=== PATIENT | female | born 1940 | race Caucasian/White ===

== ENCOUNTER 2017-06-15 09:48 | Inpatient (IN) | payer MEDICARE, OTHER, SELFPAY ==
[2017-06-15] VITALS (13 sets, daily range): BP systolic 107–152; BP diastolic 71–112; PULSE 68–94; RESP 16–20; TEMP 36.6–36.7; O2SAT 92–99; BMI 33.9; BMI 31.6; BMI 31.7
--- NOTE | 2017-06-15 09:57 | RAD_ITS ---
STUDY: X-RAY CHEST REASON FOR EXAM: Female, 77 years old. Syncope. TECHNIQUE: Single AP portable view of the chest. COMPARISON: Comparison is made with prior study dated March 15, 2015. FINDINGS: EKG electrodes are seen. Stable mild elevation of the right hemidiaphragm. Mild increased linear density at the left lung base suggestive of linear atelectasis and/or scarring. There is no demonstrated pleural abnormality. There is mild cardiac enlargement. Normal mediastinum and vickie. Normal visualized pulmonary arteries. There is atherosclerotic tortuosity of the aortic arch and descending thoracic aorta. There are diffuse degenerative changes of the visualized thoracic spine. Normal visualized ribs, clavicles, and shoulders. There is no demonstrated abnormality of the visualized soft tissue structures of the upper abdomen. RAD/Chest 1 View (Portable) IMPRESSION: Elevation of the right hemidiaphragm. Linear atelectasis and/or scarring at the left lung base. Electronically Signed: Ryan Jeffers MD at 10:25 EDT Tel [phone], Service support ,
--- NOTE | 2017-06-15 09:57 | EKG12_ITS ---
Test Reason : SINUS ARREST Blood Pressure : / mmHG Vent. Rate : 095 BPM Atrial Rate : 087 BPM P-R Int : 000 ms QRS Dur : 066 ms QT Int : 376 ms P-R-T Axes : 000 006 017 degrees QTc Int : 472 ms Atrial fibrillation Nonspecific ST abnormality Abnormal ECG Confirmed by LISSETT MOORE, AMADEO ([id number]), field map editor CÉSAR KING ([id number]) on 06/19/2017 8:20:51 AM Referred By: ELVIN Confirmed By:AMADEO GALEANA MD
[2017-06-15] MEDS: Aspirin 81 MG TAB.CHEW 324 MG PO (10:14)
[2017-06-15] MEDS: 0.9% Normal Saline 1,000 ML 1000 ML IV (10:15)
[2017-06-15 10:18] LABS: Absolute Lymphocyte Count 1.91 X10^3/ul (0.83-4.51); Absolute Neutrophil Count 2.3 X10^3/uL (2.0-7.7); Basophil# 0.01 X10^3/uL; Basophil% 0.2 % (0-1); Eosinophils% 2.1 % (0-5); Hematocrit 41.1 % (37-47); Hemoglobin 13.7 g/dl (12.0-15.0); Lymphocyte # 1.91 X10^3/ul (4.0); Lymphocyte % 40.6 % (19-41); Mean Corp Hgb Conc 33.3 g/gl (32-36); Mean Corpuscular Hgb 28.8 pg (27.0-32.0); Mean Corpuscular Volume 86.5 fL (81-99); Mean Platelet Vol. 9.6 fl (6.2-12.0); Monocyte# 0.36 X10^3/uL; Monocyte% 7.6 % (0-10); Neutrophil # 2.32 X10^3/uL (2.7-7.7); Neutrophil % 49.3 % (47-70); Platelet Count 234 K/mm3 (150-450); RBC Distribution Width CV 12.7 % (11.6-14.6); RBC Distribution Width SD 39.5 fl (35.1-43.9); Red Blood Count 4.75 M/mm3 (4.2-5.4); White Blood Count 4.7 K/mm3 (4.4-11.0)
[2017-06-15 10:19] LABS: POSITIVE COUNT NO; POSITIVE DIFFERENTIAL NO; POSITIVE MORPHOLOGY NO
[2017-06-15 10:26] LABS: International Normalized Ratio 1.3; Prothrombin Time (Protime)PT. 16.3 SECONDS (11.7-14.9)
[2017-06-15 10:27] LABS: Partial Thromboplast Time 31.4 Seconds (24.1-36.2)
[2017-06-15 10:34] LABS: Anion Gap 8 (5-15); BUN 10 mg/dL (7-18); BUN/Creat Ratio 11.8 RATIO (10-20); Calcium,Total 8.4 mg/dL (8.5-10.1); Chloride 107 mmol/L (98-107); Creatinine, Serum 0.85 mg/dL (0.55-1.02); EST Glomerular Filtration Rate 69 mL/min (>60); Est Glom Filt Rate - Afr Amer 83 mL/min (>60); Estimated Creatinine Clearance 42.45 ml/min; Glucose 121 mg/dL (74-106); Sodium Level 142 mmol/L (136-145)
--- NOTE | 2017-06-15 10:55 | ED.VISSUMM ---
- ER Visit Summary Date of Service: 06/15/17 Chief Complaint: [] Syncope History of Present Illness: The patient is a 77 F [] presents via EMS with several episodes of syncope. EMS reports in route that the patient had several sinus arrest pauses followed by sinus tachycardia. Patient reports her symptoms started last night with dizziness with the first onset of syncope this morning. Patient denies chest pain pre-and post syncopal episodes. She does report palpitations/heart racing. She reports significant dizziness upon arrival. She reports a history of atrial fibrillation on flecainide, Eliquis, lisinopril. Physical Examination: [] Afebrile, vital signs stable. 77-year-old female in no acute distress. Cardiovascular exam was irregularly irregular consistent with atrial fibrillation. Lungs are clear to auscultation with decreased breath sounds at the bases. Abdomen was soft nontender. No significant lower extremity edema. Test Results: [] CBC, BMP within normal limits. INR 1.3. Troponin less than 0.02. EKG shows atrial fibrillation with rate of 95 without ectopy. No previous EKG for comparison. Emergency Department Course and Treatment: [] Patient was immediately evaluated by emergency medicine physician and staff. Patient was in atrial fibrillation and exhibited the previously mentioned sinus pause followed by sinus tachycardia consistent with sick sinus syndrome. She likely requires a pacemaker. Labs and chest x-ray returned normal. We discussed with hospitalist the need for admission to telemetry with consultation to cardiology. Treatment Plan: [] Admit to telemetry unit, consult cardiology. Disposition: [] Admit, stable. Impression: [] Sick sinus syndrome Syncope History of atrial fibrillation Critical care time: 45 minutes This note was generated with [employer] dictation software. It may contain incorrect words, spelling, and punctuation that were not noted in review of the chart prior to signing ED Disposition - Plan for ED Patient: Chief Complaint: Syncope
--- NOTE | 2017-06-15 11:22 | HP.PCM_ITS ---
Problem List (1) Syncope Status: Acute Qualifiers: Syncope type: unspecified Qualified Code(s): R55 - Syncope and collapse (2) Chronic atrial fibrillation Status: Chronic History of Present Illness Date of Admission: 06/15/17 Chief Complaint: Recurrent syncope The patient is a 77 year old F with PMHx chronic atrial fibrillation, on flecainide and metoprolol as well as Eliquis who comes in with complaints of feeling dizzy and passing out several times today. [place] a little bit dizzy yesterday, denied any nausea or vomiting. Noted to have had some sinus pauses and EMS was called. She denied any chest pain or palpitations or fever or chills. Vitals in the ED with stable, orthostatic vitals done on admission were positive , EKG shows atrial fibrillation, telemetry bedtime to go to the floor shows normal sinus rhythm,cardiology has been consulted for possible pacemaker. Past Medical History Past Medical History (Chronic Problems): Chronic Problems Chronic atrial fibrillation (Chronic) Allergies Unable to Assess Allergy (Verified 06/15/17 10:06) Home Medications: Ambulatory Orders Medication Instructions Recorded Allopurinol 100 mg PO DAILY 06/15/17 Apixaban [Eliquis] 5 mg PO BID 06/15/17 Duloxetine HCl 60 mg PO BID 06/15/17 Flecainide [Tambocor] 50 mg PO DAILY 06/15/17 Lisinopril 20 mg PO DAILY 06/15/17 Metoprolol Tartrate [Lopressor] 75 mg PO DAILY 06/15/17 Potassium Chloride [K-Dur] 10 meq PO DAILY 06/15/17 Surgical History: appendectomy, total knee arthroplasty - left, tonsillectomy, - - right foot surgery Psychiatric History: No pertinent psych hx 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 Denies: Anorexia, Chills, Fever, Night Sweats, Malaise, Weight Change Eyes: Denies: Blurred vision, Cataracts, Conjunctivae Inflammation, Double vision, Pain, Redness HEENT: Denies: Difficulty Hearing, Difficulty Swallowing, Head Aches, Hearing Changes, Sinus Congestion, Sinus Drainage Cardiovascular: Reports: Light Headedness, Syncope. Denies: Chest Pain, Claudication, Orthopnea, Palpitations, Paroxysmal Noc. Dyspnea Respiratory: Denies: Cough, Hemoptysis, Pleuritic Pain, Shortness of breath at rest, Shortness of breath upon exertion, Sputum production Gastrointestinal: Denies: Abdominal Pain, Constipation, Hematemesis, Nausea, Vomiting Genitourinary: Denies: Dysuria, Frequency, Incontinence Gynecological: Denies: Breast symptoms, Excessively long or heavy periods Musculoskeletal: Denies: Joint Pain, Joint stiffness, Joint swelling, Joint Tenderness Skin: Denies: Rash, Wounds Neurological: Denies: Numbness, Tingling, Focal weakness Psychiatric: Denies: Anxiety, Depression, Homicidal Ideations, Suicidal Ideations Hematologic/ Lymphatic: Denies: Easy Bruising, Easy Bleeding VTE Information - Inpt Only VTE Present on Admission: No VTE Pharm Prophylaxis ordered?: Yes Patient Problems: Active and Suspected Problems Syncope (Acute) - Physical Exam General: Alert, Oriented x3, Cooperative HEENT: Atraumatic, PERRLA, EOMI, Normocephalic Neck: Supple, No JVD, Negative Carotid Bruits Lungs: Clear to auscultation, Normal air movement Cardiovascular: Regular rate, No murmurs Abdomen: Bowel Sounds Present, Soft, Non Tender Extremities: No edema, Capillary Refill Less than 3 Seconds Skin: No rashes, No breakdown Musculoskeletal: No Tenderness to Palpation of Joints or Extremities Neurological: Cranial nerves II-XII grossly intact Psych/Mental Status: Normal Affect, Appropriate Vital Signs Temp Pulse Resp BP Pulse Ox 98.0 F 91 17 114/101 H 98 06/15/17 09:50 06/15/17 11:05 06/15/17 11:05 06/15/17 11:05 06/15/17 11:05 Oxygen Flow Rate (L/min) 2 Oxygen Delivery Method Nasal Cannula Weight: 84.141 kg Body Mass Index (BMI) 33.9 Laboratory Tests Past 24 Hrs 06/15/17 06/15/17 06/15/17 10:00 10:00 10:00 WBC 4.7 RBC 4.75 Hgb 13.7 Hct 41.1 MCV 86.5 MCH 28.8 MCHC 33.3 RDW 12.7 RDW Differential 39.5 Plt Count 234 MPV 9.6 Immature Gran % (Auto) 0.200 Neut % (Auto) 49.3 Lymph % (Auto) 40.6 Heard % (Auto) 7.6 Eos % (Auto) 2.1 Baso % (Auto) 0.2 Absolute Neuts (auto) 2.3 Absolute Lymphs (auto) 1.91 Total Counted Not Reportable PT 16.3 H INR 1.3 APTT 31.4 Sodium 142 Potassium 4.0 Chloride 107 Carbon Dioxide 27.0 Anion Gap 8 BUN 10 Creatinine 0.85 Estim Creat Clear Calc 42.45 Est GFR (MDRD) Af Amer 83 Est GFR (MDRD) Non-Af 69 BUN/Creatinine Ratio 11.8 Glucose 121 H Calcium 8.4 L Troponin I < 0.02 Assessment/Plan Active and Suspected Problems Syncope (Acute) 77 year old F with PMHx chronic atrial fibrillation, on flecainide and metoprolol as well as Eliquis who comes in with complaints of feeling dizzy and passing out several times today. 1. Recurrent episodes of syncope with sinus pauses seen by EMS, on flecainide, metoprolol, orthostatic vitals are positive Plan; admit to PCU, cardiology consult, monitor on telemetry, IV fluid boluses with maintenance IV fluids, recheck orthostatics in a.m., hold metoprolol and flecainide, monitor on telemetry 2. Chronic atrial fibrillation, on flecainide,, metoprolol, Eliquis, EKG in ED showed A. fib, normal sinus rhythm on telemetry in PCU, will hold Eliquis, metoprolol and flecainide, continue to monitor on telemetry 3. History of recurrent kidney stones, gout, on allopurinol 4. Hypertension, on lisinopril, metoprolol, continue to monitor blood pressure with holding parameters 5. Anxiety/depression on Cymbalta 6. DVT Prophylaxis with heparin subcu Code Visit Inpatient E&M: 97223 Init Hosp L3
[2017-06-15] MEDS: 0.9% Normal Saline 1,000 ML 125 ML IV ×2 (14:53→22:05)
--- NOTE | 2017-06-15 16:21 | CASEMGMT ---
Social Work Pt admitted today and expressing concerns about her . 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 Pt concerned and anxious about care of . Received phone call from [facility] that family has called them with potential admission for pt . SW provided emotional support to pt and assistance with decision making concerning pt spouse at home. Provided information to [facility] on fax number to [facility] medical records and need to fax request for medical records to assist with pt spouse's placement. SW will remain available should further needs arise. RACIEL Watkins
--- NOTE | 2017-06-15 17:10 | CHAPLAIN ---
Type of Pastoral Visit _x__ Initial Visit ___ Follow-up Visit ___ On-call Visit ___ General Patient Visit ___ Spiritual Assessment ___ Family Conference ___ Bereavement ___ Rapid Response ___ Code Blue ___ Other (describe below) Pastoral Care Referral From _x__ Patient ___ Family ___ Nurse ___ Physician ___ Sonoscope Operator ___ Clin Tech ___ Other (describe below) Sacrament/Intervention _x__ Active listening ___ Anointing ___ Congregation ___ Bereavement ___ Communion ___ Sherri exploration ___ ___ Life review _x__ Prayer ___ Reconciliation ___ Sacrament of Sick _x__ Supportive presence ___ Wedding ___ Other (describe below) Pastoral Comments
--- NOTE | 2017-06-15 17:35 | CON.PCM_ITS ---
Reason for Consult Date of Consultation: 06/15/17 Reason for Consultation: Evaluation of abnormal heart rhythm. History of Present Illness: The patient is a 77 year old F with a history of atrial fibrillation probably paroxysmal who was previously been followed by the electrophysiology service admitted in the hospital. She presented to the emergency room today because she had had a few episodes of near syncope. She does not remember that she has had any lizzy syncopal episode. The last episode that occurred she was reading the newspaper and felt that she was going to [facility]. She called the emergency medical squad and during the squad transfer she was noted to have several episodes where she had some pauses but none longer than 3 seconds. She had previously been on metoprolol as well as Eliquis and flecainide. She has had no previous chest pain or shortness breath or paroxysmal nocturnal dyspnea or pedal edema. At that time she was seen in the emergency room she was noted to be in atrial fibrillation with a controlled ventricular response rate with normal vitals. Her electrocardiogram confirmed atrial fibrillation. Her rhythm strips were reviewed and there were periods of slow ventricular response rate of approximately 2-3 seconds. [] Past Medical History Allergies/Adverse Reactions: Allergies No Known Allergies Allergy (Verified 06/15/17 12:24) Home Medications: Ambulatory Orders Medication Instructions Recorded Allopurinol 100 mg PO DAILY 06/15/17 Apixaban [Eliquis] 5 mg PO BID 06/15/17 Duloxetine HCl 60 mg PO BID 06/15/17 Flecainide [Tambocor] 50 mg PO DAILY 06/15/17 Lisinopril 20 mg PO DAILY 06/15/17 Metoprolol Tartrate [Lopressor] 75 mg PO DAILY 06/15/17 Potassium Chloride [K-Dur] 10 meq PO DAILY 06/15/17 Past Medical History (Chronic Problems): Chronic Problems Chronic atrial fibrillation (Chronic) Surgical History: appendectomy, total knee arthroplasty - left, tonsillectomy, - - right foot surgery Psychiatric History: No pertinent psych hx 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 Denies: Chest Discomfort, Shortness of Breath, Orthopnea, PND, Peripheral Edema, Palpitations, Lightheadedness, Syncope Respiratory: Denies: Cough, Sputum Production, Hemoptysis Gastrointestinal: Denies: Hematemesis, Hematochezia, Melena Genitourinary: Denies: Dysuria, Hematuria Skin: Denies: Rash Subjectve: Pleasant talkative lady in no apparent distress Objective: Vital Signs Temp Pulse Resp BP Pulse Ox 98 F 68 16 107/75 97 06/15/17 16:20 06/15/17 16:20 06/15/17 16:20 06/15/17 16:20 06/15/17 16:20 Oxygen Delivery Method Room Air Weight: 173 lb 1.006 oz Body Mass Index (BMI) 31.6 Orthostatic Vital Signs Start: 06/15/17 12:09 Freq: q24h Status: Active Protocol: Activity Type Activity Date Activity User E-Sign Co-Sign Detail Recorded Client Recorded Date Recorded By Document 06/15/17 12:09 MJO [id number] 06/15/17 12:19 MJO 06/15/17 12:09 Orthostatic Vitals Standing -Blood Pressure (90/60-120/80) 118/78 -Extremity Use Left Arm -Pulse Rate (60-100) 80 Sitting -Blood Pressure (90/60-120/80) 134/71 H -Extremity Use Left Arm -Pulse Rate (60-100) 94 Lying -Blood Pressure (90/60-120/80) 142/81 H -Extremity Use Left Arm -Pulse Rate (60-100) 89 General: Awake, Alert, Oriented x 3 HEENT: PERRL, EOMI, Sclera Non Icteric Neck: Supple, Good ROM, No Lymph Node Enlargement Lungs: Clear to auscultation Cardiovascular: Irregular Rhythm, Normal S1, Normal S2, No Murmurs, No Rubs, No Gallops Vascular: No Carotid Bruits, Normal Femoral Pulses, Normal Radial Pulses, Normal Dorsalis Pedal Pulse, Normal Posterior Tibial Pulses Abdomen: Bowel Sounds Present, Soft, Non Tender, No HSM, No Organomegaly Extremities: No Cyanosis, No Clubbing, No edema Neurological: No Focal Motor or Sensory Deficit 06/15/17 14:00: Troponin I < 0.02 Rhythm: EKG: Atrial fibrillation with a controlled ventricular response rate ECHO: Stress Test: Cardiac Cath: PCI: CT Surgery: Holter monitor: EPS: PPM: CXR: Chest CT Scan: Assessment/Plan 1. Paroxysmal atrial fibrillation with periods of pauses. Patient presents with dizziness and near syncope. She is noted to be in atrial fibrillation with a fairly controlled ventricular response rate. She also has orthostatic hypotension which has been noted on measurement of her blood pressure. Her pauses do not appear to be more than 4.5 seconds. My recommendation at this time will be to hold her beta-kurt and flecainide overnight and see whether she does have any further pauses after her hydration status has been corrected. She is on daily flecainide as well as daily metoprolol titrate doses which would need to be verified. I will recommend watching her on telemetry and if no significant pauses are found then one can reinstitute the medications at a lower dose and perform an outpatient Holter monitor or event monitor. Her anticoagulation will be held overnight and resumed in the morning. At this point in time I do not see a need for a permanent pacemaker but this may change as the patient has any rhythm changes. An echocardiogram should be performed to reassess her left ventricular function. 2. Dizziness. Patient presents with dizziness and is noted to have orthostatic hypotension. My recommendation would be to reduce the dose of her lisinopril hydrate her appropriately assess her left ventricular function and see how she does. Further recommendations will then be made depending on the results and her response to the above therapy. Thank you for allowing me to participate in the care of your patient. Please don't hesitate to call if any issues arise
--- NOTE | 2017-06-15 17:36 | ECHOD_ITS ---
Reason For Study: Afib, Aflutter Procedure This was a 2D Doppler, Color Flow transthoracic echocardiogram. Exam performed portable in patient room. Left Ventricle Normal LV size. Left ventricular systolic function is normal. The estimated ejection fraction is 60 %. Transmitral diastolic flow velocities suggest mild (stage 1) diastolic dysfunction (reversed pattern). No regional wall motion abnormalities noted. Right Ventricle Normal RV size. Normal systolic function. Atria Normal left atrium. Normal right atrium. Mitral Valve There is mild mitral annular calcification. Mild (1+) eccentric mitral valve insufficiency. Tricuspid Valve Normal tricuspid valve. Mild tricuspid valve insufficiency. Pulmonary artery systolic pressure is 20 mmHg. Aortic Valve Trisinus/trileaflet aortic valve. Mild (1+) aortic valve insufficiency. Pulmonic Valve Normal pulmonic valve. Great Vessels Normal aortic root. The pulmonary artery is normal size. Normal inferior vena cava. Pericardium/Pleural No pericardial effusion. MMode/2D Measurements & Calculations LVIDd: 4.9 cm IVSd: 0.97 cm Ao root diam: 3.2 cm LVIDs: 2.7 cm LVPWd: 1.1 cm LA dimension: 4.7 cm RVDd: 3.3 cm FS: 45.4 % LAV(MOD-bp): 46.2 ml LA A4 area: 16.0 cm2 RA A4 area: 11.6 cm2 LAV(MOD-bp) Indexed: 25.7 ml/m2 LAV(MOD-sp2): 48.4 ml LAV(MOD-sp4): 39.7 ml Doppler Measurements & Calculations MV E max bridger: 83.1 cm/sec Lat Peak E' Bridger: 8.6 cm/sec Med Peak E' Bridger: 5.6 cm/sec MV A max bridger: 100.4 cm/sec E/E' lat: 9.7 E/E' med: 14.8 MV E/A: 0.83 Ao V2 max: 182.4 cm/sec LV V1 max: 132.9 cm/sec PA V2 max: 85.9 cm/sec Ao max P.3 mmHg LV V1 max P.1 mmHg Ao V2 mean: 131.8 cm/sec Ao mean P.6 mmHg Ao V2 VTI: 37.0 cm TR max bridger: 192.6 cm/sec TR max P.8 mmHg Interpretation Summary Normal LV size. Left ventricular systolic function is normal. The estimated ejection fraction is 60 %. Transmitral diastolic flow velocities suggest mild (stage 1) diastolic dysfunction (reversed pattern). Structurally normal valves. Ordering Physician: Michael Crespo Referring Physician: Beatriz Subramanian Performed By: Cristine Gunn, MILLA, RVT
[2017-06-16] VITALS (10 sets, daily range): BP systolic 134–166; BP diastolic 71–96; PULSE 72–90; RESP 16–24; TEMP 36.9–37; O2SAT 95–98
[2017-06-16] MEDS: Acetaminophen 325 MG Tablet 650 MG PO ×2 (03:34→09:21)
[2017-06-16] MEDS: 0.9% Normal Saline 1,000 ML 125 ML IV (06:04)
[2017-06-16] MEDS: Allopurinol 100 MG Tablet PO (07:45)
[2017-06-16] MEDS: DULoxetine Hcl 60 MG Capsule PO (07:45)
[2017-06-16] MEDS: Lisinopril 10 MG Tablet PO (07:47)
--- NOTE | 2017-06-16 09:41 | PCM.DC ---
- Discharge Diagnoses Current Active Problems: Current Active and Chronic Problems Syncope (Acute) Chronic atrial fibrillation (Chronic) Reason(s) for Visit for Discharge Instructions: Recurrent syncope, dizziness You will use the following diet at home:: Cardiac Your food should be the consistency of: Regular Your liquids should be the consistency of: Regular/Thin Discharge Activity: Return to Normal Activity Additional Instructions: Note the changes to your medications. You will be discharged with a 48 hour holter monitor. Continue to drink fluids to your thirst, to keep yourself hydrated. Allergies/Adverse Reactions: Allergies No Known Allergies Allergy (Verified 06/15/17 12:24) Medications to take at Discharge Allopurinol 100 mg PO DAILY 06/15/17 Duloxetine HCl 60 mg PO DAILY 06/15/17 Flecainide [Tambocor] 50 mg PO BID 06/15/17 Potassium Chloride [K-Dur] 10 meq PO DAILY 06/15/17 Apixaban [Eliquis] 5 mg PO BID 06/16/17 Lisinopril [Zestril] 20 mg PO DAILY 06/16/17 Metoprolol Tartrate 75 mg PO BID 06/16/17 Primary Care Physician: Pepper Badillo,Out of [NON-STAFF] - Please follow up with your Primary Care Physician in: within 2 weeks Please Follow Up With: Michael Crespo MD When: within 2 weeks; follow-up with 48 hour holter monitor Proposed Discharge Date: 06/16/17
[2017-06-16 09:52] LABS: Hematocrit 37.3 % (37-47); Hemoglobin 12.3 g/dl (12.0-15.0); Mean Corpuscular Hgb 29.1 pg (27.0-32.0); Mean Corpuscular Volume 88.2 fL (81-99); Platelet Count 173 K/mm3 (150-450); RBC Distribution Width CV 12.6 % (11.6-14.6); Red Blood Count 4.23 M/mm3 (4.2-5.4)
[2017-06-16 09:53] LABS: Scan Indicated on CBC? Y/N NO
[2017-06-16 09:59] LABS: Anion Gap 10 (5-15); BUN 8 mg/dL (7-18); BUN/Creat Ratio 11.8 RATIO (10-20); Calcium,Total 8.3 mg/dL (8.5-10.1); Chloride 106 mmol/L (98-107); Creatinine, Serum 0.68 mg/dL (0.55-1.02); EST Glomerular Filtration Rate 89 mL/min (>60); Est Glom Filt Rate - Afr Amer 108 mL/min (>60); Estimated Creatinine Clearance 36.08 ml/min; Glucose 111 mg/dL (74-106); Sodium Level 144 mmol/L (136-145)
--- NOTE | 2017-06-16 10:15 | PN.CARD_ITS ---
Subjectve: Patient see and evaluated and feels well Objective: Vital Signs Temp Pulse Resp BP Pulse Ox 98.5 F 72 18 138/71 H 98 06/16/17 07:50 06/16/17 07:50 06/16/17 07:50 06/16/17 07:50 06/16/17 07:50 Oxygen Delivery Method Room Air Weight: 173 lb 1.006 oz Body Mass Index (BMI) 31.6 Orthostatic Vital Signs Start: 06/15/17 12:09 Freq: q24h Status: Active Protocol: Activity Type Activity Date Activity User E-Sign Co-Sign Detail Recorded Client Recorded Date Recorded By Document 06/16/17 03:45 AMB [id number] 06/16/17 03:46 AMB 06/16/17 03:45 Orthostatic Vitals Standing -Blood Pressure (90/60-120/80) 166/95 H -Extremity Use Right Arm -Pulse Rate (60-100) 82 Sitting -Blood Pressure (90/60-120/80) 134/94 H -Extremity Use Right Arm -Pulse Rate (60-100) 89 Lying -Blood Pressure (90/60-120/80) 150/96 H -Extremity Use Right Arm -Pulse Rate (60-100) 73 Intake and Output for Last 24 Hours 06/14/17 06/15/17 06/16/17 23:59 23:59 23:59 Intake Total 1464 / 1464 1259 / 1259 Output Total 200 / 200 Balance 1264 / 1264 1259 / 1259 General: Awake, Alert, Oriented x 3 HEENT: PERRL, EOMI, Sclera Non Icteric Neck: Supple, Good ROM, No Lymph Node Enlargement Lungs: Clear to auscultation Cardiovascular: Regular Rhythm, Normal S1, Normal S2, No Murmurs, No Rubs, No Gallops Vascular: No Carotid Bruits, Normal Femoral Pulses, Normal Radial Pulses, Normal Dorsalis Pedal Pulse, Normal Posterior Tibial Pulses Abdomen: Bowel Sounds Present, Soft, Non Tender, No HSM, No Organomegaly Extremities: No Cyanosis, No Clubbing, No edema Neurological: No Focal Motor or Sensory Deficit 06/15/17 14:00: Troponin I < 0.02 06/15/17 18:00: Troponin I < 0.02 06/16/17 00:40: Troponin I < 0.02 06/16/17 08:45: WBC 3.0 L, RBC 4.23, Hgb 12.3, Hct 37.3, MCV 88.2, MCH 29.1, MCHC 33.0, RDW 12.6, RDW Differential 40.0, Plt Count 173, MPV 10.0 06/16/17 08:45: Sodium 144, Potassium 4.0, Chloride 106, Carbon Dioxide 28.0, Anion Gap 10, BUN 8, Creatinine 0.68, Est GFR (MDRD) Af Amer 108, Est GFR (MDRD ) Non-Af 89, BUN/Creatinine Ratio 11.8, Glucose 111 H, Calcium 8.3 L Rhythm: EKG: ECHO: Stress Test: Cardiac Cath: PCI: CT Surgery: Holter monitor: EPS: PPM: CXR: Chest CT Scan: Medical Necessity - Tobacco Use Smoking Status: Never smoker Assessment/Plan 1. Paroxysmal atrial fibrillation with periods of pauses. Patient presents with dizziness and near syncope. She is noted to be in atrial fibrillation with a fairly controlled ventricular response rate. She also has orthostatic hypotension which has been noted on measurement of her blood pressure. Her pauses do not appear to be more than 4.5 seconds. My recommendation at this time will be to reduce her beta-kurt and flecainide and see whether she does have any further pauses. I will recommend watching her on telemetry for a few hours and if no significant pauses are found then one can reinstitute the medications at a lower dose and perform an outpatient Holter monitor or event monitor. Her anticoagulation will be resumed in the morning. At this point in time I do not see a need for a permanent pacemaker but this may change as the patient has any rhythm changes. An echocardiogram should be performed to reassess her left ventricular function. 2. Dizziness. Patient presents with dizziness and is noted to have orthostatic hypotension. My recommendation would be to reduce the dose of her lisinopril hydrate her appropriately assess her left ventricular function and see how she does. Further recommendations will then be made depending on the results and her response to the above therapy. Thank you for allowing me to participate in the care of your patient. Please don't hesitate to call if any issues arise
[2017-06-16] MEDS: Flecainide 100 MG Tablet 50 MG PO (11:46)
[2017-06-16] MEDS: APIXABAN 5 MG TABLET PO (11:47)
[2017-06-16] MEDS: Metoprolol Tartrate 25 MG Tablet PO (11:47)
--- NOTE | 2017-06-16 13:35 | DS.PCM_ITS ---
Discharge Date and Diagnosis - Problem List Patient Problems: Active and Suspected Problems Syncope (Acute) Date of Admission: 06/15/17 Date of Discharge: 06/16/17 - Primary Discharge Diagnosis Active and Suspected Problems Syncope (Acute) Orthostatic hypotension Sinus pauses - Secondary Discharge Diagnosis Chronic Problems Paroxysmal atrial fibrillation (Chronic) Hospital Course and Treatment Imaging Results: Clinical Impression(s) from Imaging Studies Chest X-Ray 06/15/17 09:57 IMPRESSION: Elevation of the right hemidiaphragm. Linear atelectasis and/or scarring at the left lung base. Electronically Signed: Ryan Jeffers MD at 10:25 EDT Tel [phone], Service support , Cardiology Operations: None Procedures: 2-D Echocardiogram Summary of Care Provided: 77 year old female with PMHx with chronic atrial fibrillation, on flecainide and metoprolol as well as Eliquis admitted with complaints of feeling dizzy and passing out several times today. 1. Recurrent episodes of syncope with sinus pauses seen on telemetry, pauses were not more than 4.5 seconds, admitted to a telemetry bed, home flecainide and metoprolol were held, orthostatic vitals were positive, patient received fluid boluses and maintenance IV fluids, repeat orthostatic vitals in the morning was negative. Cardiology was consulted, did not recommend pacemaker yet , recommended reduced doses of metoprolol to 25 mg p.o. twice daily and flecainide kept at 50 mg p.o. twice daily, patient was asymptomatic on day of discharge and was discharged home with 48 hour Holter monitor and follow-up with cardiology. 2. Positive orthostatic vitals, no history of diarrhea or nausea or vomiting, likely due to poor p.o. intake/dehydration, status post IV fluid boluses and maintenance fluid, not orthostatic at discharge. 3. Paroxysmal atrial fibrillation, on flecainide,, metoprolol, Eliquis, 4. History of recurrent kidney stones, gout, on allopurinol 5. Hypertension, on lisinopril, metoprolol 6. Anxiety/depression on Cymbalta Discharge Diet: Low fat/ Low Cholesterol, 8 Cup Fluid Restriciton, 2000 mg Sodium Diet Discharge Activity: Return to Normal Activity Weight Bearing Status: Weight bearing as tolerated Home Medications: Medications to take at Discharge Allopurinol 100 mg PO DAILY 06/15/17 Duloxetine HCl 60 mg PO DAILY 06/15/17 Flecainide [Tambocor] 50 mg PO BID 06/15/17 Potassium Chloride [K-Dur] 10 meq PO DAILY 06/15/17 Apixaban [Eliquis] 5 mg PO BID 06/16/17 Lisinopril [Zestril] 20 mg PO DAILY 06/16/17 Metoprolol Tartrate 75 mg PO BID 06/16/17 Primary Care Physician: Pepper Doctor,Out of [NON-STAFF] - Please follow up with your Primary Care Physician in: within 2 weeks Please Follow Up With: Michael Crespo MD When: within 2 weeks; follow-up with 48 hour holter monitor Disposition: Home Minutes spent on discharge:: 25 Patient Condition:: Stable Medical Necessity - Tobacco Use Smoking Status: Never smoker Meaningful Use Info Meaningful Use Diagnoses (Choose all that apply): None applicable Code Visit Inpatient E&M: 44620 Disch Hosp
== END 2017-06-16 16:57 | disposition home or self-care (01) | DRG 312 ==
LOC: ED 11:07 → PCU 11:31
PROVIDERS: Admitting Provider Internal Medicine; Emergency Provider Emergency Medicine; Family Provider Family Medicine; PCP Family Medicine; Visit Provider Internal Medicine
DX: R55 Syncope and collapse (principal); E86.0 Dehydration; I48.0 Paroxysmal atrial fibrillation; E66.9 Obesity, unspecified; I10 Essential (primary) hypertension; F41.9 Anxiety disorder, unspecified; F32.9 Major depressive disorder, single episode, unspecified; I45.5 Other specified heart block; I95.1 Orthostatic hypotension; Z79.02 Long term (current) use of antithrombotics/antiplatelets; Z79.899 Other long term (current) drug therapy; Z68.33 Body mass index [BMI] 33.0-33.9, adult; Z87.442 Personal history of urinary calculi; M10.9 Gout, unspecified
CPT/HCPCS: 36415; 71045; 80048; 84484; 85025; 85027; 85610; 85730; 93005; 93306; 99285; J7030; J7050; A4216

== ENCOUNTER 2017-06-16 16:58 | Outpatient (CLI) | payer MEDICARE, OTHER, SELFPAY | END 2017-06-16 17:50 | disposition home or self-care (01) | LOC: CVS 17:10 → PCU 17:28 | PROVIDERS: Family Provider Family Medicine; PCP Family Medicine; Visit Provider Internal Medicine | DX: R55 Syncope and collapse (principal) | CPT/HCPCS: 93225 ==

== ENCOUNTER → 2018-04-17 22:12 | Outpatient (CLI) | payer MEDICARE, OTHER, SELFPAY ==
[2018-04-17 22:11] VITALS: BMI 33.0
[2018-04-17 22:45] LABS: Absolute Lymphocyte Count 1.91 X10^3/ul (0.83-4.51); Absolute Neutrophil Count 2.5 X10^3/uL (2.0-7.7); Eosinophil# 0.11 X10^3/uL; Eosinophils% 2.3 % (0-5); Hematocrit 39.3 % (37-47); Hemoglobin 12.6 g/dl (12.0-15.0); Lymphocyte # 1.91 X10^3/ul (4.0); Lymphocyte % 39.4 % (19-41); Mean Corp Hgb Conc 32.1 g/gl (32-36); Mean Corpuscular Hgb 28.4 pg (27.0-32.0); Mean Corpuscular Volume 88.7 fL (81-99); Mean Platelet Vol. 10.8 fl (6.2-12.0); Monocyte# 0.33 X10^3/uL; Monocyte% 6.8 % (0-10); Neutrophil % 51.5 % (47-70); Platelet Count 214 K/mm3 (150-450); RBC Distribution Width CV 13.6 % (11.6-14.6); RBC Distribution Width SD 43.4 fl (35.1-43.9); Red Blood Count 4.43 M/mm3 (4.2-5.4); White Blood Count 4.9 K/mm3 (4.4-11.0)
[2018-04-17 22:47] LABS: POSITIVE COUNT NO; POSITIVE DIFFERENTIAL NO; POSITIVE MORPHOLOGY NO
[2018-04-17 22:52] LABS: AST(SGOT) 18 U/L (15-37); Alanine Aminotransfer ALT/SGPT 21 U/L (13-56); Albumin, Serum 3.7 g/dL (3.2-5.0); Alkaline Phosphatase 87 U/L (45-117); Anion Gap 8 (5-15); BUN 13 mg/dL (7-18); BUN/Creat Ratio 15.4 RATIO (10-20); Calcium,Total 8.3 mg/dL (8.5-10.1); Chloride 104 mmol/L (98-107); Cholesterol 187 mg/dL (200); Creatinine, Serum 0.84 mg/dL (0.55-1.02); EST Glomerular Filtration Rate 69 mL/min (>60); Est Glom Filt Rate - Afr Amer 83 mL/min (>60); Globulin 3.7 g/dL (2.2-4.2); Glucose 108 mg/dL (74-106); High Density Lipoprotein 46 mg/dL; Potassium 4.1 mmol/L (3.5-5.1); Protein, Total 7.4 g/dL (6.4-8.2); Sodium Level 139 mmol/L (136-145); Triglycerides 373 mg/dL; Uric Acid 4.9 mg/dL (2.6-6.0); Very Low Density Lipoprotein 75 mg/dL (5-40)
== END ==
PROVIDERS: Family Provider Family Medicine; PCP Family Medicine; Referring Provider Nurse Practitioner; Visit Provider Nurse Practitioner
DX: I10 Essential (primary) hypertension (principal); M79.7 Fibromyalgia; M10.9 Gout, unspecified
CPT/HCPCS: 80053; 80061; 84550; 85025

== ENCOUNTER → 2018-06-29 | Outpatient (CLI) | payer MEDICARE, OTHER, SELFPAY ==
[2018-06-29 11:09] VITALS: BMI 34.2
[2018-06-29 21:03] LABS: Absolute Lymphocyte Count 1.88 X10^3/ul (0.83-4.51); Absolute Neutrophil Count 2.4 X10^3/uL (2.0-7.7); Basophil# 0.02 X10^3/uL; Basophil% 0.4 % (0-1); Eosinophil# 0.09 X10^3/uL; Eosinophils% 1.9 % (0-5); Hematocrit 39.4 % (37-47); Hemoglobin 12.9 g/dl (12.0-15.0); Lymphocyte # 1.88 X10^3/ul (4.0); Lymphocyte % 39.6 % (19-41); Mean Corp Hgb Conc 32.7 g/gl (32-36); Mean Corpuscular Hgb 29.1 pg (27.0-32.0); Mean Corpuscular Volume 88.9 fL (81-99); Mean Platelet Vol. 9.9 fl (6.2-12.0); Monocyte# 0.35 X10^3/uL; Monocyte% 7.4 % (0-10); Neutrophil # 2.41 X10^3/uL (2.7-7.7); Neutrophil % 50.7 % (47-70); Platelet Count 216 K/mm3 (150-450); RBC Distribution Width CV 14.3 % (11.6-14.6); RBC Distribution Width SD 46.8 fl (35.1-43.9); Red Blood Count 4.43 M/mm3 (4.2-5.4); White Blood Count 4.8 K/mm3 (4.4-11.0)
[2018-06-29 21:20] LABS: BUN 14 mg/dL (7-18); Creatinine, Serum 0.84 mg/dL (0.55-1.02); EST Glomerular Filtration Rate 69 mL/min (>60); Glucose 113 mg/dL (74-106)
[2018-06-29 21:21] LABS: AST(SGOT) 21 U/L (15-37); Alanine Aminotransfer ALT/SGPT 22 U/L (13-56); Alkaline Phosphatase 85 U/L (45-117); Anion Gap 5 (5-15); BUN/Creat Ratio 16.6 RATIO (10-20); CRP 7.17 mg/L (0.0-3.0); Calcium,Total 8.7 mg/dL (8.5-10.1); Chloride 106 mmol/L (98-107); Erythrocyte Sedimentation Rate 10 mm/hr (0-30); Est Glom Filt Rate - Afr Amer 83 mL/min (>60); Globulin 3.9 g/dL (2.2-4.2); Potassium 4.5 mmol/L (3.5-5.1); Protein, Total 7.9 g/dL (6.4-8.2); Rheumatoid Factor < 10.0 IU/mL (<15); Sodium Level 141 mmol/L (136-145)
[2018-06-29 21:22] LABS: POSITIVE COUNT NO; POSITIVE DIFFERENTIAL NO; POSITIVE MORPHOLOGY NO
[2018-07-02 16:07] LABS: ANTINUCLEAR ANTIBODIES DIRECT Positive (Negative); Anti-Centromere B Ab <0.2 AI (0.0-0.9); Anti-Chromatin <0.2 AI (0.0-0.9); Anti-Jo <0.2 AI (0.0-0.9); Anti-Scleroderma-70 AB <0.2 AI (0.0-0.9); RNP Ab 3.7 AI (0.0-0.9); SJOGREN'S Anti-SS-A test < 0.2 AI (0.0-0.9); SJOGREN'S Anti-SS-B test < 0.2 AI (0.0-0.9); Smith Ab <0.2 AI (0.0-0.9)
[2018-07-03 17:26] LABS: Anti-dsDNA Ab <1 IU/mL (0-9)
== END | disposition home or self-care (01) ==
LOC: OLS.AHF 20:47 → LABSPEC 23:44
PROVIDERS: Family Provider Family Medicine; PCP Family Medicine; Referring Provider Nurse Practitioner; Visit Provider Nurse Practitioner
DX: M06.9 Rheumatoid arthritis, unspecified (principal); R22.1 Localized swelling, mass and lump, neck; M21.949 Unspecified acquired deformity of hand, unspecified hand; R59.0 Localized enlarged lymph nodes
CPT/HCPCS: 80053; 85025; 85652; 86038; 86140; 86225; 86235; 86431

== ENCOUNTER 2019-01-13 16:57 | Emergency (ER) | payer MEDICARE, OTHER, SELFPAY ==
[2018-11-07 17:20] VITALS: BMI 34.3
[2019-01-13 16:58] VITALS: BP 162/95; PULSE 93; RESP 19; TEMP 36.1; O2SAT 97; BMI 33.4
--- NOTE | 2019-01-13 18:31 | RAD_ITS ---
STUDY: X-RAY - LEFT KNEE REASON FOR EXAM: Female, 78 years old. Pain, stiffness TECHNIQUE: 4 view(s) of the knee. COMPARISON: None. FINDINGS: There is demineralization of the visualized distal femur. There is demineralization of the tibia and fibula. Subchondral changes noted in the medial tibia. Normal proximal tibiofibular articulation. There is mild degenerative arthrosis of the medial femorotibial compartment. There is mild degenerative arthrosis of the lateral femorotibial compartment. There is mild degenerative arthrosis of the patellofemoral articulation. Chondrocalcinosis noted The soft tissue structures are unremarkable. RAD/Knee 4 or More Views IMPRESSION: Tricompartmental arthrosis with chondrocalcinosis. No demonstrated fracture. There are subchondral lucencies in the medial proximal tibia Electronically Signed: Eulalio Pringle MD at 19:21 EST , Service support ,
--- NOTE | 2019-01-13 18:32 | RAD_ITS ---
STUDY: X-RAY - RIGHT KNEE REASON FOR EXAM: Female, 78 years old. Pain and stiffness TECHNIQUE: 5 view(s) of the knee. COMPARISON: None. FINDINGS: There is demineralization of the visualized distal femur. There is demineralization of the tibia and fibula. Normal proximal tibiofibular articulation. There is moderate degenerative arthrosis of the medial femorotibial compartment with moderate joint space narrowing. There is mild degenerative arthrosis of the lateral femorotibial compartment. There is moderate degenerative arthrosis of the patellofemoral articulation. Chondrocalcinosis noted in the lateral compartment The soft tissue structures are unremarkable. RAD/Knee 4 or More Views IMPRESSION: Tricompartmental arthrosis with chondrocalcinosis. Electronically Signed: Eulalio Pringle MD at 19:19 EST , Service support ,
--- NOTE | 2019-01-13 18:32 | ED.VIS.GEN ---
History of Present Illness Chief Complaint: Lower Extremity Injury Detail of Chief Complaint: Right hip pain, left knee pain, right knee pain, infection on chin Informant: Patient Onset: Weeks Current Severity: Moderate Maximum Severity: Moderate Narrative: Patient states that 3 weeks ago she developed pain to her medial left knee and a hematoma on her left peralta. She has chronic right knee pain but usually her left knee does not bother her. It is continued to be painful for the past 3 weeks. She states yesterday morning she woke with right hip pain. She had difficulty lifting her leg. She was watching her grandchildren over the weekend and tried to pick 1 of them up, but does not remember hurting herself at that time. She also complains of infection to her chin from pulling her whiskers and picking at the skin. Past Medical History - Allergies and Home Meds Allergies/Adverse Reactions: Allergies Sulfa (Sulfonamide Antibiotics) Allergy (Severe, Verified 01/13/19 18:14) rash pine tree Allergy (Uncoded 01/13/19 18:14) Unknown some metals Allergy (Uncoded 01/13/19 18:14) Unknown Prior records reviewed: Yes Past Medical History: - - Reviewed Surgical History: appendectomy, total knee arthroplasty - left, tonsillectomy, - - right foot surgery Smoking Status: Former smoker - Family History Maternal Family History: Family History (Last Reviewed 08/12/18 @ 13:26 by ELY Powell) Father Heart disease Mother Heart disease Rheumatoid arthritis Sister No problems noted. Other CHF (congestive heart failure) Family History: Reports: Heart Disease - Heart failure Paternal Family History: Family History (Last Reviewed 08/12/18 @ 13:26 by ELY Powell) Father Heart disease Mother Heart disease Rheumatoid arthritis Sister No problems noted. Other CHF (congestive heart failure) Family History: Reports: Heart Disease Review of Systems General: Denies: Chills, Fever Eyes: Denies: Visual changes - bilaterally ENT: Denies: Bilateral ear pain Cardiovascular: Denies: Chest pain, Palpitations Respiratory: Denies: Dyspnea, Cough Gastrointestinal: Denies: Abdominal pain, Nausea, Vomiting, Diarrhea Musculoskeletal: Reports: Extremity Pain. Denies: Swelling Skin: Reports: Wounds Neurological: Denies: Headache Allergy: Denies: Uticaria Physical Exam Vital Signs/Narrative: Vital Signs Temp Pulse Resp BP Pulse Ox 01/13/19 16:58 97 F L 93 19 H 162/95 H 97 Inital Vital Signs reviewed: Yes General: Well nourished, Well developed Head: Normocephalic ENT: Moist mucous membranes Neck: Supple Cardiovascular: Regular rate, Regular rhythm Respiratory: No distress, CTA bilaterally Abdomen: Soft, Nontender Back: Nontender Extremities: - - Tenderness palpation over the greater trochanter of the right hip. Patient has pain over this area when trying to elevate her leg. Minimal pain with logroll. She has diffuse tenderness throughout the right knee. There is tenderness over the medial left knee joint line. Good range of motion of both knees is noted. Skin: - - Patient has a healing hematoma to the left anterior lateral peralta. She has mild erythema over her chin but no focal abscess. Neurological: Alert, Oriented x3, Normal Strength, Normal Sensation Psychological: Normal affect Diagnostic/Tx/Re-eval Impressions Knee X-Ray 01/13/19 18:32 IMPRESSION: Tricompartmental arthrosis with chondrocalcinosis. Electronically Signed: Eulalio Pringle MD at 19:19 EST , Service support , Hip/Pelvis X-Ray 01/13/19 19:00 IMPRESSION: Replaced right hip free of complication Mild SI joint arthrosis No demonstrated fracture Electronically Signed: Eulalio Pringle MD at 19:19 EST , Service support , 01/13/19 18:31 Knee 4 or More Views [RAD] Stat 01/13/19 18:32 Knee 4 or More Views [RAD] Stat 01/13/19 19:00 HIP, UNI W/ Pelvis 2-3 Views [RAD] Stat - Medical Decision Making Patient was given 1 tab of Clarence here for pain. Test results are discussed with her. I believe she has tendinitis or strain along with inflammation of her arthritis. There is no acute bony injury. Patient will be given a course of doxycycline to cover her facial skin wounds. She will be given Clarence along with a 4-day course of prednisone. We will also place her on Prilosec for the next 5 days to help protect her stomach secondary to the steroid use. ED Disposition - Plan for ED Patient: Disposition: Home or Assisted Living Diagnosis: Arthritis, Hip strain Instructions: Hip Strain, Rheumatoid Arthritis Prescriptions: Prednisone [Deltasone] 40 mg PO DAILY #8 tablet Hydrocodone Bitart/Apap 5-325 [Clarence 5MG-325MG] 1 tablet PO Q6H PRN PRN 3 Days #10 tablet PRN Reason: Pain Omeprazole [Prilosec] 20 mg PO DAILY #5 capsule Referrals: Beatriz Subramanian MD [NON-STAFF] - Maria Del Carmen Case NP-C [Primary Care Provider] - As soon as possible
[2019-01-13] MEDS: HYDROcodone Bitartrate/Apap 5/325 Tablet PO (18:41)
--- NOTE | 2019-01-13 19:00 | RAD_ITS ---
STUDY: X-RAY - PELVIS AND RIGHT HIP REASON FOR EXAM: Female, 78 years old. Pain TECHNIQUE: 3 views of the pelvis and hip. COMPARISON: None. FINDINGS: There is a non-specific bowel gas pattern. IVC filter noted. Popcorn like calcifications in the pelvis likely represent involuted uterine fibroids There is mild degenerative osteoarthritic changes in the SI joints. Normal bilateral superior and inferior pubic rami. Normal pubic symphysis. Normal bilateral ischial tuberosities. Right hip has been previously replaced. Components demonstrate anatomic alignment. No plain film evidence of hardware complication, failure, or acute traumatic abnormality RAD/HIP, UNI W/ Pelvis 2-3 Views IMPRESSION: Replaced right hip free of complication Mild SI joint arthrosis No demonstrated fracture Electronically Signed: Eulalio Pringle MD at 19:19 EST , Service support ,
[2019-01-13 19:43] VITALS: BP 122/78; PULSE 76; RESP 17; O2SAT 97
== END 2019-01-13 20:20 | disposition home or self-care (01) ==
PROVIDERS: Emergency Provider Emergency Medicine; Family Provider Nurse Practitioner; PCP Nurse Practitioner
DX: S76.011A Strain of muscle, fascia and tendon of right hip, initial encounter (principal); M16.11 Unilateral primary osteoarthritis, right hip; Z87.891 Personal history of nicotine dependence; X58.XXXA Exposure to other specified factors, initial encounter; Y93.89 Activity, other specified; Y92.89 Other specified places as the place of occurrence of the external cause; Y99.8 Other external cause status
CPT/HCPCS: 73502; 73564; 99283

== ENCOUNTER → 2020-01-28 21:41 | Outpatient (CLI) | payer MEDICARE, OTHER, SELFPAY ==
[2020-01-28 17:21] VITALS: BMI 34.5
[2020-01-28 22:20] LABS: Absolute Lymphocyte Count 1.85 X10^3/uL (0.83-4.51); Absolute Neutrophil Count 3.1 X10^3/uL (2.0-7.7); Basophil# 0.01 X10^3/uL; Basophil% 0.2 % (0-1); Eosinophils% 1.8 % (0-5); Hemoglobin 12.7 g/dL (12.0-15.0); Lymphocyte # 1.85 X10^3/ul (4.0); Lymphocyte % 34.2 % (19-41); Mean Corp Hgb Conc 31.8 g/dL (32-36); Mean Corpuscular Volume 88.1 fL (81-99); Mean Platelet Vol. 10.3 fl (6.2-12.0); Monocyte# 0.39 X10^3/uL; Monocyte% 7.2 % (0-10); NRBC Flagged by Analyzer 0 % (0-5); Neutrophil # 3.05 X10^3/uL (2.7-7.7); Neutrophil % 56.4 % (47-70); Platelet Count 264 K/mm3 (150-450); RBC Distribution Width CV 13.3 % (11.6-14.6); RBC Distribution Width SD 43.3 fl (35.1-43.9); Red Blood Count 4.54 M/mm3 (4.2-5.4); White Blood Count 5.4 K/mm3 (4.4-11.0)
[2020-01-28 22:44] LABS: ALB/GLOB Ratio 1.1 RATIO (0.9-2.4); AST(SGOT) 17 U/L (15-37); Alanine Aminotransfer ALT/SGPT 22 U/L (13-56); Albumin, Serum 3.9 g/dL (3.2-5.0); Alkaline Phosphatase 97 U/L (45-117); Anion Gap 5 (5-15); BUN 18 mg/dL (7-18); BUN/Creat Ratio 20.5 RATIO (10-20); CRP < 2.90 mg/L (0.0-3.0); Chloride 104 mmol/L (98-107); Cholesterol 188 mg/dL (200); Creatinine, Serum 0.88 mg/dL (0.55-1.02); EST Glomerular Filtration Rate 66 mL/min (>60); Est Glom Filt Rate - Afr Amer 79 mL/min (>60); Globulin 3.6 g/dL (2.2-4.2); Glucose 132 mg/dL (74-106); High Density Lipoprotein 50 mg/dL; Potassium 3.9 mmol/L (3.5-5.1); Protein, Total 7.5 g/dL (6.4-8.2); Rheumatoid Factor < 10.0 IU/mL (<15); Sodium Level 138 mmol/L (136-145); Triglycerides 318 mg/dL; Uric Acid 6.5 mg/dL (2.6-6.0); Very Low Density Lipoprotein 64 mg/dL (5-40)
[2020-01-30 14:08] LABS: ANTINUCLEAR ANTIBODIES DIRECT Positive (Negative); Anti-Centromere B Ab <0.2 AI (0.0-0.9); Anti-Chromatin <0.2 AI (0.0-0.9); Anti-Jo <0.2 AI (0.0-0.9); Anti-Scleroderma-70 AB <0.2 AI (0.0-0.9); RNP Ab 3.5 AI (0.0-0.9); SJOGREN'S Anti-SS-A test < 0.2 AI (0.0-0.9); SJOGREN'S Anti-SS-B test < 0.2 AI (0.0-0.9); Smith Ab <0.2 AI (0.0-0.9)
[2020-01-30 16:44] LABS: Anti-dsDNA Ab <1 IU/mL (0-9)
== END ==
PROVIDERS: PCP Nurse Practitioner; Referring Provider Nurse Practitioner; Visit Provider Nurse Practitioner
DX: I10 Essential (primary) hypertension (principal); I48.0 Paroxysmal atrial fibrillation; M25.561 Pain in right knee; M25.562 Pain in left knee; M19.90 Unspecified osteoarthritis, unspecified site; E78.00 Pure hypercholesterolemia, unspecified; M10.9 Gout, unspecified
CPT/HCPCS: 80053; 80061; 84550; 85025; 86038; 86140; 86225; 86235; 86431

== ENCOUNTER → 2020-03-24 21:38 | Outpatient (CLI) | payer MEDICARE, OTHER, SELFPAY ==
[2020-03-24 15:14] VITALS: BMI 34.9
[2020-03-24 22:05] LABS: Uric Acid 4.6 mg/dL (2.6-6.0)
[2020-03-24 22:15] LABS: Hemoglobin A1c 6.9 % (3.8-5.6)
== END ==
PROVIDERS: PCP Nurse Practitioner; Referring Provider Nurse Practitioner; Visit Provider Nurse Practitioner
DX: M10.9 Gout, unspecified (principal); R73.9 Hyperglycemia, unspecified; N30.90 Cystitis, unspecified without hematuria
CPT/HCPCS: 83036; 84550; 87086; 87088

== ENCOUNTER 2020-08-15 16:10 | Observation (INO) | payer MEDICARE, SELFPAY ==
[2020-06-08 16:51] VITALS: BMI 34.5
[2020-08-15] VITALS (20 sets, daily range): BP systolic 107–167; BP diastolic 69–108; PULSE 61–159; RESP 18–24; TEMP 36.3–37.1; O2SAT 96–100; BMI 34.0; BMI 33.5
--- NOTE | 2020-08-15 16:21 | EKG12_ITS ---
Test Reason : SOB Blood Pressure : / mmHG Vent. Rate : 165 BPM Atrial Rate : 170 BPM P-R Int : 000 ms QRS Dur : 066 ms QT Int : 282 ms P-R-T Axes : 000 009 -19 degrees QTc Int : 467 ms Atrial fibrillation with rapid ventricular response Cannot rule out Inferior infarct , age undetermined Abnormal ECG Confirmed by DAYANNA MOORE, ALLIE ([id number]), health editor GERRY VILLAREAL ([id number]) on 08/17/2020 10:17:11 AM Referred By: ROEL Confirmed By:ALLIE ALAN MD
[2020-08-15] MEDS: dilTIAZem 25 MG/5 ML Vial IV BOLUS (16:23)
--- NOTE | 2020-08-15 16:23 | ED.VIS.DYS ---
HPI History of Present Illness Chief Complaint: Shortness of Breath Informant: patient Onset/Context/Timing Onset: Days Context: gradual Timing: Continuous Quality: Positive for Dyspnea on exertion Current Severity: Mild Maximum Severity: Mild Associated Symptoms Negative for cough, sore throat or green sputum Narrative Narrative: 80-year-old female history of A. fib on Eliquis. Also history of diabetes and hypertension. States the last 3 days she is just felt weak, tired and short of breath. She denies any fever or chills. She denies any cough. No significant chest pain. Does feel like her heart rate is racing. Today she went out to eat with family and felt so poorly she thought she needed to come in to be evaluated. She denies any nausea, vomiting or melena. PE Risk Factors: Negative for Cancer, OCP + Smoking + > 35, Prior DVT or PE, Recent immobilization, Recent surgery and Recent travel Prior similar symptoms: Yes Recent Illness/Hospitalization: No PFSH PFSH Medical History Arthritis Atrial fibrillation Back pain Cystitis without hematuria Diabetes type 2, uncontrolled Essential hypertension Fatigue Fibromyalgia Gout Knee pain Paroxysmal atrial fibrillation Pure hypercholesterolemia Rash of face Rheumatoid arthritis Submental mass Home Medications allopurinol 100 mg tablet 100 mg PO BID #180 tab 04/08/20 [Rx Last Taken Unknown] metformin 500 mg tablet 500 mg PO BID #180 tab 04/08/20 [Rx Last Taken Unknown] apixaban 5 mg tablet 5 mg PO BID #180 tab 06/08/20 [Rx Last Taken Unknown] duloxetine 60 mg capsule,delayed release 60 mg PO DAILY #90 cap 06/08/20 [Rx Last Taken Unknown] flecainide 50 mg tablet 50 mg PO BID #180 tab 06/08/20 [Rx Last Taken Unknown] metoprolol tartrate 25 mg tablet 25 mg PO BID #180 tab 06/08/20 [Rx Last Taken Unknown] potassium chloride 10 mEq tablet,extended release(part/cryst) 10 meq PO DAILY #90 tab 06/08/20 [Rx Last Taken Unknown] Allergy/AdvReac Type Severity Reaction Status Date / Time Sulfa (Sulfonamide Allergy Severe rash Verified 08/15/20 16:12 Antibiotics) lisinopril AdvReac Severe cough Verified 08/15/20 16:12 pine tree Allergy Unknown Uncoded 08/15/20 16:12 some metals Allergy Unknown Uncoded 08/15/20 16:12 Family History Father Heart disease Mother Heart disease Rheumatoid arthritis Sister No problems noted. Other CHF (congestive heart failure) Surgical History History of ankle surgery History of appendectomy History of bilateral hip replacements History of tonsillectomy Hx of foot surgery Social History Smoking Status: Never smoker alcohol intake: never caffeine: Yes Type: coffee Number of servings: 1 ROS ROS ED ROS Narrative She denies any recent illness. Review of Systems ROS Unobtainable: Denies due to encephalopathy Constitutional Constitutional ED: Denies chills or fever(s) Eyes Eyes: Denies change in vision ENT ENT ED: Denies ear pain or sore throat Cardiovascular Cardiovascular: Reports chest pain, palpitations and racing heartbeat Respiratory/Chest Respiratory/Chest: Reports dyspnea and dyspnea on exertion; Denies cough Gastrointestinal Gastrointestinal: Denies abdominal pain, diarrhea, melena, nausea or vomiting Genitourinary Genitourinary ED: Denies dysuria Musculoskeletal Musculoskeletal: Denies myalgias Integumentary Denies rash Neurologic Neurologic: Denies headache(s) Psychiatric Psychiatric: Denies depression Endocrine Endocrinology: Denies polyuria Hematologic/Lymphatic Hematologic/Lymphatic: Denies easy bruising Allergic/Immunologic Allergic/Immunologic ED: Denies urticaria EXAM Physical Exam Narrative Exam Narrative: Older female vital signs are stable but she does have A. fib RVR with a heart rate in the monitor around 160. She does not look septic or toxic. Her pulse ox is 97% with no hypoxia. HEENT exam unremarkable. Lungs clear to auscultation bilaterally. Heart irregularly irregular tachycardic consistent with A. fib RVR again rate around 165. Abdomen soft nontender. Moving all 4 extremities. No edema. Calves are nontender. Neurologically she is awake and alert with no focal motor deficits. Const Vital Signs: 08/15/20 16:10 08/15/20 16:18 08/15/20 16:31 Temperature 98.3 F Temperature Source Temporal Pulse Rate 159 H Respiratory Rate 22 H Respiratory Effort Short of Breath Blood Pressure 167/98 H Blood Pressure Mean 121 Pulse Ox 97 100 Oxygen Delivery Method Room Air Room Air Nasal Cannula Oxygen Flow Rate (L/min) 2 08/15/20 17:16 Temperature Temperature Source Pulse Rate 109 H Respiratory Rate 19 H Respiratory Effort Blood Pressure Blood Pressure Mean Pulse Ox 96 Oxygen Delivery Method Room Air Oxygen Flow Rate (L/min) HEENT Reports moist mucous membranes atraumatic; Negative for trauma or tenderness Eyes PERRL and EOMs intact bilaterally Neck no lymphadenopathy, supple, no meningeal signs and no JVD General: Negative for tenderness Resp normal respiratory effort and clear to auscultation bilaterally Cardio Cardio Narrative: A. fib RVR around 160. Rate: tachycardic GI non-tender, non-distended and no masses Auscultation: normoactive bowel sounds Palpation: soft; Negative for tender Back/Spine no CVA tenderness and normal to inspection Extremity normal to inspection General Extremety ED: Negative for edema or tenderness General Extremity: Negative for edema Neuro oriented x3 Sensorium / Orientation: alert, oriented to person, oriented to place and oriented to time; Negative for orientation impaired Psych mental status grossly normal Skin Rashes: no rashes MDM MDM MDM Narrative Medical decision making narrative: 80-year-old female has not felt well last several days. Has extensive past medical history. Does have a history of A. fib and is currently on the blood thinner Eliquis. Presents with A. fib RVR. She undergo cardiac work-up. She will be treated with IV Cardizem to try to get her rate under control. Lab Data Lab results narrative: CBC unremarkable white count of 6. Hemoglobin 13. Portable chest x-ray 1 view shows no acute abnormality. Interpreted by myself. Normal cardiac silhouette mediastinum. Normal lung castaneda. Chronic changes. BMP normal. Normal gap. Normal creatinine. Troponin normal. Patient responded well to her initial Cardizem bolus. However her heart rate is starting to again increase and she is between 90-125. She remains in A. fib. She denies discussed treatment plan she is comfortable for admission. I will start her on a Cardizem drip and I have the hospitalist on page. Labs: Laboratory Results - last 24 hr 08/15/20 08/15/20 16:25 16:25 WBC 6.2 RBC 4.65 Hgb 13.3 Hct 40.5 MCV 87.1 MCH 28.6 MCHC 32.8 RDW Std Deviation 43.8 RDW Coeff of Edelmira 13.8 Plt Count 244 MPV 9.9 Immature Gran % (Auto) 0.200 Neut % (Auto) 59.0 Lymph % (Auto) 32.0 Bertie % (Auto) 7.0 Eos % (Auto) 1.5 Baso % (Auto) 0.3 Absolute Neuts (auto) 3.7 Absolute Lymphs (auto) 1.98 Nucleated RBC % 0 Sodium 142 Potassium 3.6 Chloride 108 H Carbon Dioxide 25.0 Anion Gap 9 BUN 20 H Creatinine 0.94 Estim Creat Clear Calc 34.82 Est GFR (MDRD) Af Amer 73 Est GFR (MDRD) Non-Af 61 BUN/Creatinine Ratio 21.3 H Glucose 186 H Calcium 9.2 Troponin I < 0.015 Radiography Chest X-Ray - ED: 1 View, Read by ED Physician, Heart, Lungs, Mediastinum, Bony Structures, No Acute Disease and Chronic Changes Diagnostic Testing: Radiology Impression Chest X-Ray 08/15/20 16:45 IMPRESSION: Stable, nonacute portable x-ray examination of the chest. Electronically Signed: Chris Talley MD (Brooks) at 16:58 EDT , Service support , Rhythm Strip Rhythm Strip: A-fib Rate: 165 EKG Initial EKG: Attestation: I personally reviewed and interpreted this EKG as follows: Interpretation: Atrial Fibrillation Comments: A. fib RVR rate of 165. No change from prior EKG from 2018 which also showed A. fib. Prior: Unchanged Discharge Plan Triage Chief Complaint: Shortness of Breath ED Provider: Mauri Wilson Dx/Rx/DC Orders Clinical Impression: Atrial fibrillation with rapid ventricular response Prescriptions: No Action apixaban 5 mg tablet 5 mg PO BID Qty: 180 RF: 3 metoprolol tartrate 25 mg tablet 25 mg PO BID Qty: 180 RF: 2 flecainide 50 mg tablet 50 mg tablet 50 mg PO BID Qty: 180 RF: 2 duloxetine 60 mg capsule,delayed release(DR/EC) 60 mg PO DAILY Qty: 90 RF: 2 potassium chloride 10 mEq tablet,ER particles/crystals 10 meq PO DAILY Qty: 90 RF: 3 metformin 500 mg tablet 500 mg PO BID Qty: 180 RF: 3 allopurinol 100 mg tablet 100 mg PO BID Qty: 180 RF: 3 Primary Care Provider: Maria Del Carmen Case NP Referrals: Maria Del Carmen Case NP, [facility] [Primary Care Provider] - Disposition Disposition: Acute Care Hospital [facility]
[2020-08-15 16:29] LABS: Absolute Lymphocyte Count 1.98 X10^3/uL (0.83-4.51); Absolute Neutrophil Count 3.7 X10^3/uL (2.0-7.7); Basophil# 0.02 X10^3/uL; Basophil% 0.3 % (0-1); Eosinophil# 0.09 X10^3/uL; Eosinophils% 1.5 % (0-5); Hematocrit 40.5 % (37-47); Hemoglobin 13.3 g/dL (12.0-15.0); Lymphocyte # 1.98 X10^3/ul (0.83-4.51); Mean Corp Hgb Conc 32.8 g/dL (32-36); Mean Corpuscular Hgb 28.6 pg (27.0-32.0); Mean Corpuscular Volume 87.1 fL (81-99); Mean Platelet Vol. 9.9 fl (6.2-12.0); Monocyte# 0.43 X10^3/uL; NRBC Flagged by Analyzer 0 % (0-5); Neutrophil # 3.65 X10^3/uL (2.7-7.7); Platelet Count 244 K/mm3 (150-450); RBC Distribution Width CV 13.8 % (11.6-14.6); RBC Distribution Width SD 43.8 fl (35.1-43.9); Red Blood Count 4.65 M/mm3 (4.2-5.4); White Blood Count 6.2 K/mm3 (4.4-11.0)
--- NOTE | 2020-08-15 16:45 | RAD_ITS ---
STUDY: X-RAY CHEST REASON FOR EXAM: Female, 80 years old. chest pain, sob, headache, high blood sugar, hypertension. TECHNIQUE: AP COMPARISON: 06/15/2017 FINDINGS: EKG leads project over the chest. The lungs are clear and expanded. There is no demonstrated pleural abnormality. Normal size heart. Normal mediastinum and vickie. Normal visualized pulmonary arteries. There is atherosclerotic tortuosity of the aortic arch and descending thoracic aorta. No acute bony process. There is no demonstrated abnormality of the visualized soft tissue structures of the upper abdomen. RAD/Chest 1 View (Portable) IMPRESSION: Stable, nonacute portable x-ray examination of the chest. Electronically Signed: Chris Talley MD (Brooks) at 16:58 EDT , Service support ,
[2020-08-15 17:02] LABS: Anion Gap 9 (5-15); BUN 20 mg/dL (7-18); BUN/Creat Ratio 21.3 RATIO (10-20); Calcium,Total 9.2 mg/dL (8.5-10.1); Chloride 108 mmol/L (98-107); Creatinine, Serum 0.94 mg/dL (0.55-1.02); EST Glomerular Filtration Rate 61 mL/min (>60); Est Glom Filt Rate - Afr Amer 73 mL/min (>60); Estimated Creatinine Clearance 34.82 ml/min; Glucose 186 mg/dL (74-106); Potassium 3.6 mmol/L (3.5-5.1); Sodium Level 142 mmol/L (136-145)
--- NOTE | 2020-08-15 17:18 | EKG12_ITS ---
Test Reason : REPEAT Blood Pressure : / mmHG Vent. Rate : 092 BPM Atrial Rate : 091 BPM P-R Int : 000 ms QRS Dur : 072 ms QT Int : 350 ms P-R-T Axes : 000 -02 016 degrees QTc Int : 432 ms Atrial fibrillation Inferior infarct , age undetermined , cannot be excluded Abnormal ECG Confirmed by DAYANNA MOORE, ALLIE ([id number]), legal editor GERRY VILLAREAL ([id number]) on 08/17/2020 10:17:33 AM Referred By: ROEL Confirmed By:ALLIE ALAN MD
--- NOTE | 2020-08-15 18:31 | HP.PCM.HOS_ITS ---
HPI - General HPI Narrative BALWINDER ORELLANA, is a 80 F who presented to the emergency department [facility] on 08/15/2020 with a chief complaint of shortness of breath. Per discussion with the patient she has been feeling poorly over the last 3 days with significant fatigue, shortness of breath, and weakness. She states she has been working outside pretty extensively planting over the last 3 days and feels that her symptoms may be related to this. Upon presentation to the emergency department she was noted to be in A. fib with RVR with a heart rate of 160. She has a known history of atrial fibrillation and has been cardioverted in the past. She is currently taking flecainide, metoprolol 25 mg twice daily, and E liquis 5 mg twice daily for the treatment of her atrial fibrillation. Her last echocardiogram was done in 2018 and was relatively normal. She follows with Dr. Peres as an outpatient. She was initiated on a Cardizem drip in the emergency department with improved heart rate control but her heart rate maintained in the 90s to 120 region. A DCC was considered but the patient had just eaten and was contraindicated given her recent oral intake. The decision was made for admission for continued Cardizem drip and consideration for cardioversion in the morning. Her vital signs were otherwise stable. She was satting 97 to 100% on room air. Her labs show a normal CBC. Her BMP had no marked abnormalities either except for an elevated glucose of 186. Patient is a known diabetic. Her initial troponin was less than 0.015. Her EKGs were reviewed and showed no signs of ischemia but did show A. fib with RVR. Her initial EKG showed a rate in the 160s and her repeat EKG showed a rate at 92. The patient currently lives alone and has no next of kin nearby. Of note her PCP is currently working her up for lupus and she was noted to have a positive SKIP. She will be admitted to PCU for continued care. [facility] Medical History Arthritis Atrial fibrillation Back pain Cystitis without hematuria Diabetes type 2, uncontrolled Essential hypertension Fatigue Fibromyalgia Gout Knee pain Paroxysmal atrial fibrillation Pure hypercholesterolemia Rash of face Rheumatoid arthritis Submental mass Home Medications allopurinol 100 mg tablet 100 mg PO BID #180 tab 04/08/20 [Rx Last Taken Unknown] metformin 500 mg tablet 500 mg PO BID #180 tab 04/08/20 [Rx Last Taken Unknown] apixaban 5 mg tablet 5 mg PO BID #180 tab 06/08/20 [Rx Last Taken Unknown] duloxetine 60 mg capsule,delayed release 60 mg PO DAILY #90 cap 06/08/20 [Rx Last Taken Unknown] flecainide 50 mg tablet 50 mg PO BID #180 tab 06/08/20 [Rx Last Taken Unknown] metoprolol tartrate 25 mg tablet 25 mg PO BID #180 tab 06/08/20 [Rx Last Taken Unknown] potassium chloride 10 mEq tablet,extended release(part/cryst) 10 meq PO DAILY #90 tab 06/08/20 [Rx Last Taken Unknown] Allergy/AdvReac Type Severity Reaction Status Date / Time Sulfa (Sulfonamide Allergy Severe rash Verified 08/15/20 16:12 Antibiotics) lisinopril AdvReac Severe cough Verified 08/15/20 16:12 pine tree Allergy Unknown Uncoded 08/15/20 16:12 some metals Allergy Unknown Uncoded 08/15/20 16:12 Family History Father Heart disease Mother Heart disease Rheumatoid arthritis Sister No problems noted. Other CHF (congestive heart failure) Surgical History History of ankle surgery History of appendectomy History of bilateral hip replacements History of tonsillectomy Hx of foot surgery Social History (Updated 08/15/20 @ 18:[address] Regine Sandoval DO) Smoking Status: Never smoker alcohol intake: never substance use type: does not use caffeine: Yes Type: coffee Number of servings: 1 ROS Constitutional Constitutional: Reports change in weight, fatigue, weakness and other Details: Patient reports significant weight gain in the last year ; Denies anorexia, chills, fever(s), malaise or night sweats Eyes Eyes: Denies blurry vision, change in eye color, change in vision, discharge from eye(s), double vision, erythema, eye pain, loss of vision or other ENT HEENT: Denies abnormal hearing, dysphagia, ear pain, epistaxis, headache(s), hearing loss, nasal congestion, nasal discharge, post nasal drip, sinus pressure, sore throat or other Cardiovascular Cardiovascular: Reports dyspnea on exertion, palpitations and rapid heart rate; Denies chest pain, claudication, edema, lightheadedness, orthopnea, paroxysmal nocturnal dyspnea, syncope or other Respiratory/Chest Respiratory/Chest: Denies cough, dyspnea, excessive phlegm production, hemoptysis, productive cough, shortness of breath at rest, shortness of breath with exertion, wheezing or other Gastrointestinal Gastrointestinal: Denies abdominal pain, coffee ground emesis, constipation, diarrhea, dyspepsia, hematemesis, hematochezia, loose stools, melena, nausea, vomiting or other Genitourinary Genitourinary: Reports urinary incontinence; Denies burning urination, difficulty urinating, dysuria, hematuria, nocturia, urinary frequency, urinary hesitancy, urinary urgency or other Musculoskeletal Musculoskeletal: Reports arthralgias, joint pain, joint stiffness and myalgias; Denies back pain, joint swelling or neck pain Neurologic Neurologic: Reports abnormal gait, numbness, paresthesias and tingling; Denies abnormal speech, confusion, disequilibrium, dizziness, focal weakness, headache(s), seizure-like activity, seizures, syncope or tremor(s) Psychiatric Psychiatric: Reports anxiety; Denies depression, homicidal ideation or suicidal ideation Endocrine Endocrinology: Denies change in body appearance, cold intolerance, excessive sweating, heat intolerance, polydipsia, polyuria or other Hematologic/Lymphatic Hematologic/Lymphatic: Denies anemia, easy bleeding, easy bruising or lymphadenopathy Allergic/Immunologic Allergic/Immunologic: Denies rhinitis, hives, eczemia or asthma Vital Signs Vital Signs Vital Signs: 08/15/20 16:10 08/15/20 16:18 08/15/20 16:31 Temperature 98.3 F Temperature Source Temporal Pulse Rate 159 H Respiratory Rate 22 H Respiratory Effort Short of Breath Blood Pressure 167/98 H Blood Pressure Mean 121 Pulse Ox 97 100 Oxygen Delivery Method Room Air Room Air Nasal Cannula Oxygen Flow Rate (L/min) 2 08/15/20 17:16 08/15/20 17:53 Temperature Temperature Source Pulse Rate 109 H 105 H Respiratory Rate 19 H 18 Respiratory Effort Blood Pressure 107/69 Blood Pressure Mean 81 Pulse Ox 96 98 Oxygen Delivery Method Room Air Nasal Cannula Oxygen Flow Rate (L/min) 2 Weight Weight: 81.647 kg Body Mass Index (BMI) 34.0 Physical Exam Const alert, oriented x3 and no apparent distress Constitutional Narrative: Older obese white female sitting up in bed, appears comfortable, nontoxic, slightly anxious General Appearance: cooperative HEENT normocephalic, head/scalp atraumatic, moist oral mucous membranes and oropharynx normal; Negative for hearing grossly normal bilaterally HEENT Narrative: [place]-wears hearing aids, Mallampati 2-3, no thrush Mouth: oral and palatal mucosa normal Eyes PERRL, EOMs intact bilaterally and conjunctivae normal Neck no lymphadenopathy, supple, no JVD and no carotid bruits Neck Narrative: Trachea midline, thyroid of normal size with no nodules Resp normal respiratory effort, no retractions, no use of accessory muscles and clear to auscultation bilaterally Cardio S1 normal heart sound, S2 normal heart sound, no murmurs, no rub, no gallops, no clicks and no JVD Cardio Narrative: Rapid rate with irregular rhythm GI normal to inspection, nondistended, normoactive bowel sounds, soft to palpation, non-tender and non-distended; Negative for hepatosplenomegaly Extremity normal to inspection and no clubbing, cyanosis or edema Peripheral Pulses: Yes pulses 2+ throughout Skin no rashes or lesions noted, skin turgor normal, no jaundice, no petechiae and no mottling Skin Narrative: Healing scratch left side of face-patient states she was cut by a tree while working outside Neuro oriented x3, CN's II-XII intact bilaterally, moves all extremities and no focal motor deficits Sensorium / Orientation: awake, alert, oriented to person, oriented to place and oriented to time Speech: speech normal Psych affect normal Psych Narrative: Speech was somewhat rapid and patient seemed slightly anxious Mood & Affect: anxious; Negative for depressed Results Lab / Micro Data Attestation: I reviewed the patient's lab results. Result Diagrams: 08/15/20 16:25 08/15/20 16:25 Labs: Laboratory Results - last 24 hr 08/15/20 08/15/20 16:25 16:25 WBC 6.2 RBC 4.65 Hgb 13.3 Hct 40.5 MCV 87.1 MCH 28.6 MCHC 32.8 RDW Std Deviation 43.8 RDW Coeff of Edelm[place] 13.8 Plt Count 244 MPV 9.9 Immature Gran % (Auto) 0.200 Neut % (Auto) 59.0 Lymph % (Auto) 32.0 Alpine % (Auto) 7.0 Eos % (Auto) 1.5 Baso % (Auto) 0.3 Absolute Neuts (auto) 3.7 Absolute Lymphs (auto) 1.98 Nucleated RBC % 0 Sodium 142 Potassium 3.6 Chloride 108 H Carbon Dioxide 25.0 Anion Gap 9 BUN 20 H Creatinine 0.94 Estim Creat Clear Calc 34.82 Est GFR (MDRD) Af Amer 73 Est GFR (MDRD) Non-Af 61 BUN/Creatinine Ratio 21.3 H Glucose 186 H Calcium 9.2 Troponin I < 0.015 Rhythm Strip Rhythm Strip: A-fib Rate: 165 Radiology Impression Chest X-Ray 08/15/20 16:45 IMPRESSION: Stable, nonacute portable x-ray examination of the chest. Electronically Signed: Chris Talley MD (Brooks) at 16:58 EDT , Service support , Assessment & Plan Assessment/Plan (1) Atrial fibrillation with rapid ventricular response: (2) Paroxysmal atrial fibrillation: PLAN: Atrial fibrillation with RVR -Patient has required cardioversion in the past -Would consider cardioversion in a.m. if patient remains in A. fib as she has been consistently anticoagulated on Eliquis -Will make n.p.o. after midnight -Continue flecainide and metoprolol -Cardizem drip -Check TSH -Repeat a.m. labs with magnesium and phosphorus -Check echo -Last echocardiogram was in 2017 and showed an EF of 65%, no atrial abnormalities, no valvular abnormalities -Consult Dr. Peres--> patient follows as an outpatient for cardiology with h im PAF -See above DM-2--> controlled -Last hemoglobin A1c was in March 2020--> 6.9 -Hold home Metformin -Moderate dose SSI -Accu-Cheks before meals and at bedtime Hypertension -Continue metoprolol History of gout -No current signs of active disease -Continue allopurinol Diabetic neuropathy -Patient states she was recently diagnosed with Charcot foot and diabetic neuropathy -Cymbalta was initiated for this recently -Continue Cymbalta -Continue outpatient work-up Elevated SKIP -Outpatient work-up is in progress per PCP DVT prophylaxis -Continue apixaban CODE STATUS -DNR CCA no intubation per discussion with patient emergency department Charges/Coding Visit Charges Inpatient E&M: 75613 Init Hosp L2
[2020-08-15] MEDS: Acetaminophen 325 MG Tablet 650 MG PO (19:42)
[2020-08-15] MEDS: Flecainide 100 MG Tablet 50 MG PO (22:19)
[2020-08-15] MEDS: APIXABAN 5 MG TABLET PO (22:20)
[2020-08-15] MEDS: Metoprolol Tartrate 25 MG Tablet PO (22:20)
[2020-08-15 22:46] LABS: Bedside Glucose 156 mg/dL (70-110)
--- NOTE | 2020-08-15 23:41 | EKG12_ITS ---
Test Reason : AFIB TO NSR Blood Pressure : / mmHG Vent. Rate : 052 BPM Atrial Rate : 052 BPM P-R Int : 164 ms QRS Dur : 072 ms QT Int : 458 ms P-R-T Axes : -14 -07 028 degrees QTc Int : 425 ms Sinus bradycardia Inferior infarct , age undetermined , cannot be excluded Abnormal ECG Confirmed by DAYANNA MOORE, ALLIE ([id number]), offline editor GERRY VILLAREAL ([id number]) on 08/17/2020 10:27:00 AM Referred By: DR OLSON Confirmed By:ALLIE ALAN MD
[2020-08-15] MEDS: MELATONIN 3 MG TABLET PO (23:47)
[2020-08-16] VITALS (14 sets, daily range): BP systolic 118–148; BP diastolic 65–82; PULSE 55–75; RESP 15–26; TEMP 36.6–36.7; O2SAT 95–97
[2020-08-16] MEDS: Metoprolol Tartrate 25 MG Tablet PO (00:50)
[2020-08-16] MEDS: Acetaminophen 325 MG Tablet 650 MG PO (03:01)
--- NOTE | 2020-08-16 05:55 | ECHOD_ITS ---
Reason For Study: Afib, Aflutter Procedure This was a 2D Doppler, Color Flow transthoracic echocardiogram. The study was technically difficult. Exam performed portable in patient room. Left Ventricle Normal LV size. Left ventricular systolic function is normal. The estimated ejection fraction is 65 %. Transmitral diastolic flow velocities suggest moderate (stage 2) diastolic dysfunction (pseudonormal pattern). No regional wall motion abnormalities noted. Right Ventricle Normal RV size. Normal systolic function. Atria The left atrium is mildly enlarged. Normal right atrium. Lipomatous hypertrophy of the atrial septum. Mitral Valve There is mild mitral annular calcification. Normal mitral valve. Trivial mitral valve insufficiency. Tricuspid Valve Normal tricuspid valve. Trivial tricuspid valve insufficiency. Right ventricular systolic pressure estimated to be 45 mmHg. Aortic Valve Trisinus/trileaflet aortic valve. Mild diffuse aortic valve thickening. Mild focal aortic valve calcification. Trivial aortic valve insufficiency. Pulmonic Valve The pulmonic valve is not well visualized. Trivial pulmonic valve insufficiency. Great Vessels Normal sized aortic root. Pericardium/Pleural No pericardial effusion. MMode/2D Measurements & Calculations LVIDd: 4.8 cm IVSd: 1.3 cm Ao root diam: 3.2 cm LVIDs: 3.4 cm LVPWd: 1.3 cm RVDd: 3.2 cm FS: 30.2 % LAV(MOD-bp): 66.0 ml LVAd ap4: 22.7 cm2 SV(MOD-sp4): 36.6 ml LAV(MOD-bp) Indexed: 35.9 ml/m2 LVLd ap4: 7.4 cm LAV(MOD-sp2): 62.8 ml EDV(MOD-sp4): 56.8 ml LAV(MOD-sp4): 63.5 ml EDV(sp4-el): 59.0 ml LVAs ap4: 10.8 cm2 LVLs ap4: 5.1 cm ESV(MOD-sp4): 20.2 ml ESV(sp4-el): 19.4 ml EF(MOD-sp4): 64.4 % EF(sp4-el): 67.2 % SV(sp4-el): 39.6 ml LA A4 area: 20.2 cm2 LA dimension(2D): 3.9 cm RA A4 area: 10.3 cm2 Doppler Measurements & Calculations MV E max bridger: 113.8 cm/sec Lat Peak E' Bridger: 7.6 cm/sec Med Peak E' Bridger: 4.9 cm/sec MV A max bridger: 99.8 cm/sec E/E' lat: 15.1 E/E' med: 23.2 MV E/A: 1.1 Ao V2 max: 174.4 cm/sec LV V1 max: 107.4 cm/sec PA V2 max: 64.9 cm/sec Ao max P.2 mmHg LV V1 max P.6 mmHg Ao V2 mean: 122.0 cm/sec Ao mean P.5 mmHg Ao V2 VTI: 39.8 cm TR max bridger: 323.1 cm/sec TR max P.8 mmHg ECHO/Echo Complete Interpretation Summary The study was technically difficult. Left ventricular systolic function is normal. The estimated ejection fraction is 65 %. The left atrium is mildly enlarged. There is mild mitral annular calcification. Trivial mitral valve insufficiency. Trivial tricuspid valve insufficiency. Mild diffuse aortic valve thickening. Mild focal aortic valve calcification. Trivial aortic valve insufficiency. Trivial pulmonic valve insufficiency. Right ventricular systolic pressure estimated to be 45 mmHg. Transmitral diastolic flow velocities suggest diastolic dysfunction (pseudonorm al pattern). Transmitral diastolic flow velocities suggest moderate (stage 2) diastolic dysf unction (pseudonormal pattern). Ordering Physician: Regine Sandoval Referring Physician: Maria Del Carmen Case Performed By: Cristine Gunn, MILLA, RVT
[2020-08-16 06:29] LABS: Absolute Lymphocyte Count 1.68 X10^3/uL (0.83-4.51); Basophil# 0.03 X10^3/uL; Basophil% 0.7 % (0-1); Eosinophil# 0.12 X10^3/uL; Eosinophils% 2.9 % (0-5); Hematocrit 37.9 % (37-47); Hemoglobin 11.9 g/dL (12.0-15.0); Lymphocyte # 1.68 X10^3/ul (0.83-4.51); Lymphocyte % 40.2 % (19-41); Mean Corp Hgb Conc 31.4 g/dL (32-36); Mean Corpuscular Hgb 28.1 pg (27.0-32.0); Mean Corpuscular Volume 89.6 fL (81-99); Mean Platelet Vol. 9.9 fl (6.2-12.0); Monocyte# 0.38 X10^3/uL; Monocyte% 9.1 % (0-10); NRBC Flagged by Analyzer 0 % (0-5); Neutrophil # 1.96 X10^3/uL (2.7-7.7); Neutrophil % 46.9 % (47-70); Platelet Count 207 K/mm3 (150-450); RBC Distribution Width CV 13.9 % (11.6-14.6); RBC Distribution Width SD 45.1 fl (35.1-43.9); Red Blood Count 4.23 M/mm3 (4.2-5.4); White Blood Count 4.2 K/mm3 (4.4-11.0)
[2020-08-16] MEDS: 0.9% Saline Lock 10 ML Syringe IV (06:49)
--- NOTE | 2020-08-16 06:50 | EKG12_ITS ---
Test Reason : Blood Pressure : / mmHG Vent. Rate : 066 BPM Atrial Rate : 066 BPM P-R Int : 188 ms QRS Dur : 082 ms QT Int : 432 ms P-R-T Axes : -06 000 025 degrees QTc Int : 452 ms Normal sinus rhythm Normal ECG Confirmed by DAYANNA MOORE, ALLIE ([id number]), video editor GERRY VILLAREAL ([id number]) on 08/17/2020 10:43:46 AM Referred By: ROSIBEL Confirmed By:ALLIE ALAN MD
[2020-08-16 07:00] LABS: Bedside Glucose 123 mg/dL (70-110)
[2020-08-16 07:01] LABS: AST(SGOT) 16 U/L (15-37); Alanine Aminotransfer ALT/SGPT 19 U/L (13-56); Albumin, Serum 3.3 g/dL (3.2-5.0); Alkaline Phosphatase 70 U/L (45-117); Anion Gap 5 (5-15); BUN 15 mg/dL (7-18); BUN/Creat Ratio 20.7 RATIO (10-20); Calcium,Total 8.3 mg/dL (8.5-10.1); Chloride 109 mmol/L (98-107); Creatinine, Serum 0.72 mg/dL (0.55-1.02); EST Glomerular Filtration Rate 82 mL/min (>60); Est Glom Filt Rate - Afr Amer 99 mL/min (>60); Globulin 3.3 g/dL (2.2-4.2); Glucose 128 mg/dL (74-106); Magnesium 1.9 mg/dL (1.6-2.6); Phosphorus 4.2 mg/dL (2.5-4.9); Potassium 3.8 mmol/L (3.5-5.1); Protein, Total 6.6 g/dL (6.4-8.2); Sodium Level 141 mmol/L (136-145)
[2020-08-16] MEDS: Potassium Chloride Oral Tablet 10 MEQ PO (09:41)
[2020-08-16] MEDS: Allopurinol 100 MG Tablet PO (09:41)
[2020-08-16] MEDS: Flecainide 100 MG Tablet 50 MG PO (09:41)
[2020-08-16] MEDS: APIXABAN 5 MG TABLET PO (09:41)
[2020-08-16] MEDS: DULoxetine Hcl 60 MG Capsule PO (09:41)
[2020-08-16] MEDS: Metoprolol Tartrate 50 MG Tablet PO (09:42)
--- NOTE | 2020-08-16 11:18 | DCINST_ITS ---
Discharge Instructions Diet Discharge Diet: No restrictions Activity Discharge Activity: Return to Normal Activity Dressing / Incision Call your doctor if you observe: Shortness of breath, Dizziness, Chest pain and Increased palpitations (irregular heartbeat) Follow Up Care Test Results: Test results from this visit will be discussed in further detail at your follow-up appointment, if applicable. Discharge Plan Admission Admit Date/Time: 08/15/20 18:17 Primary Reason for Your Visit: Atrial fibrillation with RVR Attending Provider: Angelica Meza Primary Care Provider: Maria Del Carmen Case NP Discharge Orders/Prescriptions Prescriptions: New metoprolol tartrate 50 mg Tablet 50 mg PO BID Qty: 60 RF: 0 Continued apixaban 5 mg tablet 5 mg PO BID Qty: 180 RF: 3 flecainide 50 mg tablet 50 mg tablet 50 mg PO BID Qty: 180 RF: 2 duloxetine 60 mg capsule,delayed release(DR/EC) 60 mg PO DAILY Qty: 90 RF: 2 potassium chloride 10 mEq tablet,ER particles/crystals 10 meq PO DAILY Qty: 90 RF: 3 metformin 500 mg tablet 500 mg PO BID Qty: 180 RF: 3 allopurinol 100 mg tablet 100 mg PO BID Qty: 180 RF: 3 Discontinued metoprolol tartrate 25 mg tablet 25 mg PO BID Qty: 180 RF: 2 Referrals / Follow Up: Maria Del Carmen Case NP, [employer] [Primary Care Provider] - In 1 Week Joselyn Wilcox PA [PHYSICIAN LABELING STRATEGIST] - Within 2 Weeks Disposition Disposition (needs filled in before D/C Order can be placed): Home, self care
--- NOTE | 2020-08-16 11:22 | PCM.DC.SUM ---
Documented by User: Shy Neal NP, DRUG CLERK-C 08/16/20 11:35 Providers Date of Admission: 08/15/20 Date of Discharge: 08/16/20 Primary Care Physician: ROBYN Sanchez Reason For Visit: AFIB WITH RVR Diagnosis Discharge Diagnosis (1) Atrial fibrillation with rapid ventricular response: Status: Acute Code(s): I48.91 - Unspecified atrial fibrillation (2) Paroxysmal atrial fibrillation: Status: Acute Code(s): I48.0 - Paroxysmal atrial fibrillation Medications at Discharge Home Medications allopurinol 100 mg tablet 100 mg PO BID #180 tab 04/08/20 metformin 500 mg tablet 500 mg PO BID #180 tab 04/08/20 apixaban 5 mg tablet 5 mg PO BID #180 tab 06/08/20 duloxetine 60 mg capsule,delayed release 60 mg PO DAILY #90 cap 06/08/20 flecainide 50 mg tablet 50 mg PO BID #180 tab 06/08/20 potassium chloride 10 mEq tablet,extended release(part/cryst) 10 meq PO DAILY #90 tab 06/08/20 metoprolol tartrate 50 mg PO BID #60 tab 08/16/20 Hospital Course Operations None Procedures 2-D Echocardiogram Summary of Care Provided Minutes Spent on Discharge: 35 Hospital Course: Patient is an 80-year-old female admitted 08/15/2020 due to shortness of breath. Patient reports she has been working outside aggressively planting and feels she may have overdone it. 1. Atrial fibrillation with RVR-heart rate 160s in ED. Patient has a history of paroxysmal atrial fibrillation however states she has not had any issues that she is aware of for the past few years. She has had cardioversion in the past. She is on flecainide and metoprolol as well as Eliquis for anticoagulation. Patient initiated on Cardizem drip in the emergency room, converted to sinus rhythm. Increase home metoprolol to 50 mg twice daily. Continue home flecainide and Eliquis. Troponin negative. Echocardiogram completed, will be reviewed by cardiology prior to discharge. Previous echocardiogram 2018 unremarkable, EF 65%. 2. Type 2 diabetes mellitus with diabetic neuropathy, recent diagnosis Charcot foot-controlled, continue home oral regimen. On Cymbalta. 3. Hypertension-stable, continue metoprolol. 4. Elevated SKIP-undergoing outpatient evaluation. 5. Gout-on allopurinol. Patient seen and examined prior to discharge. Physical assessment as noted below. Patient is stable for discharge with follow up recommendations as noted above. This patient was seen by ROBYN Bashir under the supervision of Dr. Meza. Physical Exam Const alert, oriented x3 and no apparent distress Orientation / Consciousness: awake, oriented to person, oriented to place and oriented to time HEENT normocephalic and moist oral mucous membranes Eyes PERRL, EOMs intact bilaterally and conjunctivae normal Neck no lymphadenopathy Resp normal respiratory effort and clear to auscultation bilaterally Cardio regular rate, regular rhythm and no murmurs Peripheral Pulses: pulses 2+ throughout GI normal to inspection, nondistended, normoactive bowel sounds, non-tender and non-distended Extremity normal to inspection Skin no rashes or lesions noted Lesions: no lesions Rashes: no rashes Trauma: no lacerations or abrasions Neuro CN's II-XII intact bilaterally, no focal motor deficits, no sensory deficits noted and deep tendon reflexes 2+ bilaterally Psych mental status grossly normal and affect normal ABG / Lab / Microbiology Data Result Diagrams: 08/16/20 06:00 08/16/20 06:00 Laboratory: Laboratory Results - last 24 hr 08/15/20 08/15/20 08/15/20 16:25 16:25 19:57 WBC 6.2 RBC 4.65 Hgb 13.3 Hct 40.5 MCV 87.1 MCH 28.6 MCHC 32.8 RDW Std Deviation 43.8 RDW Coeff of Edelmira 13.8 Plt Count 244 MPV 9.9 Immature Gran % (Auto) 0.200 Neut % (Auto) 59.0 Lymph % (Auto) 32.0 Hardin % (Auto) 7.0 Eos % (Auto) 1.5 Baso % (Auto) 0.3 Absolute Neuts (auto) 3.7 Absolute Lymphs (auto) 1.98 Nucleated RBC % 0 Sodium 142 Potassium 3.6 Chloride 108 H Carbon Dioxide 25.0 Anion Gap 9 BUN 20 H Creatinine 0.94 Estim Creat Clear Calc 34.82 Est GFR (MDRD) Af Amer 73 Est GFR (MDRD) Non-Af 61 BUN/Creatinine Ratio 21.3 H Glucose 186 H Calcium 9.2 Phosphorus Magnesium Total Bilirubin AST ALT Alkaline Phosphatase Troponin I < 0.015 < 0.015 Total Protein Albumin Globulin Albumin/Globulin Ratio TSH POC Glucose 08/15/20 08/15/20 08/16/20 22:22 22:30 06:00 WBC 4.2 L RBC 4.23 Hgb 11.9 L Hct 37.9 MCV 89.6 MCH 28.1 MCHC 31.4 L RDW Std Deviation 45.1 H RDW Coeff of Edelmira 13.9 Plt Count 207 MPV 9.9 Immature Gran % (Auto) 0.200 Neut % (Auto) 46.9 L Lymph % (Auto) 40.2 Hardin % (Auto) 9.1 Eos % (Auto) 2.9 Baso % (Auto) 0.7 Absolute Neuts (auto) 2.0 Absolute Lymphs (auto) 1.68 Nucleated RBC % 0 Sodium Potassium Chloride Carbon Dioxide Anion Gap BUN Creatinine Estim Creat Clear Calc Est GFR (MDRD) Af Amer Est GFR (MDRD) Non-Af BUN/Creatinine Ratio Glucose Calcium Phosphorus Magnesium Total Bilirubin AST ALT Alkaline Phosphatase Troponin I < 0.015 Total Protein Albumin Globulin Albumin/Globulin Ratio TSH POC Glucose 156 H 08/16/20 08/16/20 06:00 06:48 WBC RBC Hgb Hct MCV MCH MCHC RDW Std Deviation RDW Coeff of Edelmira Plt Count MPV Immature Gran % (Auto) Neut % (Auto) Lymph % (Auto) Hardin % (Auto) Eos % (Auto) Baso % (Auto) Absolute Neuts (auto) Absolute Lymphs (auto) Nucleated RBC % Sodium 141 Potassium 3.8 Chloride 109 H Carbon Dioxide 27.0 Anion Gap 5 BUN 15 Creatinine 0.72 Estim Creat Clear Calc 34.30 Est GFR (MDRD) Af Amer 99 Est GFR (MDRD) Non-Af 82 BUN/Creatinine Ratio 20.7 H Glucose 128 H Calcium 8.3 L Phosphorus 4.2 Magnesium 1.9 Total Bilirubin 0.50 AST 16 ALT 19 Alkaline Phosphatase 70 Troponin I Total Protein 6.6 Albumin 3.3 Globulin 3.3 Albumin/Globulin Ratio 1.0 TSH 0.70 POC Glucose 123 H Radiography Diagnostic Testing: Radiology Impression Chest X-Ray 08/15/20 16:45 IMPRESSION: Stable, nonacute portable x-ray examination of the chest. Electronically Signed: Chris Talley MD (Brooks) at 16:58 EDT , Service support , D/C Instructions Discharge Diet: No restrictions Call your doctor if you observe: Shortness of breath, Dizziness, Chest pain and Increased palpitations (irregular heartbeat) Meaningful Use Info Meaningful Use Diagnoses (Choose all that apply): None applicable Discharge Plan Admission Admit Date/Time: 08/15/20 18:17 Primary Reason for Your Visit: Atrial fibrillation with RVR Attending Provider: Angelica Meza Primary Care Provider: Maria Del Carmen Case NP Discharge Orders/Prescriptions Prescriptions: New metoprolol tartrate 50 mg Tablet 50 mg PO BID Qty: 60 RF: 0 Continued apixaban 5 mg tablet 5 mg PO BID Qty: 180 RF: 3 flecainide 50 mg tablet 50 mg tablet 50 mg PO BID Qty: 180 RF: 2 duloxetine 60 mg capsule,delayed release(DR/EC) 60 mg PO DAILY Qty: 90 RF: 2 potassium chloride 10 mEq tablet,ER particles/crystals 10 meq PO DAILY Qty: 90 RF: 3 metformin 500 mg tablet 500 mg PO BID Qty: 180 RF: 3 allopurinol 100 mg tablet 100 mg PO BID Qty: 180 RF: 3 Discontinued metoprolol tartrate 25 mg tablet 25 mg PO BID Qty: 180 RF: 2 Referrals / Follow Up: Maria Del Carmen Case NP, DRUG CLERK-C [Primary Care Provider] - In 1 Week Joselyn Wilcox, PA [PHYSICIAN FLOORING MACHINE OPERATOR] - Within 2 Weeks Disposition Disposition (needs filled in before D/C Order can be placed): Home, self care Documented by User: Dr. Angelica Meza MD 08/16/20 14:47 Providers Date of Admission: 08/15/20 Reason For Visit: AFIB WITH RVR Medications at Discharge Home Medications allopurinol 100 mg tablet 100 mg PO BID #180 tab 04/08/20 metformin 500 mg tablet 500 mg PO BID #180 tab 04/08/20 apixaban 5 mg tablet 5 mg PO BID #180 tab 06/08/20 duloxetine 60 mg capsule,delayed release 60 mg PO DAILY #90 cap 06/08/20 flecainide 50 mg tablet 50 mg PO BID #180 tab 06/08/20 potassium chloride 10 mEq tablet,extended release(part/cryst) 10 meq PO DAILY #90 tab 06/08/20 metoprolol tartrate 50 mg PO BID #60 tab 08/16/20 Hospital Course Summary of Care Provided Minutes Spent on Discharge: 27 Hospital Course: This is an 80 years old female patient presented to the emergency room because of shortness of breath, palpitation and weakness, found to have A. fib with RVR. She does have a history of paroxysmal atrial fibrillation. She was started on Cardizem drip in the ED and she converted back to sinus rhythm. Patient has been on flecainide and metoprolol as well as Eliquis as outpatient. Since patient converted to sinus rhythm, she been stable, heart rate remained stable as muscle pressure. She had no more symptoms. Her troponin was negative x3. Her serum electrolytes including potassium, magnesium and calcium were within normal limits. TSH was normal. 2D echocardiogram done and report is pending. Dose of metoprolol adjusted to 50 mg p.o. twice daily. She was continued on flecainide and Eliquis. Patient discharged home in a stable medical condition, dose of metoprolol increased to 50 mg p.o. twice daily, continued on other home medications without any changes, plan to follow-up with cardiology as outpatient in 2 weeks, recommended from with PCP in 1 week. Physical Exam Const alert, oriented x3, no apparent distress and no limitations General Appearance: cooperative, comfortable and well kempt HEENT normocephalic, head/scalp atraumatic and moist oral mucous membranes Head and Scalp: normocephalic and atraumatic Eyes PERRL, EOMs intact bilaterally, conjunctivae normal and no scleral icterus General Eye: normal appearance of both eyes Periorbital: periorbital findings normal Neck no lymphadenopathy, supple, no meningeal signs, no JVD and no carotid bruits General: trachea midline Thyroid: thyroid normal Resp normal respiratory effort, normal air movement and clear to auscultation bilaterally Auscultation: Negative for crackles, rales, rhonchi or wheezes Cardio S1 normal heart sound, S2 normal heart sound, no murmurs and no JVD Cardio Narrative: Irregular rate and rhythm. Peripheral Pulses: pulses 2+ throughout GI normal to inspection, nondistended, normoactive bowel sounds, soft to palpation, non-tender and non-distended; Negative for hepatosplenomegaly Auscultation: normoactive bowel sounds Extremity normal to inspection, full ROM and no clubbing, cyanosis or edema Skin no rashes or lesions noted, no wounds and no petechiae Neuro oriented x3, CN's II-XII intact bilaterally and moves all extremities Sensorium / Orientation: alert Speech: speech normal Motor Exam: strength 5/5 throughout Psych mental status grossly normal, affect normal and denies hallucinations ABG / Lab / Microbiology Data Result Diagrams: 08/16/20 06:00 08/16/20 06:00 Discharge Plan Admission Admit Date/Time: 08/15/20 18:17 Primary Reason for Your Visit: Atrial fibrillation with RVR Attending Provider: Angelica Meza Primary Care Provider: Maria Del Carmen Case NP Discharge Orders/Prescriptions Prescriptions: New metoprolol tartrate 50 mg Tablet 50 mg PO BID Qty: 60 RF: 0 Continued apixaban 5 mg tablet 5 mg PO BID Qty: 180 RF: 3 flecainide 50 mg tablet 50 mg tablet 50 mg PO BID Qty: 180 RF: 2 duloxetine 60 mg capsule,delayed release(DR/EC) 60 mg PO DAILY Qty: 90 RF: 2 potassium chloride 10 mEq tablet,ER particles/crystals 10 meq PO DAILY Qty: 90 RF: 3 metformin 500 mg tablet 500 mg PO BID Qty: 180 RF: 3 allopurinol 100 mg tablet 100 mg PO BID Qty: 180 RF: 3 Discontinued metoprolol tartrate 25 mg tablet 25 mg PO BID Qty: 180 RF: 2 Referrals / Follow Up: Maria Del Carmen Case NP, DRUG CLERK-C [Primary Care Provider] - In 1 Week Joselyn Wilcox, PA [PHYSICIAN FLOORING MACHINE OPERATOR] - Within 2 Weeks Disposition Disposition (needs filled in before D/C Order can be placed): Home, self care Charges/Coding Visit Charges Inpatient E&M: 55747 Disch Hosp
[2020-08-16 12:30] LABS: Bedside Glucose 95 mg/dL (70-110)
--- NOTE | 2020-08-16 13:42 | CHAPLAIN ---
Type of Pastoral Visit _x__ Initial Visit ___ Follow-up Visit ___ On-call Visit ___ General Patient Visit ___ Spiritual Assessment ___ Family Conference ___ Bereavement ___ Rapid Response ___ Code Blue ___ Other (describe below) Pastoral Care Referral From _x__ Patient ___ Family ___ Nurse ___ Physician ___ [place] ___ Dot Net Architect ___ Other (describe below) Sacrament/Intervention _x__ Active listening ___ Anointing ___ Yarsani ___ Bereavement ___ Communion ___ Sherri exploration ___ _x__ Life review _x__ Prayer ___ Reconciliation ___ Sacrament of Sick _x__ Supportive presence ___ Wedding ___ Other (describe below) Pastoral Comments
--- NOTE | 2020-08-16 13:55 | PHA.DC.MR ---
Pharmacy Service has performed discharge medication reconciliation for this patient. The patient's discharge medication list was reviewed for discrepancies and discrepancies were resolved. Home Medications allopurinol 100 mg tablet 100 mg PO BID #180 tab 04/08/20 metformin 500 mg tablet 500 mg PO BID #180 tab 04/08/20 apixaban 5 mg tablet 5 mg PO BID #180 tab 06/08/20 duloxetine 60 mg capsule,delayed release 60 mg PO DAILY #90 cap 06/08/20 flecainide 50 mg tablet 50 mg PO BID #180 tab 06/08/20 potassium chloride 10 mEq tablet,extended release(part/cryst) 10 meq PO DAILY #90 tab 06/08/20 metoprolol tartrate 50 mg PO BID #60 tab 08/16/20
--- NOTE | 2020-08-16 14:27 | NURSING ---
RNCM Note: Went to patient bedside, introduced self and role. Patient ready for DC with friend at bedside. Address and phone on demographics verified correct. Patient lives alone, Independent with ambulation and ADLs. Has a cane and walker available if needed. Patient drives. Watches her great grand children. Denies any issues, concerns, needs or questions with going home and DC planning at this time. No RNCM needs identified. Griselda Saini RNCM
== END 2020-08-16 11:19 | disposition home or self-care (01) ==
LOC: ED 17:46 → PCU 18:32
PROVIDERS: Admitting Provider Internal Medicine; Emergency Provider Emergency Medicine; PCP Nurse Practitioner; Visit Provider Hospitalist
DX: I48.0 Paroxysmal atrial fibrillation (principal); I10 Essential (primary) hypertension; M19.90 Unspecified osteoarthritis, unspecified site; M79.7 Fibromyalgia; M06.9 Rheumatoid arthritis, unspecified; M10.9 Gout, unspecified; R22.1 Localized swelling, mass and lump, neck; E78.00 Pure hypercholesterolemia, unspecified; Z79.899 Other long term (current) drug therapy; Z79.84 Long term (current) use of oral hypoglycemic drugs; Z79.01 Long term (current) use of anticoagulants; E11.40 Type 2 diabetes mellitus with diabetic neuropathy, unspecified; Z66 Do not resuscitate
CPT/HCPCS: 36415; 71045; 80048; 80053; 82962; 83735; 84100; 84443; 84484; 85025; 93005; 93306; 96365; 96366; 96375; 99218; 99284; A4216; G0378

== ENCOUNTER → 2021-07-01 | Outpatient (CLI) | payer MEDICARE, SELFPAY ==
[2021-07-01 22:48] LABS: AST(SGOT) 11 U/L (15-37); Alanine Aminotransfer ALT/SGPT 21 U/L (13-56); Albumin, Serum 3.6 g/dL (3.2-5.0); Alkaline Phosphatase 67 U/L (45-117); Anion Gap 6 (5-15); BUN 14 mg/dL (7-18); BUN/Creat Ratio 17.3 RATIO (10-20); Chloride 104 mmol/L (98-107); Creatinine, Serum 0.81 mg/dL (0.55-1.02); EST Glomerular Filtration Rate 72 mL/min (>60); Est Glom Filt Rate - Afr Amer 87 mL/min (>60); Globulin 3.6 g/dL (2.2-4.2); Glucose 168 mg/dL (74-106); Hemoglobin A1c 6.4 % (3.8-5.6); Magnesium 1.6 mg/dL (1.6-2.6); Potassium 3.5 mmol/L (3.5-5.1); Protein, Total 7.2 g/dL (6.4-8.2); Sodium Level 137 mmol/L (136-145); Thyroid Stim Hormone (TSH) 0.65 uIU/mL (0.358-3.74)
== END | disposition home or self-care (01) ==
PROVIDERS: PCP Nurse Practitioner; Visit Provider Nurse Practitioner
DX: I10 Essential (primary) hypertension (principal); E11.65 Type 2 diabetes mellitus with hyperglycemia; E83.42 Hypomagnesemia
CPT/HCPCS: 80053; 83036; 83735; 84443

== ENCOUNTER 2021-09-29 18:18 | Emergency (ER) | payer MEDICARE, SELFPAY ==
[2021-09-29 18:19] VITALS: BP 206/86; PULSE 98; RESP 16; TEMP 36.6; O2SAT 97; BMI 32.9
--- NOTE | 2021-09-29 18:32 | EKG12_ITS ---
Test Reason : Blood Pressure : / mmHG Vent. Rate : 094 BPM Atrial Rate : 094 BPM P-R Int : 180 ms QRS Dur : 078 ms QT Int : 362 ms P-R-T Axes : 032 -05 022 degrees QTc Int : 452 ms Normal sinus rhythm Inferior infarct , age undetermined Cannot rule out Anterior infarct , age undetermined , cannot be excluded Abnormal ECG Reconfirmed by DAYANNA MOORE, ALLIE ([id number]), publishing editor GERRY VILLAREAL ([id number]) on 10/03/2021 2:06:16 PM Referred By: Confirmed By:ALLIE ALAN MD
--- NOTE | 2021-09-29 18:55 | RAD_ITS ---
INDICATION: chest pain EXAMINATION/TECHNIQUE: X-RAY - XR Chest 1 View COMPARISON: 08/15/2020 FINDINGS: LIFE-SUPPORT AND LINES: 1. None HEART AND VESSELS: The cardiac silhouette, pulmonary vasculature have normal appearance. No evidence of congestive failure. LUNGS AND PLEURAL SPACES: Elevation of the RIGHT hemidiaphragm. Minimal atelectasis. No focal infiltrate consolidation or effusion. No pulmonary mass is noted. MEDIASTINUM AND HILAR REGIONS: No masses adenopathy noted. No areas of calcification. Visualized upper airway is normal in position. BONY ELEMENTS: No acute bony changes noted. RAD/Chest 1 View (Portable) IMPRESSION: 1. Chronic elevation LEFT hemidiaphragm, mild basilar atelectasis. 2. No focal infiltrate, consolidation or effusion. No acute process. No evidence of congestive failure. Electronically Signed: Miguel Cannon MD at 19:32 EDT ,
--- NOTE | 2021-09-29 18:57 | ED.VIS.DYS ---
HPI History of Present Illness Chief Complaint: Edema Narrative Narrative: 81-year-old female with history of diabetes, A. fib, obesity, hypertension presenting with lower extremity edema, shortness of breath with exertion. She states is been going on for a few days. She states that she has no history of lower extremity swelling and dyspnea on exertion. She has no history of CHF. Patient states she is on Eliquis but she is not having any black or bloody stools. She does not have chest pain associated with shortness of breath. She does have left shoulder pain. She states that previously she had injured her left shoulder taking out the trash and felt something pop in the left shoulder. She is not had this evaluated. She has pain with range of motion of the left shoulder. She has no paresthesias. She has no abdominal pain, nausea or vomiting. She has no urinary symptoms. No constipation or diarrhea. [facility] Medical History Anxiety Arthritis Atrial fibrillation Back pain Cystitis without hematuria Diabetes type 2, uncontrolled Essential hypertension Fatigue Fibromyalgia Gout Knee pain Paroxysmal atrial fibrillation Pure hypercholesterolemia Rash of face Rheumatoid arthritis Submental mass Home Medications potassium chloride 10 mEq tablet,extended release(part/cryst) 10 meq PO DAILY supplement #90 tabs 06/08/20 [Rx Last Taken Unknown] omeprazole 20 mg capsule,delayed release 20 mg PO DAILY 08/23/20 [History Last Taken Unknown] allopurinol 100 mg tablet 100 mg PO BID #180 tabs 03/30/21 [Rx Last Taken Unknown] apixaban 5 mg tablet 5 mg PO BID blood thinner #180 tabs 03/30/21 [Rx Last Taken Unknown] duloxetine 60 mg capsule,delayed release 60 mg PO DAILY depression #90 caps 03/30/21 [Rx Last Taken Unknown] flecainide 100 mg tablet 100 mg PO BID arrthymia #180 tabs 03/30/21 [Rx Last Taken Unknown] metformin 500 mg tablet 500 mg PO BID #180 tabs 03/30/21 [Rx Last Taken Unknown] prednisone 2.5 mg tablet 2.5 mg PO DAILY #90 tabs 03/30/21 [Rx Last Taken Unknown] amoxicillin 875 mg tablet 875 mg PO BID #20 tabs 07/12/21 [Rx Last Taken Unknown] metoprolol tartrate 50 mg tablet 50 mg PO BID Patient's dose increased #180 tabs 09/05/21 [Rx Last Taken Unknown] Allergy/AdvReac Type Severity Reaction Status Date / Time Sulfa (Sulfonamide Allergy Severe rash Verified 09/29/21 18:22 Antibiotics) contact metal agent Allergy NEEDS Verified 09/29/21 18:22 FOLLOW-UP lisinopril AdvReac Severe cough Verified 09/29/21 18:22 Family History Father Heart disease Mother Heart disease Rheumatoid arthritis Sister No problems noted. Other CHF (congestive heart failure) Surgical History History of ankle surgery History of appendectomy History of bilateral hip replacements History of tonsillectomy Hx of foot surgery Social History Smoking Status: Never smoker alcohol intake: never substance use type: does not use caffeine: Yes Type: coffee Number of servings: 1 ROS ROS ED Constitutional Constitutional ED: Denies chills, fever(s) or sweats Eyes Eyes: Denies blurry vision or change in vision ENT ENT ED: Denies ear pain or sore throat Cardiovascular Cardiovascular: Denies chest pain, palpitations or racing heartbeat Respiratory/Chest Respiratory/Chest: Reports dyspnea and dyspnea on exertion; Denies sputum Gastrointestinal Gastrointestinal: Denies abdominal pain, constipation, diarrhea, nausea or vomiting Genitourinary Genitourinary ED: Denies dysuria, hematuria or urinary frequency Musculoskeletal Musculoskeletal: Reports other Details: Left shoulder pain ; Denies arthralgias, myalgias or neck pain Integumentary Reports other Details: Bilateral lower extremity edema ; Denies abscess, Abrasions or rash Neurologic Neurologic: Denies headache(s), paresthesias or weakness Psychiatric Psychiatric: Denies anxiety, depression, suicidal ideation or suicidal thoughts Endocrine Endocrinology: Denies polydipsia or polyuria EXAM Physical Exam Const Vital Signs: 09/29/21 18:19 09/29/21 18:50 09/29/21 18:32 Temperature 97.9 F Temperature Source Temporal Pulse Rate 98 Respiratory Rate 16 Respiratory Effort Labored Blood Pressure 206/86 H Blood Pressure Mean 126 Pulse Ox 97 Oxygen Delivery Method Room Air Room Air 09/29/21 20:39 Temperature Temperature Source Pulse Rate 86 Respiratory Rate 16 Respiratory Effort Blood Pressure Blood Pressure Mean Pulse Ox 97 Oxygen Delivery Method Room Air Positive well nourished and obese General Appearance ED: NAD; Negative for pallor Nutritional Appearance: obese HEENT Reports moist mucous membranes atraumatic Eyes PERRL and EOMs intact bilaterally General Eye ED: Negative for pale conjunctiva or scleral icterus Resp normal respiratory effort and clear to auscultation bilaterally Auscultation: Negative for rales, rhonchi or wheezes Cardio regular rate and regular rhythm GI Auscultation: normoactive bowel sounds Extremity General Extremety ED: Yes edema; Negative for tenderness General Extremity: edema Neuro oriented x3 and CN's II-XII intact bilaterally Sensorium / Orientation: alert Motor Exam: strength 5/5 throughout Psych mental status grossly normal Skin General Skin Exam: Negative for jaundice or pallor MDM MDM MDM Narrative Medical decision making narrative: Patient presenting with dyspnea on exertion, lower extremity edema. She states these are both new. I saw that when she was previously hospitalized in August 2020 she had an echocardiogram this showed that she had an ejection fraction of 65%. There was trivial mitral valve insufficiency and trivial tricuspid valve insufficiency. Mild diffuse aortic valve thickening. Patient is not on any diuretics. There is no documented history of CHF. She is not had any fever, chills, cough, body aches. It is noted that her blood pressure is little bit elevated today at 206/86. Patient states she did not take her metoprolol or her flecainide tonight. This was provided for her. She really wants her Eliquis as well so this was given. CBC shows a white blood cell count of 6.7. Hemoglobin hematocrit are stable. Platelets are normal. Renal function electrolytes within normal limits and at baseline. High-sensitivity troponin is 7. BNP is elevated at 111.9. EKG on my interpretation shows a normal sinus rhythm with a ventricular rate of 94 bpm without sign of ischemic change or dysrhythmia. Patient is on Eliquis so I have little suspicion for PE. Patient was ambulated and desaturated maintain sats of 94 to 93%. She has a little bit dyspneic. She does have some lower extremity edema. I will give her a dose of Lasix 40 mg IV here and have her call Dr. Peres's office tomorrow. Impression: 1. Dyspnea 2. Lower extremity edema Lab Data Attestation: I reviewed the patient's lab results. Labs: Laboratory Results - last 24 hr 09/29/21 09/29/21 09/29/21 18:45 18:45 18:45 WBC 6.7 RBC 4.23 Hgb 12.0 Hct 36.8 L MCV 87.0 MCH 28.4 MCHC 32.6 RDW Std Deviation 41.4 RDW Coeff of Edelmira 13.2 Plt Count 257 MPV 9.5 Immature Gran % (Auto) 0.300 Neut % (Auto) 57.1 Lymph % (Auto) 30.9 Saunders % (Auto) 8.0 Eos % (Auto) 3.2 Baso % (Auto) 0.5 Absolute Neuts (auto) 3.8 Absolute Lymphs (auto) 2.06 Nucleated RBC % 0 Sodium 140 Potassium 3.6 Chloride 104 Carbon Dioxide 27.0 Anion Gap 9 BUN 14 Creatinine 0.88 Estim Creat Clear Calc 38.31 Est GFR (MDRD) Af Amer 79 Est GFR (MDRD) Non-Af 65 BUN/Creatinine Ratio 15.9 Glucose 143 H Calcium 9.0 Troponin I High Sens 7 B-Natriuretic Peptide 111.9 H Radiography Diagnostic Testing: Clinical Impression(s) from Imaging Studies Chest X-Ray 09/29/21 18:55 IMPRESSION: 1. Chronic elevation LEFT hemidiaphragm, mild basilar atelectasis. 2. No focal infiltrate, consolidation or effusion. No acute process. No evidence of congestive failure. Electronically Signed: Miguel Cannon MD at 19:32 EDT , Shoulder X-Ray 09/29/21 19:00 IMPRESSION: Negative. Electronically Signed: Miguel Cannon MD at 19:34 EDT , Discharge Plan Triage Chief Complaint: Edema ED Provider: Suhas Clark Dx/Rx/DC Orders Prescriptions: No Action omeprazole 20 mg capsule,delayed release(DR/EC) 20 mg PO DAILY potassium chloride 10 mEq tablet,ER particles/crystals 10 meq PO DAILY Qty: 90 3RF allopurinol 100 mg tablet 100 mg PO BID Qty: 180 3RF apixaban 5 mg tablet 5 mg PO BID Qty: 180 3RF duloxetine 60 mg capsule,delayed release(DR/EC) 60 mg PO DAILY Qty: 90 3RF flecainide 100 mg tablet 100 mg PO BID Qty: 180 3RF metformin 500 mg tablet 500 mg PO BID Qty: 180 3RF Rx Instructions: start 1 tab qd for 10 days then go to 2 x a day prednisone 2.5 mg tablet 2.5 mg PO DAILY Qty: 90 3RF amoxicillin 875 mg tablet 875 mg PO BID Qty: 20 0RF metoprolol tartrate 50 mg tablet 50 mg PO BID Qty: 180 1RF Primary Care Provider: Maria Del Carmen Case NP Referrals: Maria Del Carmen Case NP, COLLECTION SYSTEMS CONSULTANT-C [Primary Care Provider] -
--- NOTE | 2021-09-29 19:00 | RAD_ITS ---
INDICATION: pain EXAMINATION/TECHNIQUE: X-RAY - LEFT XR Shoulder Min 2 Views 4 VIEWS COMPARISON: None. FINDINGS: SOFT TISSUES: No soft tissue swelling or gas. No radiopaque foreign body. BONES/JOINTS: No acute fracture or subluxation.. Normal alignment. Preservation of the joint space.. No sclerotic or destructive changes observed. Normal glenohumeral motion is noted. Normal appearance of the AC joint and visualized LEFT rib cage. RAD/Shoulder min 2 Views IMPRESSION: Negative. Electronically Signed: Miguel Cannon MD at 19:34 EDT ,
[2021-09-29 19:05] LABS: Absolute Lymphocyte Count 2.06 X10^3/uL (0.83-4.51); Absolute Neutrophil Count 3.8 X10^3/uL (2.0-7.7); Basophil# 0.03 X10^3/uL; Basophil% 0.5 % (0-1); Eosinophil# 0.21 X10^3/uL; Eosinophils% 3.2 % (0-5); Hematocrit 36.8 % (37-47); Lymphocyte # 2.06 X10^3/ul (0.83-4.51); Lymphocyte % 30.9 % (19-41); Mean Corp Hgb Conc 32.6 g/dL (32-36); Mean Corpuscular Hgb 28.4 pg (27.0-32.0); Mean Platelet Vol. 9.5 fl (6.2-12.0); Monocyte# 0.53 X10^3/uL; NRBC Flagged by Analyzer 0 % (0-5); Neutrophil # 3.81 X10^3/uL (2.7-7.7); Neutrophil % 57.1 % (47-70); Platelet Count 257 K/mm3 (150-450); RBC Distribution Width CV 13.2 % (11.6-14.6); RBC Distribution Width SD 41.4 fl (35.1-43.9); Red Blood Count 4.23 M/mm3 (4.2-5.4); White Blood Count 6.7 K/mm3 (4.4-11.0)
[2021-09-29 19:22] LABS: Anion Gap 9 (5-15); BUN 14 mg/dL (7-18); BUN/Creat Ratio 15.9 RATIO (10-20); Chloride 104 mmol/L (98-107); Creatinine, Serum 0.88 mg/dL (0.55-1.02); EST Glomerular Filtration Rate 65 mL/min (>60); Est Glom Filt Rate - Afr Amer 79 mL/min (>60); Estimated Creatinine Clearance 38.31 ml/min; Glucose 143 mg/dL (74-106); Potassium 3.6 mmol/L (3.5-5.1); Sodium Level 140 mmol/L (136-145); Troponin-I HS (w/2H Reflex) 7 pg/mL (3.0-54.0)
[2021-09-29] MEDS: APIXABAN 5 MG TABLET PO (19:24)
[2021-09-29 19:27] LABS: BNP,B-Type NATRIURETIC PEPTIDE 111.9 pg/mL (0-100)
[2021-09-29] MEDS: Metoprolol Tartrate 25 MG Tablet 50 MG PO (19:40)
[2021-09-29] MEDS: Flecainide 100 MG Tablet PO (19:41)
[2021-09-29 20:16] VITALS: O2SAT 93
[2021-09-29 20:39] VITALS: PULSE 86; RESP 16; O2SAT 97
[2021-09-29 21:01] LABS: Reflex Troponin-HS? (from REC) Y
[2021-09-29] MEDS: Furosemide 40 MG/4 ML Vial IV (21:34)
[2021-09-29 21:46] VITALS: BP 129/76; PULSE 89; RESP 22; O2SAT 94
== END 2021-09-29 21:47 | disposition home or self-care (01) ==
PROVIDERS: Emergency Provider Student in an Organized Health Care Education/Training Program; PCP Nurse Practitioner; Visit Provider Student in an Organized Health Care Education/Training Program
DX: R06.00 Dyspnea, unspecified (principal); I48.91 Unspecified atrial fibrillation; E11.9 Type 2 diabetes mellitus without complications; R60.0 Localized edema; E66.9 Obesity, unspecified; I10 Essential (primary) hypertension; Z79.899 Other long term (current) drug therapy; Z79.84 Long term (current) use of oral hypoglycemic drugs; Z79.01 Long term (current) use of anticoagulants
CPT/HCPCS: 71045; 73030; 80048; 83880; 84484; 85025; 93005; 96374; 99285; A4216; J1940

== ENCOUNTER → 2021-10-05 | Outpatient (CLI) | payer MEDICARE, SELFPAY ==
[2021-10-05 16:00] LABS: Anion Gap 7 (5-15); BUN 13 mg/dL (7-18); BUN/Creat Ratio 16.4 RATIO (10-20); Calcium,Total 9.2 mg/dL (8.5-10.1); Chloride 102 mmol/L (98-107); Creatinine, Serum 0.79 mg/dL (0.55-1.02); EST Glomerular Filtration Rate 74 mL/min (>60); Est Glom Filt Rate - Afr Amer 89 mL/min (>60); Glucose 176 mg/dL (74-106); Potassium 3.5 mmol/L (3.5-5.1); Sodium Level 138 mmol/L (136-145)
[2021-10-05 17:59] LABS: BNP,B-Type NATRIURETIC PEPTIDE 117.5 pg/mL (0-100)
== END | disposition home or self-care (01) ==
LOC: LAB 15:04
PROVIDERS: PCP Nurse Practitioner; Visit Provider Nurse Practitioner Gerontology
DX: R06.09 Other forms of dyspnea (principal)
CPT/HCPCS: 36415; 80048; 83880

== ENCOUNTER → 2021-10-17 | Outpatient (CLI) | payer MEDICARE, SELFPAY ==
[2021-10-17 14:00] LABS: Anion Gap 4 (5-15); BUN 17 mg/dL (7-18); BUN/Creat Ratio 24.3 RATIO (10-20); Calcium,Total 9.2 mg/dL (8.5-10.1); Chloride 104 mmol/L (98-107); EST Glomerular Filtration Rate 85 mL/min (>60); Est Glom Filt Rate - Afr Amer 103 mL/min (>60); Glucose 115 mg/dL (74-106); Sodium Level 137 mmol/L (136-145)
== END | disposition home or self-care (01) ==
LOC: LAB 13:02
PROVIDERS: PCP Nurse Practitioner; Referring Provider Nurse Practitioner Gerontology; Visit Provider Nurse Practitioner Gerontology
DX: M79.89 Other specified soft tissue disorders (principal); R06.09 Other forms of dyspnea
CPT/HCPCS: 36415; 80048

== ENCOUNTER → 2021-11-01 | Outpatient (CLI) | payer MEDICARE, SELFPAY ==
--- NOTE | 2021-11-01 06:51 | ECHOD_ITS ---
[id number] ECHO^ECHOD^Echo Complete [id number] Reason For Study: DYSPNEA Procedure This was a 2D Doppler, Color Flow transthoracic echocardiogram. The study was technically difficult. Exam performed in department. Left Ventricle Normal LV size. Moderate concentric left ventricular hypertrophy. Left ventricular systolic function is normal. The estimated ejection fraction is 70 %. Stage 2 diastolic dysfunction. No regional wall motion abnormalities noted. Right Ventricle Normal RV size. Normal systolic function. Atria The left atrium is moderately enlarged. Normal right atrium. No doppler evidence for ASD. Mitral Valve There is mild to moderate mitral annular calcification. Extension of the mitral annular calcification onto the base of the posterior mitral valve leaflet. Trivial mitral valve insufficiency. Tricuspid Valve Normal tricuspid valve. Trivial tricuspid valve insufficiency. Unable to estimate RV systolic pressure/pulmonary artery pressure due to technically difficult study. Aortic Valve Trisinus/trileaflet aortic valve. Mild diffuse aortic valve thickening. Mild focal aortic valve calcification. Pulmonic Valve The pulmonic valve is not well visualized. Mild (1+) pulmonic valve insufficiency. Great Vessels Borderline enlarged aortic root. Pericardium/Pleural No pericardial effusion. MMode/2D Measurements & Calculations IVSd: 1.8 cm LVIDd: 4.2 cm FS: 40.0 % LVIDs: 2.5 cm LVPWd: 1.6 cm ESV(MOD-sp4): 17.7 ml Ao root diam: 3.9 cm LAV(MOD-bp): 94.6 ml LAV(MOD-bp) Indexed: 52.2 ml/m2 LAV(MOD-sp2): 89.8 ml LAV(MOD-sp4): 93.3 ml SV(MOD-sp4): 42.9 ml SV(sp4-el): 46.3 ml LVAd ap4: 23.4 cm2 LVLd ap4: 7.5 cm EDV(MOD-sp4): 60.6 ml EDV(sp4-el): 61.9 ml LVAs ap4: 10.2 cm2 LVLs ap4: 5.7 cm ESV(sp4-el): 15.6 ml EF(MOD-sp4): 70.8 % EF(sp4-el): 74.8 % LA A4 area: 27.3 cm2 LA dimension(2D): 4.5 cm RA A4 area: 16.2 cm2 Time Measurements MV dec time: 0.16 sec Doppler Measurements & Calculations MV E max bridger: 104.0 cm/sec Lat Peak E' Bridger: 9.4 cm/sec MV V2 max: 143.2 cm/sec MV A max bridger: 136.9 cm/sec MV max P.2 mmHg MV E/A: 0.76 MV V2 mean: 93.8 cm/sec Med Peak E' Bridger: 5.1 cm/sec MV mean P.0 mmHg MV V2 VTI: 34.8 cm Ao V2 max: 213.3 cm/sec LV V1 max P.0 mmHg MV dec slope: 633.0 cm/sec2 Ao max P.2 mmHg LV V1 mean P.6 mmHg Ao V2 mean: 148.9 cm/sec LV V1 max: 141.5 cm/sec Ao mean P.0 mmHg LV V1 mean: 101.7 cm/sec Ao V2 VTI: 43.7 cm LV V1 VTI: 30.7 cm PA V2 max: 95.1 cm/sec E/E' lat: 11.1 E/E' med: 20.3 ECHO/Echo Complete Interpretation Summary The study was technically difficult. Left ventricular systolic function is normal. The estimated ejection fraction is 70 %. Moderate concentric left ventricular hypertrophy. The left atrium is moderately enlarged. There is mild to moderate mitral annular calcification. Extension of the mitral annular calcification onto the base of the posterior mi tral valve leaflet. Trivial mitral valve insufficiency. Trivial tricuspid valve insufficiency. Mild diffuse aortic valve thickening. Mild focal aortic valve calcification. Mild (1+) pulmonic valve insufficiency. Unable to estimate RV systolic pressure/pulmonary artery pressure due to techni alin difficult study. Stage 2 diastolic dysfunction. Ordering Physician: Janet Tariq Referring Physician: Janet Tariq Performed By: Tatianna Salcedo RCS
--- NOTE | 2021-11-01 16:11 | STRESSREP ---
Stress Test Report Date: 11-01-2021 Procedure: Pharmacologic stress nuclear imaging study Indications: Chest pain; dyspnea on exertion; fatigue; atrial fibrillation Consent: Per the patient Procedure: The patient underwent pharmacologic (Regadenoson 0.4mg ) evaluation with a peak heart rate of 97 beats per minute (70%predicted maximal heart rate) and a peak blood pressure of 140/72 mmHg. The baseline ECG demonstrated sinus rhythm. The peak pharmacologic ECG demonstrated no obvious ECG changes. There were no cardiac dysrhythmias pretest, during pharmacologic infusion, or recovery. There was no complaint of chest discomfort during pharmacologic infusion or recovery. The examination was discontinued secondary to completion of protocol. Impression: 1. Pharmacologic (Regadenoson) evaluation 2. Peak pharmacologic ECG with no obvious ECG changes. 3. There were no cardiac dysrhythmias pretest, during pharmacologic infusion, or recovery. 4. Nuclear images pending Myocardial perfusion imaging study: Technique: The patient was injected with 11.7 millicuries of technetium 99m Cardiolite and subsequently rest SPECT Cardiolite nuclear imaging was obtained in the horizontal long, vertical long, and short axis views. The patient underwent pharmacologic (Regadenoson) evaluation with a peak heart rate of 90 beats per minute (70% percent predicted maximal heart rate) and a peak blood pressure of 140/72 mmHg. The patient was injected with 35.5 millicuries of technetium 99m Cardiolite and subsequently stress SPECT Cardiolite nuclear imaging was obtained in the horizontal long, vertical long, and short axis views. A gated Cardiolite study at peak stress was obtained. Interpretation: Rest and stress SPECT Cardiolite nuclear imaging status post realignment, normalization, and attenuation correction demonstrate relative uniform tracer uptake and myocardial perfusion appearing within normal limits. There is end systolic thickening and brightening. The gated Cardiolite study demonstrates myocardial thickening and inward wall motion. The reported LVEF is 76%. Impression: 1. Rest and stress SPECT Cardiolite nuclear imaging demonstrate relative uniform tracer uptake and myocardial perfusion appearing within normal limits. 2. The gated Cardiolite study reports an LVEF of 76%. This note was generated with [employer] software. It may contain incorrect words, spelling, and punctuation that were not noted in checking the note before signing.
== END | disposition home or self-care (01) ==
PROVIDERS: PCP Nurse Practitioner; Referring Provider Nurse Practitioner Gerontology; Visit Provider Nurse Practitioner Gerontology
DX: R07.9 Chest pain, unspecified (principal); R06.09 Other forms of dyspnea; R53.83 Other fatigue
CPT/HCPCS: 78452; 93017; 93306; A9500; A4216; J2785

== ENCOUNTER → 2021-11-28 | Outpatient (CLI) | payer MEDICARE, SELFPAY ==
--- NOTE | 2021-11-28 12:42 | VDLE_ITS ---
Reason For Study: RLE swelling RIGHT LEFT GSV is normal. CFV is compressible, spontaneous, phasic, CFV is compressible, spontaneous, phasic, competent, and demonstrates normal competent and demonstrates normal augmentation. augmentation. FV is compressible, spontaneous, phasic, competent and demonstrates normal augmentation. POP V is compressible, spontaneous, phasic, competent and demonstrates normal augmentation. T/P Trunk is compressible. PTV is compressible. RT PerV is compressible. Non-vascular structure measuring 2.67 x 0.78 x 2.84cm in the RT Pop Fossa Space. Procedure This is a venous duplex using B-mode, color flow and spectral Doppler. Exam performed in department. A preliminary report was called and/or faxed to Janet CARLSON @ 1:15 pm @ [phone]. VL/Venous Duplex US, Unilateral Interpretation Summary There is no evidence of right lower extremity deep vein thrombosis. Right great saphenous vein appears patent and compressible segmentally. 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 Clinical correlati on would be appropriate. Normal flow patterns left common femoral vein Ordering Physician: Janet Tariq Referring Physician: Maria Del Carmen Case Performed By: Vivienne Black RDCS, RVT
== END | disposition home or self-care (01) ==
LOC: CVS 12:41
PROVIDERS: PCP Nurse Practitioner; Referring Provider Nurse Practitioner Gerontology; Visit Provider Nurse Practitioner Gerontology
DX: M79.89 Other specified soft tissue disorders (principal)
CPT/HCPCS: 93971

== ENCOUNTER → 2022-02-06 | Outpatient (CLI) | payer MEDICARE, SELFPAY ==
[2022-02-06 21:49] LABS: Lyme Ab Screen Interpretation REF LAB
[2022-02-06 22:03] LABS: Absolute Lymphocyte Count 1.94 X10^3/uL (0.83-4.51); Basophil# 0.02 X10^3/uL; Basophil% 0.4 % (0-1); Eosinophils% 1.8 % (0-5); Hematocrit 36.8 % (37-47); Hemoglobin 11.6 g/dL (12.0-15.0); Lymphocyte # 1.94 X10^3/ul (0.83-4.51); Lymphocyte % 35.5 % (19-41); Mean Corp Hgb Conc 31.5 g/dL (32-36); Mean Corpuscular Hgb 27.2 pg (27.0-32.0); Mean Corpuscular Volume 86.4 fL (81-99); Mean Platelet Vol. 10.1 fl (6.2-12.0); Monocyte# 0.43 X10^3/uL; Monocyte% 7.9 % (0-10); NRBC Flagged by Analyzer 0 % (0-5); Neutrophil # 2.97 X10^3/uL (2.7-7.7); Neutrophil % 54.2 % (47-70); Platelet Count 292 K/mm3 (150-450); RBC Distribution Width CV 13.8 % (11.6-14.6); RBC Distribution Width SD 42.9 fl (35.1-43.9); Red Blood Count 4.26 M/mm3 (4.2-5.4); White Blood Count 5.5 K/mm3 (4.4-11.0)
[2022-02-06 22:23] LABS: ALB/GLOB Ratio 0.9 RATIO (0.9-2.4); Albumin, Serum 3.7 g/dL (3.2-5.0); BUN 14 mg/dL (7-18); BUN/Creat Ratio 14.3 RATIO (10-20); Calcium,Total 9.4 mg/dL (8.5-10.1); Creatinine, Serum 0.98 mg/dL (0.55-1.02); EST Glomerular Filtration Rate 57 mL/min (>60); Est Glom Filt Rate - Afr Amer 70 mL/min (>60); Globulin 4.1 g/dL (2.2-4.2); Glucose 126 mg/dL (74-106); Protein, Total 7.8 g/dL (6.4-8.2)
[2022-02-06 22:24] LABS: AST(SGOT) 15 U/L (15-37); Alanine Aminotransfer ALT/SGPT 22 U/L (13-56); Alkaline Phosphatase 81 U/L (45-117); Anion Gap 7 (5-15); Chloride 102 mmol/L (98-107); Cholesterol 181 mg/dL (200); Hemoglobin A1c 6.8 % (3.8-5.6); High Density Lipoprotein 43 mg/dL; Magnesium 1.6 mg/dL (1.6-2.6); Potassium 3.9 mmol/L (3.5-5.1); Sodium Level 139 mmol/L (136-145); Triglycerides 317 mg/dL; Very Low Density Lipoprotein 63 mg/dL (5-40)
[2022-02-08 12:54] LABS: Lyme Scn Total Ab w/Rflx Negative (Negative)
== END | disposition home or self-care (01) ==
PROVIDERS: PCP Nurse Practitioner; Visit Provider Nurse Practitioner
DX: E83.42 Hypomagnesemia (principal); E11.65 Type 2 diabetes mellitus with hyperglycemia; I48.91 Unspecified atrial fibrillation; M19.90 Unspecified osteoarthritis, unspecified site; M25.551 Pain in right hip; L08.9 Local infection of the skin and subcutaneous tissue, unspecified; B95.8 Unspecified staphylococcus as the cause of diseases classified elsewhere
CPT/HCPCS: 80053; 80061; 83036; 83735; 85025; 86618

== ENCOUNTER → 2022-03-27 | Outpatient (CLI) | payer MEDICARE, SELFPAY ==
--- NOTE | 2022-03-27 14:02 | RAD_ITS ---
INDICATION: Shortness breath, weakness EXAMINATION/TECHNIQUE: X-RAY - frontal and lateral views of chest COMPARISON: Chest x-ray from 09/29/2021 FINDINGS: LINES/DEVICES: IVC filter noted. LUNGS: Chronically elevated right hemidiaphragm. Coarsened bibasilar lung markings. Stable linear scarring left lower lung. No overt pulmonary edema. No sizable pleural effusion. No detectable pneumothorax. MEDIASTINUM AND CARDIOVASCULAR STRUCTURES: Stable upper limits normal heart size. Atherosclerotic calcifications along aorta. BONES AND SOFT TISSUES: Partially displaced lateral right lower rib fractures. Skeletal degenerative changes with mild thoracolumbar levoscoliosis. RAD/Chest PA and Lateral IMPRESSION: Right lower rib fractures, indeterminate age. Correlate clinically. Mild bibasilar scarring versus atelectasis. Electronically Signed: Jethro Miles MD at 23:52 EST ,
[2022-03-27 15:11] LABS: Hematocrit 39.2 % (37-47); Hemoglobin 12.2 g/dL (12.0-15.0); Mean Corp Hgb Conc 31.1 g/dL (32-36); Mean Corpuscular Hgb 27.8 pg (27.0-32.0); Mean Corpuscular Volume 89.3 fL (81-99); Mean Platelet Vol. 9.9 fl (6.2-12.0); Platelet Count 269 K/mm3 (150-450); RBC Distribution Width CV 16.3 % (11.6-14.6); RBC Distribution Width SD 52.8 fl (35.1-43.9); Red Blood Count 4.39 M/mm3 (4.2-5.4); White Blood Count 4.8 K/mm3 (4.4-11.0)
[2022-03-27 15:36] LABS: Anion Gap 6 (5-15); BUN 10 mg/dL (7-18); BUN/Creat Ratio 12.9 RATIO (10-20); Calcium,Total 9.2 mg/dL (8.5-10.1); Chloride 106 mmol/L (98-107); Creatinine, Serum 0.77 mg/dL (0.55-1.02); EST Glomerular Filtration Rate 76 mL/min (>60); Est Glom Filt Rate - Afr Amer 91 mL/min (>60); Glucose 147 mg/dL (74-106); Potassium 3.8 mmol/L (3.5-5.1); Sodium Level 140 mmol/L (136-145)
[2022-03-27 15:38] LABS: BNP,B-Type NATRIURETIC PEPTIDE 312.2 pg/mL (0-100)
== END | disposition home or self-care (01) ==
LOC: RAD 14:01
PROVIDERS: PCP Nurse Practitioner; Referring Provider Nurse Practitioner Family; Visit Provider Nurse Practitioner Family
DX: R06.02 Shortness of breath (principal); I51.89 Other ill-defined heart diseases; J06.9 Acute upper respiratory infection, unspecified; Z79.01 Long term (current) use of anticoagulants
CPT/HCPCS: 36415; 71046; 80048; 83880; 85027

== ENCOUNTER 2022-03-29 07:54 | Inpatient (IN) | payer MEDICARE, SELFPAY ==
[2022-03-29] VITALS (17 sets, daily range): BP systolic 130–171; BP diastolic 90–108; PULSE 93–120; RESP 18–25; TEMP 36.1–37.1; O2SAT 92–100; BMI 33.3; BMI 32.0
--- NOTE | 2022-03-29 08:06 | EDS_ITS ---
HPI History of Present Illness Chief Complaint: Shortness of Breath Informant: patient Onset/Context/Timing Onset: Weeks (1) Context: gradual Timing: Continuous Quality: Positive for Orthopnea Worsened by: Lying flat Relieved by: Nothing Associated Symptoms cough, ear pain, fever, subjective and chills; Negative for rhinorrhea, post nasal drip, sore throat, sweats, clear sputum, white sputum, yellow sputum or green sputum Chest Pain: Positive for Pressure and Tightness Narrative Narrative: She presents with shortness of breath that has been getting worse over the past week. Patient states it is gradually getting worse. Patient admits to a slight cough but denies any sputum production. Patient admits to subjective fevers and chills. Patient admits to some tightness and heaviness in her chest. Patient also admits to some right ear pain. Patient states her breathing is worse when she lays flat. Patient states she saw her science editor recently who prescribed her a diuretic because he felt she was developing some fluid retention. Patient does admit to some pain and and swelling in her right calf and knee. Patient states she has had a DVT in the past. Patient denies any nausea or vomiting. PE Risk Factors: Positive for Prior DVT or PE; Negative for Cancer, OCP + Smoking + > 35, Recent immobilization, Recent surgery or Recent travel [facility] Medical History Anxiety Arthritis Atrial fibrillation Back pain Cystitis without hematuria Diabetes type 2, uncontrolled Essential hypertension Fatigue Fibromyalgia Gout Knee pain Paroxysmal atrial fibrillation Pure hypercholesterolemia Rash of face Rheumatoid arthritis Rheumatoid arthritis Submental mass Home Medications omeprazole 20 mg capsule,delayed release 20 mg PO DAILY 08/23/20 [History Last Taken Unknown] allopurinol 100 mg tablet 100 mg PO BID #180 tabs 03/30/21 [Rx Last Taken Unknown] duloxetine 60 mg capsule,delayed release 60 mg PO DAILY depression #90 caps 03/30/21 [Rx Last Taken Unknown] flecainide 100 mg tablet 100 mg PO BID arrthymia #180 tabs 03/30/21 [Rx Last Taken Unknown] metformin 500 mg tablet 500 mg PO BID #180 tabs 03/30/21 [Rx Last Taken Unknown] acetaminophen 650 mg tablet,extended release (Tylenol Arthritis Pain) 1,300 mg PO Q12H 01/31/22 [History Last Taken Unknown] apixaban 5 mg tablet 5 mg PO BID blood thinner #180 tabs 02/06/22 [Rx Last Taken Unknown] folic acid 1 mg tablet 5 mg PO QWEEK 90 days #65 tabs 02/09/22 [Rx Last Taken Unknown] amoxicillin 875 mg-potassium clavulanate 125 mg tablet 1 tab PO BID #20 tabs 03/22/22 [Rx Last Taken Unknown] methotrexate sodium 10 mg tablet 10 mg PO QWEEK #12 tabs 03/22/22 [Rx Last Taken Unknown] flecainide 50 mg tablet 50 mg PO Q12H #60 tabs 03/27/22 [Rx Last Taken Unknown] metoprolol tartrate 50 mg tablet 100 mg PO BID #180 tabs 03/27/22 [Rx Last Taken Unknown] furosemide 40 mg tablet (Lasix) 40 mg PO DAILY #30 tabs 03/28/22 [Rx Last Taken Unknown] Allergy/AdvReac Type Severity Reaction Status Date / Time Sulfa (Sulfonamide Allergy Severe rash Verified 03/29/22 07:54 Antibiotics) contact metal agent Allergy NEEDS Verified 03/29/22 07:54 FOLLOW-UP lisinopril AdvReac Severe cough Verified 03/29/22 07:54 Family History (Reviewed 03/27/22 @ 15:00 by Glenn Gunn DIRECTOR UNDERWRITER SALES, DIRECTOR UND[employer]WRITER [employer]ES-[employer]) Father Heart disease Mother Heart disease Rheumatoid arthritis Sister No problems noted. Other CHF (congestive heart failure) Surgical History History of ankle surgery History of appendectomy History of bilateral hip replacements History of tonsillectomy Hx of foot surgery Social History Smoking Status: Never smoker alcohol intake: never substance use type: does not use caffeine: Yes Type: coffee Number of servings: 1 ROS ROS ED Constitutional Constitutional ED: Reports chills, fever(s) and subjective Eyes Eyes: Reports blurry vision; Denies diplopia ENT ENT ED: Reports ear pain right; Denies rhinorrhea or sore throat Cardiovascular Cardiovascular: Reports chest pain; Denies palpitations Respiratory/Chest Respiratory/Chest: Reports cough and dyspnea Gastrointestinal Gastrointestinal: Denies nausea or vomiting Genitourinary Genitourinary ED: Denies dysuria or hematuria Musculoskeletal Musculoskeletal: Reports back pain and neck pain Integumentary Denies abscess or rash Neurologic Neurologic: Denies headache(s) or weakness Allergic/Immunologic Allergic/Immunologic ED: Denies mouth swelling or urticaria EXAM Physical Exam Const Vital Signs: 03/29/22 07:55 03/29/22 07:57 03/29/22 07:59 Temperature 97.0 F L 97.0 F L Temperature Source Temporal Temporal Pulse Rate 93 99 Respiratory Rate 20 H 24 H Respiratory Effort Short of Breath Labored Respiratory Depth Normal Respiratory Pattern Tachypnea Blood Pressure 130/106 H 130/106 H Blood Pressure Mean 114 114 Pulse Ox 93 94 Oxygen Delivery Method Room Air Room Air Room Air Oxygen Flow Rate (L/min) 03/29/22 08:21 03/29/22 08:33 03/29/22 08:57 Temperature 98 F Temperature Source Temporal Pulse Rate 106 H Respiratory Rate 22 H Respiratory Effort Respiratory Depth Respiratory Pattern Blood Pressure 138/101 H Blood Pressure Mean 113 Pulse Ox 92 96 Oxygen Delivery Method Room Air Room Air Nasal Cannula Oxygen Flow Rate (L/min) 2 03/29/22 11:11 03/29/22 12:01 Temperature Temperature Source Pulse Rate 109 H Respiratory Rate 22 H Respiratory Effort Respiratory Depth Respiratory Pattern Blood Pressure 171/100 H Blood Pressure Mean 123 Pulse Ox 98 97 Oxygen Delivery Method Nasal Cannula Nasal Cannula Oxygen Flow Rate (L/min) 2 1 Positive well nourished and well developed General Appearance ED: well developed and NAD HEENT Reports moist mucous membranes Neck supple and no JVD Resp normal respiratory effort and clear to auscultation bilaterally Cardio regular rate and regular rhythm GI normal to inspection, nondistended, normoactive bowel sounds and non-tender Palpation: soft Extremity Extremity Narrative: There is tenderness and edema over the right knee and right calf. There is no bony crepitance or step-off. There is good range of motion. Pedal pulses are equal bilaterally. Neuro oriented x3, CN's II-XII intact bilaterally and no sensory deficits noted Sensorium / Orientation: alert Motor Exam: strength 5/5 throughout Psych mental status grossly normal Skin no rashes or lesions noted MDM MDM MDM Narrative Medical decision making narrative: Differential diagnosis includes congestive heart failure, COPD exacerbation, pulmonary embolism, pleural effusion, and anxiety. EKG was obtained. On my interpretation, it shows atrial fibrillation with a rate of 101. QRS interval was within normal limits. QTc interval was normal at 466 ms. [place] was normal at 18. There are no acute ST or T wave changes. Since the patient has risk factors for PE, CTA of the chest was obtained. On my independent interpretation, there is no evidence of pulmonary embolism. There is no pneumothorax. Radiologist also interpreted the CT scan and noted scarring at the lung bases. There is also some mild emphysematous changes. CBC was obtained and was reviewed. Hemoglobin was 11.5 and hematocrit 36.2. Remainder was within normal limits. Basic metabolic profile was obtained and was reviewed. Glucose was slightly elevated at 138. Electrolytes were within normal limits. Anion gap was normal. BNP was slightly elevated at 344. This was slightly increased from previous outpatient results 2 days ago. However, it is increased from previous outpatient results from 10/05/2021. High-sensitivity troponin was obtained and was reviewed. This is normal at 9. Patient states she does not wear oxygen at home. Patient was ambulated here in the emergency department. Even with 1 L nasal cannula, patient's oxygen saturation dropped to 83%. Case was discussed with the hospitalist. She will admit the patient to PCU. Patient understands and is agreeable with the plan. All questions were answered. Lab Data Labs: Laboratory Results - last 24 hr 03/29/22 03/29/22 03/29/22 08:25 08:25 08:25 WBC 5.7 RBC 4.02 L Hgb 11.5 L Hct 36.2 L MCV 90.0 MCH 28.6 MCHC 31.8 L RDW Std Deviation 52.7 H RDW Coeff of [place] 16.1 H Plt Count 222 MPV 9.1 Immature Gran % (Auto) 0.200 Neut % (Auto) 62.1 Lymph % (Auto) 27.9 [place] % (Auto) 7.1 Eos % (Auto) 2.5 Baso % (Auto) 0.2 Absolute Neuts (auto) 3.5 Absolute Lymphs (auto) 1.58 Nucleated RBC % 0 PT INR APTT Sodium 142 Potassium 3.9 Chloride 108 H Carbon Dioxide 28.0 Anion Gap 6 BUN 12 Creatinine 0.78 Estim Creat Clear Calc 33.12 Est GFR (MDRD) Af Amer 90 Est GFR (MDRD) Non-Af 75 BUN/Creatinine Ratio 15.3 Glucose 138 H Calcium 9.0 Troponin I High Sens 9 B-Natriuretic Peptide 344.1 H 03/29/22 08:25 WBC RBC Hgb Hct MCV MCH MCHC RDW Std Deviation RDW Coeff of [place] Plt Count MPV Immature Gran % (Auto) Neut % (Auto) Lymph % (Auto) [place] % (Auto) Eos % (Auto) Baso % (Auto) Absolute Neuts (auto) Absolute Lymphs (auto) Nucleated RBC % PT 16.0 H INR 1.3 APTT 32.1 Sodium Potassium Chloride Carbon Dioxide Anion Gap BUN Creatinine Estim Creat Clear Calc Est GFR (MDRD) Af Amer Est GFR (MDRD) Non-Af BUN/Creatinine Ratio Glucose Calcium Troponin I High Sens B-Natriuretic Peptide Radiography Diagnostic Testing: Clinical Impression(s) from Imaging Studies Chest CTA 03/29/22 08:16 IMPRESSION: No evidence of pulmonary embolism. Findings suggestive of a scarring at the lung bases. Mild degree of emphysematous changes. Electronically Signed: Ryan Jeffers MD at 10:21 EST , EKG Initial EKG: Attestation: I personally reviewed and interpreted this EKG as follows: Interpretation: No Acute Injury Pattern and Atrial Fibrillation (101) Prior EKG tracings: available for review Prior: Unchanged (03/27/2022) Discharge Plan Triage Chief Complaint: Shortness of Breath ED Provider: Diogenes Sullivan Dx/Rx/DC Orders Clinical Impression: Congestive heart failure, Hypoxia, Atrial fibrillation Prescriptions: No Action omeprazole 20 mg capsule,delayed release(DR/EC) 20 mg PO DAILY acetaminophen [Tylenol Arthritis Pain] 650 mg tablet extended release 1,300 mg PO Q12H metoprolol tartrate 50 mg tablet 100 mg PO BID Qty: 180 2RF flecainide 50 mg tablet 50 mg PO Q12H Qty: 60 0RF allopurinol 100 mg tablet 100 mg PO BID Qty: 180 3RF duloxetine 60 mg capsule,delayed release(DR/EC) 60 mg PO DAILY Qty: 90 3RF metformin 500 mg tablet 500 mg PO BID Qty: 180 3RF Rx Instructions: start 1 tab qd for 10 days then go to 2 x a day apixaban 5 mg tablet 5 mg PO BID Qty: 180 3RF amoxicillin-pot clavulanate 875-125 mg tablet 1 tab PO BID Qty: 20 0RF methotrexate sodium 10 mg tablet 10 mg PO QWEEK Qty: 12 3RF folic acid 1 mg tablet 5 mg PO QWEEK 90 Days Qty: 65 3RF Rx Instructions: take the day after the methotrexate furosemide [Lasix] 40 mg tablet 40 mg PO DAILY Qty: 30 0RF Primary Care Provider: Maria Del Carmen Case NP Referrals: Marai Del Carmen Case NP, DIRECTOR [employer] [Primary Care Provider] - Disposition Disposition: Acute Care [facility]
--- NOTE | 2022-03-29 08:16 | EKG12_ITS ---
Test Reason : SOB Blood Pressure : / mmHG Vent. Rate : 101 BPM Atrial Rate : 000 BPM P-R Int : 000 ms QRS Dur : 074 ms QT Int : 360 ms P-R-T Axes : 000 018 011 degrees QTc Int : 466 ms Atrial fibrillation with rapid ventricular response Abnormal ECG Confirmed by TEDDY MOORE, URIEL ([id number]), publications editor GERRY VILLAREAL ([id number]) on 03/30/2022 1:11:17 PM Referred By: ALLEGRA Confirmed By:CRISTY ESPINAL MD
--- NOTE | 2022-03-29 08:16 | CT_ITS ---
STUDY: CTA CHEST REASON FOR EXAM: Female, 82 years old. 2 week history of shortness of breath and dyspnea. Left-sided chest pain. RADIATION DOSAGE (If Supplied By Facility): CTDIvol = ( 14.59 ) mGy, DLP = ( 345.97 ) mGycm TECHNIQUE: The examination was performed with the intravenous administration of IV 100mL Isovue-370. Post-processing of the angiographic images was performed, with multiplanar reformation and 3D reconstruction. Individualized dose optimization techniques were used for this CT. COMPARISON: None. FINDINGS: Normal enhancement of the main pulmonary artery and right and left pulmonary arteries. Normal enhancement of the bilateral peripheral pulmonary arteries. There is no demonstrated pulmonary embolism. There is atherosclerotic calcification of the aortic arch with tortuosity. There is no demonstrated aortic dissection. There are calcifications of the coronary arteries. Normal mediastinum. Normal hilar regions. Normal visualized trachea and bronchi. The lungs are well expanded. Mild degree of the emphysematous changes. Increased markings at the lung bases with areas of confluence in the posterior segment of the right lower lobe suggestive of scarring and bronchiectasis. No focal consolidation is seen. Normal pleura. Normal chest wall structures. There are degenerative changes of thoracic spine. There is a 6.4 mm sclerotic density in the anterior inferior aspect of the T1 vertebrae. Small hiatal hernia. CT/CTA Chest W/WO Contrast IMPRESSION: No evidence of pulmonary embolism. Findings suggestive of a scarring at the lung bases. Mild degree of emphysematous changes. Electronically Signed: Ryan Jeffers MD at 10:21 EST ,
[2022-03-29] MEDS: Aspirin 81 MG TAB.CHEW 324 MG PO (08:29)
[2022-03-29 08:33] LABS: Absolute Lymphocyte Count 1.58 X10^3/uL (0.83-4.51); Absolute Neutrophil Count 3.5 X10^3/uL (2.0-7.7); Basophil# 0.01 X10^3/uL; Basophil% 0.2 % (0-1); Eosinophil# 0.14 X10^3/uL; Eosinophils% 2.5 % (0-5); Hematocrit 36.2 % (37-47); Hemoglobin 11.5 g/dL (12.0-15.0); Lymphocyte # 1.58 X10^3/ul (0.83-4.51); Lymphocyte % 27.9 % (19-41); Mean Corp Hgb Conc 31.8 g/dL (32-36); Mean Corpuscular Hgb 28.6 pg (27.0-32.0); Mean Platelet Vol. 9.1 fl (6.2-12.0); Monocyte% 7.1 % (0-10); NRBC Flagged by Analyzer 0 % (0-5); Neutrophil # 3.52 X10^3/uL (2.7-7.7); Neutrophil % 62.1 % (47-70); Platelet Count 222 K/mm3 (150-450); RBC Distribution Width CV 16.1 % (11.6-14.6); RBC Distribution Width SD 52.7 fl (35.1-43.9); Red Blood Count 4.02 M/mm3 (4.2-5.4); White Blood Count 5.7 K/mm3 (4.4-11.0)
[2022-03-29 08:40] LABS: International Normalized Ratio 1.3
[2022-03-29 08:41] LABS: Partial Thromboplast Time 32.1 Seconds (24.1-36.2)
[2022-03-29 08:48] LABS: Anion Gap 6 (5-15); BUN 12 mg/dL (7-18); BUN/Creat Ratio 15.3 RATIO (10-20); Chloride 108 mmol/L (98-107); Creatinine, Serum 0.78 mg/dL (0.55-1.02); EST Glomerular Filtration Rate 75 mL/min (>60); Est Glom Filt Rate - Afr Amer 90 mL/min (>60); Estimated Creatinine Clearance 33.12 ml/min; Glucose 138 mg/dL (74-106); Potassium 3.9 mmol/L (3.5-5.1); Sodium Level 142 mmol/L (136-145); Troponin-I HS 9 pg/mL (3.0-54.0)
[2022-03-29 08:54] LABS: BNP,B-Type NATRIURETIC PEPTIDE 344.1 pg/mL (0-100)
--- NOTE | 2022-03-29 12:00 | NURSING ---
DR SCOTT FOR DR DINH
--- NOTE | 2022-03-29 12:07 | HP.PCM.HOS_ITS ---
HPI - General General Date of Admission: 03/29/22 Date of Service: 03/29/22 Chief Complaint: SOB - 4 days HPI Narrative BALWINDER ORELLANA, is a 82 F who presents with the above. Patient has medical history of paroxysmal atrial fibrillation, chronic heart failure with preserved EF. Patient was last seen at cardiology office on 115 2022. She had complained of shortness of breath ongoing for a few weeks. She stopped taking her flecainide 4 days. She was found to be in A. fib with RVR. She was asked to take her flecainide and increase her metoprolol from 50 mg twice daily to 100 mg twice daily. Lasix was prescribed for her but she did not pick it up from her pharmacy because it was 4 hours from her home and she did not have anybody to pick it up. She comes to the emergency room today because she is progressively short of breath. She denied any chest pain. Her heart rate is slightly elevated. She denied any dizziness or palpitation but she admits to dyspnea with exertion and short distances. Her vitals in the ED showed blood pressure 130/106, heart rate 93, respiratory rate 20, temperature 97.0 F, oxygen sat 93% on room air. WBC count is 5.7, hemoglobin is 11.5, plt 222. INR 1.3, BMP is unremarkable. BNpep 344.1. Troponin 9. PFSH Medical History Anxiety Arthritis Atrial fibrillation Back pain Cystitis without hematuria Diabetes type 2, uncontrolled Essential hypertension Fatigue Fibromyalgia Gout Knee pain Paroxysmal atrial fibrillation Pure hypercholesterolemia Rash of face Rheumatoid arthritis Rheumatoid arthritis Submental mass Home Medications omeprazole 20 mg capsule,delayed release 20 mg PO DAILY acid reflux 08/23/20 [History Last Taken 03/28/22] duloxetine 60 mg capsule,delayed release 60 mg PO DAILY depression #90 caps 03/30/21 [Rx Last Taken 03/28/22] flecainide 100 mg tablet 100 mg PO BID arrthymia #180 tabs 03/30/21 [Rx Last Taken Unknown] acetaminophen 650 mg tablet,extended release (Tylenol Arthritis Pain) 1,300 mg PO Q12H pain 01/31/22 [History Last Taken 03/28/22] apixaban 5 mg tablet 5 mg PO BID blood thinner #180 tabs 02/06/22 [Rx Last Taken 03/28/22] allopurinol 100 mg tablet 100 mg PO QHS gout 03/29/22 [History Last Taken 03/28/22] amoxicillin 875 mg-potassium clavulanate 125 mg tablet 1 tab PO BID ANTIBIOTIC 03/29/22 [History Last Taken 03/28/22] ascorbic acid (vitamin C) 500 mg tablet 500 mg PO DAILY SUPPLEMENT 03/29/22 [History Last Taken 03/28/22] cholecalciferol (vitamin D3) 25 mcg (1,000 unit) tablet 25 mcg PO DAILY SUPPLEMENT 03/29/22 [History Last Taken 03/28/22] cyanocobalamin (vitamin B-12) 1,000 mcg tablet (Vitamin B-12) 1,000 mcg PO DAILY SUPPLEMENT 03/29/22 [History Last Taken 03/28/22] ferrous gluconate 324 mg (37.5 mg iron) tablet 648 mg PO DAILY SUPPLEMENT 03/29/22 [History Last Taken 03/28/22] flecainide 50 mg tablet 50 mg PO BID ARRHYTHMIA 03/29/22 [History Last Taken 03/28/22] folic acid 1 mg tablet 5 mg PO LEWIS 03/29/22 [History Last Taken 03/26/22] furosemide 20 mg tablet 20 mg PO BID FLUID 03/29/22 [History Last Taken 03/28/22] magnesium oxide 800 mg PO DAILY SUPPLEMENT 03/29/22 [History Last Taken 03/28/22] metformin 500 mg tablet 500 mg PO BID blood sugars 03/29/22 [History Last Taken 03/28/22] methotrexate sodium 2.5 mg tablet 20 mg PO SA RHEUMATOID ARTHRITIS 03/29/22 [History Last Taken 03/25/22] metoprolol tartrate 50 mg tablet 100 mg PO BID BLOOD PRESSURE 03/29/22 [History Last Taken 03/28/22] vitamin E mixed 400 unit tablet 400 unit PO DAILY SUPPLEMENT 03/29/22 [History Last Taken 03/28/22] Allergy/AdvReac Type Severity Reaction Status Date / Time Sulfa (Sulfonamide Allergy Severe rash Verified 03/29/22 07:54 Antibiotics) contact metal agent Allergy NEEDS Verified 03/29/22 07:54 FOLLOW-UP lisinopril AdvReac Severe cough Verified 03/29/22 07:54 Family History Father Heart disease Mother Heart disease Rheumatoid arthritis Sister No problems noted. Other CHF (congestive heart failure) Surgical History History of ankle surgery History of appendectomy History of bilateral hip replacements History of tonsillectomy Hx of foot surgery Social History Smoking Status: Never smoker alcohol intake: never substance use type: does not use caffeine: Yes Type: coffee Number of servings: 1 ROS ROS Narrative Constitutional: Reports: Malaise, Weakness, Fatigue. Denies: Anorexia, Chills, Fever, Night Sweats, Weight Change Eyes: Denies: Blurred vision, Cataracts, Conjunctivae Inflammation, Pain, Redness, Vision Change HEENT: Denies: Difficulty Hearing, Difficulty Swallowing, Head Aches, Hearing Changes, Sinus Congestion, Sinus Drainage Cardiovascular: See HPI Respiratory: Denies: Cough, Shortness of breath at rest, Sputum production Gastrointestinal: Denies: Abdominal Pain, Nausea, Vomiting Genitourinary: Denies: Dysuria Musculoskeletal: Denies: Joint Pain, Joint stiffness, Joint swelling, Joint Tenderness Skin: Denies: Rash, Wounds Neurological: Denies: Numbness, Tingling, Focal weakness Vital Signs Vital Signs Vital Signs: 03/29/22 07:55 03/29/22 07:57 03/29/22 07:59 Temperature 97.0 F L 97.0 F L Temperature Source Temporal Temporal Pulse Rate 93 99 Respiratory Rate 20 H 24 H Respiratory Effort Short of Breath Labored Respiratory Depth Normal Respiratory Pattern Tachypnea Blood Pressure 130/106 H 130/106 H Blood Pressure Mean 114 114 Pulse Ox 93 94 Oxygen Delivery Method Room Air Room Air Room Air Oxygen Flow Rate (L/min) 03/29/22 08:21 03/29/22 08:33 03/29/22 08:57 Temperature 98 F Temperature Source Temporal Pulse Rate 106 H Respiratory Rate 22 H Respiratory Effort Respiratory Depth Respiratory Pattern Blood Pressure 138/101 H Blood Pressure Mean 113 Pulse Ox 92 96 Oxygen Delivery Method Room Air Room Air Nasal Cannula Oxygen Flow Rate (L/min) 2 03/29/22 11:11 03/29/22 12:01 Temperature Temperature Source Pulse Rate 109 H Respiratory Rate 22 H Respiratory Effort Respiratory Depth Respiratory Pattern Blood Pressure 171/100 H Blood Pressure Mean 123 Pulse Ox 98 97 Oxygen Delivery Method Nasal Cannula Nasal Cannula Oxygen Flow Rate (L/min) 2 1 Weight Weight: 82.8 kg Body Mass Index (BMI) 33.3 Physical Exam Narrative Physical exam: General: Alert, Oriented x3, Cooperative, on 2 L of oxygen HEENT: Atraumatic Oral: Moist Mucosa Neck: Supple Lungs:Diminished to auscultation, crackles at both lung bases Cardiovascular: HS I+II, regular, no murmurs Abdomen: Bowel Sounds Present, Soft, Non Tender Extremities: Bilateral leg edema +1 Skin: No rashes, No breakdown Neurological: Grossly intact Psych/Mental Status: Appropriate Results Lab / Micro Data Result Diagrams: 03/29/22 08:25 03/29/22 08:25 Labs: Laboratory Results - last 24 hr 03/29/22 08:25: WBC 5.7, RBC 4.02 L, Hgb 11.5 L, Hct 36.2 L, MCV 90.0, MCH 28.6, MCHC 31.8 L, RDW Std Deviation 52.7 H, RDW Coeff of [place] 16.1 H, Plt Count 222, MPV 9.1, Immature Gran % (Auto) 0.200, Neut % (Auto) 62.1, Lymph % (Auto) 27.9, [place] % (Auto) 7.1, Eos % (Auto) 2.5, Baso % (Auto) 0.2, Absolute Neuts (auto) 3.5, Absolute Lymphs (auto) 1.58, Nucleated RBC % 0 03/29/22 08:25: Sodium 142, Potassium 3.9, Chloride 108 H, Carbon Dioxide 28.0, Anion Gap 6, BUN 12, Creatinine 0.78, Estim Creat Clear Calc 33.12, Est GFR (MDRD) Af Amer 90, Est GFR (MDRD) Non-Af 75, BUN/Creatinine Ratio 15.3, Glucose 138 H, Calcium 9.0, Troponin I High Sens 9 03/29/22 08:25: B-Natriuretic Peptide 344.1 H 03/29/22 08:25: PT 16.0 H, INR 1.3, APTT 32.1 Micro: Microbiology 03/29/22 08:25 Nasal Secretion SARS-CoV-2 & FLU Antigen (Rapid) - Final Radiology Impression Chest CTA 03/29/22 08:16 IMPRESSION: No evidence of pulmonary embolism. Findings suggestive of a scarring at the lung bases. Mild degree of emphysematous changes. Electronically Signed: Ryan Jeffers MD at 10:21 EST , Assessment & Plan Assessment/Plan (1) Hypoxia: (2) Congestive heart failure: PLAN: Plan 1. Acute hypoxia secondary to acute exacerbation of heart failure preserved EF, EF 70%, stage II diastolic dysfunction Patient is on 2L oxygen 2. A. fib with RVR, patient has not taken her medication this morning Will resume per on her flecainide and metoprolol Patient is already on Eliquis, continue to monitor 3. Acute exacerbation of heart failure with preserved EF, EF 70%, stage II diastolic dysfunction Patient has clinical evidence of mild fluid overload with crackles at the lung bases We will continue on IV Lasix, strict I's and O's, CHF protocol 4. Type II DM, on metformin, hold metformin Will start with blood glucose checks and insulin sliding scale 5. Rheumatoid arthritis, continue methotrexate, folic acid 6. DVT PPx- on Eliquis Code status - DNR-CCA, no intubation Charges/Coding Visit Charges Inpatient E&M: 54898 Subs Hosp L2
[2022-03-29] MEDS: Furosemide 40 MG/4 ML Vial IV ×2 (12:32→17:55)
[2022-03-29] MEDS: Metoprolol Tartrate 100 MG Tablet PO ×2 (14:35→21:03)
[2022-03-29] MEDS: Flecainide 100 MG Tablet 50 MG PO ×2 (15:05→21:03)
[2022-03-29 16:30] LABS: Bedside Glucose 147 mg/dL (74-106)
[2022-03-29 17:01] LABS: Bedside Glucose 125 mg/dL (74-106)
[2022-03-29] MEDS: 0.9% Saline Lock 10 ML Syringe IV (17:55)
[2022-03-29] MEDS: Acetaminophen 500 MG Tablet 1000 MG PO (21:03)
[2022-03-29] MEDS: Allopurinol 100 MG Tablet PO (21:04)
[2022-03-29] MEDS: APIXABAN 5 MG TABLET PO (21:04)
[2022-03-29 23:00] LABS: Bedside Glucose 134 mg/dL (74-106)
[2022-03-30] VITALS (9 sets, daily range): BP systolic 102–133; BP diastolic 72–106; PULSE 70–102; RESP 18; TEMP 36.6–37.4; O2SAT 84–95
[2022-03-30 04:43] LABS: Absolute Lymphocyte Count 2.14 X10^3/uL (0.83-4.51); Absolute Neutrophil Count 2.8 X10^3/uL (2.0-7.7); Basophil# 0.03 X10^3/uL; Basophil% 0.5 % (0-1); Eosinophil# 0.14 X10^3/uL; Eosinophils% 2.6 % (0-5); Hematocrit 38.9 % (37-47); Hemoglobin 12.2 g/dL (12.0-15.0); Lymphocyte # 2.14 X10^3/ul (0.83-4.51); Mean Corp Hgb Conc 31.4 g/dL (32-36); Mean Corpuscular Volume 89.2 fL (81-99); Mean Platelet Vol. 10.3 fl (6.2-12.0); Monocyte# 0.41 X10^3/uL; Monocyte% 7.5 % (0-10); NRBC Flagged by Analyzer 0 % (0-5); Neutrophil # 2.76 X10^3/uL (2.7-7.7); Neutrophil % 50.2 % (47-70); Platelet Count 272 K/mm3 (150-450); RBC Distribution Width CV 16.3 % (11.6-14.6); RBC Distribution Width SD 52.5 fl (35.1-43.9); Red Blood Count 4.36 M/mm3 (4.2-5.4); White Blood Count 5.5 K/mm3 (4.4-11.0)
[2022-03-30 05:08] LABS: AST(SGOT) 10 U/L (15-37); Alanine Aminotransfer ALT/SGPT 22 U/L (13-56); Albumin, Serum 3.5 g/dL (3.2-5.0); Alkaline Phosphatase 77 U/L (45-117); Anion Gap 8 (5-15); BUN 20 mg/dL (7-18); BUN/Creat Ratio 21.1 RATIO (10-20); Calcium,Total 8.9 mg/dL (8.5-10.1); Chloride 100 mmol/L (98-107); Creatinine, Serum 0.95 mg/dL (0.55-1.02); EST Glomerular Filtration Rate 60 mL/min (>60); Est Glom Filt Rate - Afr Amer 72 mL/min (>60); Estimated Creatinine Clearance 34.86 ml/min; Globulin 3.4 g/dL (2.2-4.2); Glucose 129 mg/dL (74-106); Potassium 3.8 mmol/L (3.5-5.1); Protein, Total 6.9 g/dL (6.4-8.2); Sodium Level 139 mmol/L (136-145)
[2022-03-30 07:00] LABS: Bedside Glucose 116 mg/dL (74-106)
[2022-03-30] MEDS: Senna/Docusate Sodium 1 Tablet 2 TABLET PO (07:44)
[2022-03-30] MEDS: guaiFENesin 10 ML UDC (200MG/10ML) 20 ML PO (07:44)
[2022-03-30] MEDS: Ferrous Gluconate 324 MG Tablet 648 MG PO (07:47)
[2022-03-30] MEDS: Vitamin E 400 UNITS Capsule PO (07:47)
[2022-03-30] MEDS: DULoxetine Hcl 60 MG Capsule PO (09:17)
[2022-03-30] MEDS: Acetaminophen 500 MG Tablet 1000 MG PO ×2 (09:17→21:04)
[2022-03-30] MEDS: Metoprolol Tartrate 100 MG Tablet PO ×2 (09:17→21:05)
[2022-03-30] MEDS: Cyanocobalamin 500 MCG Tablet 1000 MCG PO (09:17)
[2022-03-30] MEDS: Ascorbic Acid 500 MG Tablet PO (09:17)
[2022-03-30] MEDS: Cholecalciferol (VIT D3) 25 MCG TABLET (1,000 UNITS) PO (09:17)
[2022-03-30] MEDS: Furosemide 40 MG/4 ML Vial IV ×2 (09:17→16:58)
[2022-03-30] MEDS: Magnesium Chloride 64 MG Delay Rel.Tablet 128 MG PO (09:17)
[2022-03-30] MEDS: APIXABAN 5 MG TABLET PO ×2 (09:18→21:05)
[2022-03-30] MEDS: Pantoprazole Sodium 20 MG Tablet PO (09:18)
[2022-03-30] MEDS: Flecainide 100 MG Tablet 50 MG PO ×2 (09:24→21:04)
--- NOTE | 2022-03-30 11:26 | PCM.PN.HOSP ---
Subjective Subjective Follow-up on acute hypoxia/acute on chronic diastolic CHF/A. fib with RVR: Patient was seen and examined. Heart rate is controlled. She is saturating well on room air. She however required solicitous of oxygen on exertion. Objective Data Objective Data Vital Signs: Vital Signs Temp Pulse Resp BP Pulse Ox O2 Del Method O2 Flow Rate 98.4 F 102 H 18 106/89 H 93 Room Air 4 03/30/22 09:15 03/30/22 09:17 03/30/22 09:15 03/30/22 09:15 03/30/22 09:15 03/30/22 09:15 03/30/22 08:37 Oxygen Flow Rate (L/min) [ 6 AMBULATING with Oxygen #2] Oxygen Flow Rate (L/min) [ 4 AMBULATING with Oxygen #1] Oxygen Flow Rate (L/min) 3 Oxygen Delivery Method Room Air Weight: 78.9 kg Body Mass Index (BMI) 32.0 Intake & Output: Intake and Output for Last 24 Hours 03/28/22 03/29/22 03/30/22 23:59 23:59 23:59 Intake Total 500 / 500 Balance 500 / 500 Lab / Micro Data Result Diagrams: 03/30/22 03:50 03/30/22 03:50 Labs: Laboratory Results - last 24 hr 03/29/22 16:12: POC Glucose 147 H 03/29/22 16:43: POC Glucose 125 H 03/29/22 20:59: POC Glucose 134 H 03/30/22 03:50: WBC 5.5, RBC 4.36, Hgb 12.2, Hct 38.9, MCV 89.2, MCH 28.0, MCHC 31.4 L, RDW Std Deviation 52.5 H, RDW Coeff of [place] 16.3 H, Plt Count 272, MPV 10.3, Immature Gran % (Auto) 0.200, Neut % (Auto) 50.2, Lymph % (Auto) 39.0, [place] % (Auto) 7.5, Eos % (Auto) 2.6, Baso % (Auto) 0.5, Absolute Neuts (auto) 2.8, Absolute Lymphs (auto) 2.14, Nucleated RBC % 0 03/30/22 03:50: Sodium 139, Potassium 3.8, Chloride 100, Carbon Dioxide 31.0, Anion Gap 8, BUN 20 H, Creatinine 0.95, Estim Creat Clear Calc 34.86, Est GFR (MDRD) Af Amer 72, Est GFR (MDRD) Non-Af 60, BUN/Creatinine Ratio 21.1 H, Glucose 129 H, Calcium 8.9, Total Bilirubin 0.70, AST 10 L, ALT 22, Alkaline Phosphatase 77, Total Protein 6.9, Albumin 3.5, Globulin 3.4, Albumin/Globulin Ratio 1.0 03/30/22 06:38: POC Glucose 116 H Micro: Microbiology 03/29/22 08:25 Nasal Secretion SARS-CoV-2 & FLU Antigen (Rapid) - Final Physical Exam Narrative Physical exam: General: Alert, Oriented x3, Cooperative, on room air HEENT: Atraumatic Oral: Moist Mucosa Neck: Supple Lungs:Diminished to auscultation, crackles at both lung bases Cardiovascular: HS I+II, regular, no murmurs Abdomen: Bowel Sounds Present, Soft, Non Tender Extremities: Bilateral leg edema +1 Skin: No rashes, No breakdown Neurological: Grossly intact Psych/Mental Status: Appropriate Assessment & Plan Assessment/Plan (1) Hypoxia: (2) Congestive heart failure: PLAN: Plan 1. Acute hypoxia secondary to acute exacerbation of heart failure preserved EF, EF 70%, stage II diastolic dysfunction Off oxygen, did require 6 L with exertion Continue CHF management, wean off for SPO2 more than 94 2. A. fib with RVR, rate controlled now Continue flecainide, metoprolol, 3. Acute exacerbation of heart failure with preserved EF, EF 70%, stage II diastolic dysfunction Slowly improving, continue IV Lasix, strict I's and O's, CHF protocol 4. Type II DM, on metformin, hold metformin Will start with blood glucose checks and insulin sliding scale 5. Rheumatoid arthritis, continue methotrexate, folic acid 6. DVT PPx- on Eliquis Code status - DNR-CCA, no intubation Charges/Coding Visit Charges Inpatient E&M: 90904 Subs Hosp L2
[2022-03-30 11:35] LABS: Bedside Glucose 123 mg/dL (74-106)
[2022-03-30] MEDS: Sodium Chloride 0.65% 1 SPRAY SPRAY.BTL 2 SPRAY NASAL (12:11)
--- NOTE | 2022-03-30 13:40 | CASEMGMT ---
RN CM Face to Face with patient for initial transition planning/care coordination assessment. RN CM introduced self and role at [facility]. Patient lying in bed, alert and oriented. Patient willing to participate in assessment and is able to answer all questions appropriately. Care providers, pharmacy, and demographics verified. Patient wishes to discharge home, denies need for home health at this time. Patient states he has no further needs or concerns at this time. CM to follow for discharge planning needs that may arise. PCP: Manpreet MOORE Specialists: Ja wic site coordinator Preferred Pharmacy: [facility] Insurance: [facility] Prescription Benefit: yes Living Will/HPOA: yes, son Clarence Weems LNOK: son Living Arrangements: Patient lives alone in a 2 story home with bed and bath on the first floor. 2 steps and railing to enter the home. Transportation: self, son, neighbor DME/HHC: Patient states she has shower chair, cane, grab bars, walker at home. Patient has previously been to [place]. No previous [facility] Disposition Plan: Patient to discharge home with family support and follow-up plans in place. Nasra RUSH, RN, CM
[2022-03-30] MEDS: 0.9% Saline Lock 10 ML Syringe IV ×2 (16:58→21:06)
[2022-03-30 17:21] LABS: Bedside Glucose 157 mg/dL (74-106)
[2022-03-30] MEDS: Allopurinol 100 MG Tablet PO (21:04)
[2022-03-30 22:16] LABS: Bedside Glucose 140 mg/dL (74-106)
[2022-03-31] VITALS (7 sets, daily range): BP systolic 108–136; BP diastolic 74–100; PULSE 75–93; RESP 18; TEMP 36.7–37; O2SAT 90–97
[2022-03-31 07:05] LABS: Bedside Glucose 139 mg/dL (74-106)
[2022-03-31] MEDS: Acetaminophen 500 MG Tablet 1000 MG PO ×2 (08:59→21:02)
[2022-03-31] MEDS: Cyanocobalamin 500 MCG Tablet 1000 MCG PO (08:59)
[2022-03-31] MEDS: Cholecalciferol (VIT D3) 25 MCG TABLET (1,000 UNITS) PO (09:00)
[2022-03-31] MEDS: Flecainide 100 MG Tablet 50 MG PO (09:00)
[2022-03-31] MEDS: Vitamin E 400 UNITS Capsule PO (09:00)
[2022-03-31] MEDS: Ferrous Gluconate 324 MG Tablet 648 MG PO (09:00)
[2022-03-31] MEDS: Magnesium Chloride 64 MG Delay Rel.Tablet 128 MG PO (09:00)
[2022-03-31] MEDS: Metoprolol Tartrate 100 MG Tablet PO ×2 (09:00→21:03)
[2022-03-31] MEDS: Pantoprazole Sodium 20 MG Tablet PO (09:00)
[2022-03-31] MEDS: DULoxetine Hcl 60 MG Capsule PO (09:03)
[2022-03-31] MEDS: 0.9% Saline Lock 10 ML Syringe IV ×3 (09:03→21:04)
[2022-03-31] MEDS: Ascorbic Acid 500 MG Tablet PO (09:03)
[2022-03-31] MEDS: Furosemide 40 MG/4 ML Vial IV ×2 (09:04→17:05)
[2022-03-31] MEDS: APIXABAN 5 MG TABLET PO ×2 (09:05→21:02)
--- NOTE | 2022-03-31 11:20 | PN.HOSP_ITS ---
Subjective Subjective Follow-up on acute hypoxia/acute on chronic diastolic CHF/A. fib with RVR: Patient was seen and examined.? Patient heart rate is erratic. It was elevated to more than 160s with minimal exertion. Patient had a presyncopal episode with it. It appeared to be rate controlled at the time of being seen. She did rece bruno her metoprolol and flecainide this morning. Objective Data Objective Data Vital Signs: Vital Signs Temp Pulse Resp BP Pulse Ox O2 Del Method O2 Flow Rate 98.1 F 93 18 121/91 H 97 Room Air 4 03/31/22 08:53 03/31/22 09:00 03/31/22 08:53 03/31/22 09:00 03/31/22 08:53 03/31/22 08:53 03/30/22 08:37 Oxygen Flow Rate (L/min) [ 6 AMBULATING with Oxygen #2] Oxygen Flow Rate (L/min) [ 4 AMBULATING with Oxygen #1] Oxygen Flow Rate (L/min) 3 Oxygen Delivery Method Room Air Weight: 78.9 kg Body Mass Index (BMI) 32.0 Intake & Output: Intake and Output for Last 24 Hours 03/29/22 03/30/22 03/31/22 23:59 23:59 23:59 Intake Total 500 / 500 800 / 800 Output Total 1500 / 1500 100 / 100 Balance 500 / 500 -700 / -700 -100 / -100 Lab / Micro Data Result Diagrams: 03/30/22 03:50 03/30/22 03:50 Labs: Laboratory Results - last 24 hr 03/30/22 11:12: POC Glucose 123 H 03/30/22 16:56: POC Glucose 157 H 03/30/22 20:59: POC Glucose 140 H 03/31/22 06:44: POC Glucose 139 H Micro: Microbiology 03/29/22 08:25 Nasal Secretion SARS-CoV-2 & FLU Antigen (Rapid) - Final Physical Exam Narrative Physical exam: General: Alert, Oriented x3, Cooperative, on room air HEENT: Atraumatic Oral: Moist Mucosa Neck: Supple Lungs:Diminished to auscultation Cardiovascular: HS I+II, regular, no murmurs Abdomen: Bowel Sounds Present, Soft, Non Tender Extremities: Bilateral leg edema +1 Skin: No rashes, No breakdown Neurological: Grossly intact Psych/Mental Status: Appropriate Assessment & Plan Assessment/Plan (1) Hypoxia: (2) Congestive heart failure: PLAN: Plan 1. Acute hypoxia secondary to acute exacerbation of heart failure preserved EF, EF 70%, stage II diastolic dysfunction Off oxygen, on room air Continue CHF management, wean off for SPO2 more than 94 2. A. fib with RVR, appears not to be controlled, occasionally in RVR Continue flecainide, metoprolol, Will consult cardiology consult for recommendations 3. Acute exacerbation of heart failure with preserved EF, EF 70%, stage II diastolic dysfunction Slowly improving, continue IV Lasix, strict I's and O's, CHF protocol 4. Type II DM, on metformin, hold metformin Will continue blood glucose checks and insulin sliding scale 5. Rheumatoid arthritis, continue methotrexate, folic acid 6. DVT PPx- on Eliquis Charges/Coding Visit Charges Inpatient E&M: 12965 Subs Hosp L2
[2022-03-31 11:25] LABS: Bedside Glucose 259 mg/dL (74-106)
[2022-03-31] MEDS: Insulin Lispro 100 UNIT/ML INSULN.PEN SC ×2 (11:40→21:02)
--- NOTE | 2022-03-31 12:34 | CASEMGMT ---
Social Work Pt does not have LW/POA information in [facility]. Pt declined further information upon admission. OBI Steen
--- NOTE | 2022-03-31 13:55 | RAD_ITS ---
STUDY: X-RAY - THORACIC SPINE REASON FOR EXAM: Female, 82 years old. Acute on chronic back pain TECHNIQUE: 2 view(s) of the thoracic spine were obtained. COMPARISON: None. FINDINGS: There is an increase in the normal thoracic kyphosis. Dextroscoliosis There is demineralization of the thoracic spine with endplate spondylosis. There is multilevel disc space narrowing of the thoracic spine. 50% loss of right upper and lower dorsal vertebrae. Filter is seen within the inferior vena cava. RAD/Thoracic Spine 2 Views IMPRESSION: Dextroscoliosis. Multilevel spondylosis and disc space narrowing with loss of height of a lower dorsal vertebrae. Electronically Signed: Ryan Jeffers MD at 14:53 EST ,
[2022-03-31 14:41] LABS: Absolute Lymphocyte Count 1.87 X10^3/uL (0.83-4.51); Absolute Neutrophil Count 3.2 X10^3/uL (2.0-7.7); Basophil# 0.03 X10^3/uL; Basophil% 0.5 % (0-1); Eosinophil# 0.14 X10^3/uL; Eosinophils% 2.4 % (0-5); Hematocrit 41.4 % (37-47); Hemoglobin 12.9 g/dL (12.0-15.0); Lymphocyte # 1.87 X10^3/ul (0.83-4.51); Lymphocyte % 32.5 % (19-41); Mean Corp Hgb Conc 31.2 g/dL (32-36); Mean Corpuscular Hgb 27.9 pg (27.0-32.0); Mean Corpuscular Volume 89.4 fL (81-99); Mean Platelet Vol. 9.7 fl (6.2-12.0); Monocyte# 0.46 X10^3/uL; NRBC Flagged by Analyzer 0 % (0-5); Neutrophil # 3.24 X10^3/uL (2.7-7.7); Neutrophil % 56.3 % (47-70); Platelet Count 340 K/mm3 (150-450); RBC Distribution Width CV 16.3 % (11.6-14.6); RBC Distribution Width SD 52.1 fl (35.1-43.9); Red Blood Count 4.63 M/mm3 (4.2-5.4); White Blood Count 5.8 K/mm3 (4.4-11.0)
[2022-03-31 15:01] LABS: ALB/GLOB Ratio 1.1 RATIO (0.9-2.4); AST(SGOT) 15 U/L (15-37); Alanine Aminotransfer ALT/SGPT 22 U/L (13-56); Albumin, Serum 3.8 g/dL (3.2-5.0); Alkaline Phosphatase 84 U/L (45-117); Anion Gap 6 (5-15); BUN 25 mg/dL (7-18); Chloride 98 mmol/L (98-107); Creatinine, Serum 1.19 mg/dL (0.55-1.02); EST Glomerular Filtration Rate 46 mL/min (>60); Est Glom Filt Rate - Afr Amer 56 mL/min (>60); Estimated Creatinine Clearance 27.83 ml/min; Globulin 3.6 g/dL (2.2-4.2); Glucose 211 mg/dL (74-106); Potassium 3.5 mmol/L (3.5-5.1); Protein, Total 7.4 g/dL (6.4-8.2); Sodium Level 137 mmol/L (136-145)
[2022-03-31] MEDS: oxyCODONE 5 MG Tablet 2.5 MG PO (15:12)
[2022-03-31 16:20] LABS: Bedside Glucose 149 mg/dL (74-106)
--- NOTE | 2022-03-31 17:30 | CON.PCM.CA_ITS ---
Assessment & Plan Assessment/Plan (1) Atrial fibrillation: PLAN: Patient presents with paroxysmal atrial fibrillation. At this time its not clear whether exact precipitating factor is. She has been on anticoagulation. * I would recommend continuing her beta-kurt * At her age even though her stress test is normal my suspicion is that she does have some underlying coronary disease. I am hesitant to increase her flecainide and we will therefore discontinue this. * I would like to start her on amiodarone 200 mg 3 times a day. If this does not result in conversion to sinus rhythm perhaps we would relegate her to rate control only. * We should continue to monitor her to see how she does. (2) Grade II diastolic dysfunction: PLAN: She does have evidence of diastolic dysfunction. Her last ejection fraction was preserved. We will recommend continuing medical therapy with intermittent dose diuretic. (3) Essential hypertension: PLAN: Her blood pressure is under good control at this time and no major changes will be made. She will remain on the beta-kurt with the metoprolol at 100 mg twice a day. Thank you for allowing me to participate in the care of your patient. Please don't hesitate to call if any issues arise. HPI Consult Data Date of Consult: 03/31/22 HPI Narrative HPI Narrative: BALWINDER ORELLANA, is a 82 F who presented to the emergency room with shortness of breath and palpitations. She has a history of hypertension as well as atrial fibrillation with rapid ventricular response rate. Her initial diagnosis was in 2017 when she presented with near syncope. She was placed on medication at that time and then was readmitted in August 2020 with atrial fibrillation. An echocardiogram performed at that time demonstrated preserved ejection fraction of 65%, mildly enlarged left atrium and right ventricular systolic pressure of 45 mmHg. She has since been doing well on her current medication but has followed up in the office and was recently in the office complaining of cough, shortness of breath but denying orthopnea and weight gain. She had apparently been on flecainide but discontinued it a few days prior to presentation in the office. She has not had any neck arm or jaw discomfort suggest angina. During this admission she was noted to be in atrial fibrillation with rapid ventricular response rate again and cardiology was called for an opinion. [facility] Medical History Anxiety Arthritis Atrial fibrillation Back pain Cystitis without hematuria Diabetes type 2, uncontrolled Essential hypertension Fatigue Fibromyalgia Gout Knee pain Paroxysmal atrial fibrillation Pure hypercholesterolemia Rash of face Rheumatoid arthritis Rheumatoid arthritis Submental mass Home Medications omeprazole 20 mg capsule,delayed release 20 mg PO DAILY acid reflux 08/23/20 [History Last Taken 03/28/22] duloxetine 60 mg capsule,delayed release 60 mg PO DAILY depression #90 caps 03/30/21 [Rx Last Taken 03/28/22] flecainide 100 mg tablet 100 mg PO BID arrthymia #180 tabs 03/30/21 [Rx Last Taken Unknown] acetaminophen 650 mg tablet,extended release (Tylenol Arthritis Pain) 1,300 mg PO Q12H pain 01/31/22 [History Last Taken 03/28/22] apixaban 5 mg tablet 5 mg PO BID blood thinner #180 tabs 02/06/22 [Rx Last Taken 03/28/22] allopurinol 100 mg tablet 100 mg PO QHS gout 03/29/22 [History Last Taken 03/28/22] amoxicillin 875 mg-potassium clavulanate 125 mg tablet 1 tab PO BID ANTIBIOTIC 03/29/22 [History Last Taken 03/28/22] ascorbic acid (vitamin C) 500 mg tablet 500 mg PO DAILY SUPPLEMENT 03/29/22 [History Last Taken 03/28/22] cholecalciferol (vitamin D3) 25 mcg (1,000 unit) tablet 25 mcg PO DAILY SUPPLEMENT 03/29/22 [History Last Taken 03/28/22] cyanocobalamin (vitamin B-12) 1,000 mcg tablet (Vitamin B-12) 1,000 mcg PO DAILY SUPPLEMENT 03/29/22 [History Last Taken 03/28/22] ferrous gluconate 324 mg (37.5 mg iron) tablet 648 mg PO DAILY SUPPLEMENT 03/29/22 [History Last Taken 03/28/22] flecainide 50 mg tablet 50 mg PO BID ARRHYTHMIA 03/29/22 [History Last Taken 03/28/22] folic acid 1 mg tablet 5 mg PO LEWIS 03/29/22 [History Last Taken 03/26/22] furosemide 20 mg tablet 20 mg PO BID FLUID 03/29/22 [History Last Taken 03/28/22] magnesium oxide 800 mg PO DAILY SUPPLEMENT 03/29/22 [History Last Taken 03/28/22] metformin 500 mg tablet 500 mg PO BID blood sugars 03/29/22 [History Last Taken 03/28/22] methotrexate sodium 2.5 mg tablet 20 mg PO SA RHEUMATOID ARTHRITIS 03/29/22 [History Last Taken 03/25/22] metoprolol tartrate 50 mg tablet 100 mg PO BID BLOOD PRESSURE 03/29/22 [History Last Taken 03/28/22] vitamin E mixed 400 unit tablet 400 unit PO DAILY SUPPLEMENT 03/29/22 [History Last Taken 03/28/22] Allergy/AdvReac Type Severity Reaction Status Date / Time Sulfa (Sulfonamide Allergy Severe rash Verified 03/29/22 07:54 Antibiotics) contact metal agent Allergy NEEDS Verified 03/29/22 07:54 FOLLOW-UP lisinopril AdvReac Severe cough Verified 03/29/22 07:54 Family History Father Heart disease Mother Heart disease Rheumatoid arthritis Sister No problems noted. Other CHF (congestive heart failure) Surgical History History of ankle surgery History of appendectomy History of bilateral hip replacements History of tonsillectomy Hx of foot surgery Social History Smoking Status: Never smoker alcohol intake: never substance use type: does not use caffeine: Yes Type: coffee Number of servings: 1 ROS Constitutional Constitutional: Denies fever(s) or weight loss Eyes Eyes: Reports systems reviewed and no addt'l complaints, except as documented ENT HEENT: Reports systems reviewed and no addt'l complaints, except as documented Cardiovascular Cardiovascular: Reports dyspnea at rest, dyspnea on exertion and palpitations; Denies chest pain at rest, chest pain with activity, edema or paroxysmal nocturnal dyspnea Respiratory/Chest Respiratory/Chest: Reports dyspnea on exertion, productive cough, shortness of breath at rest and shortness of breath with exertion Gastrointestinal Gastrointestinal: Denies change in bowel habits, nausea, vomiting or weight changes Genitourinary Genitourinary: Denies difficulty urinating Musculoskeletal Musculoskeletal: Denies joint stiffness or muscle weakness Integumentary Integumentary: Denies lesions Neurologic Neurologic: Denies dizziness or syncope Psychiatric Psychiatric: Denies anxiety Endocrine Endocrinology: Denies excessive sweating or fatigue Hematologic/Lymphatic Hematologic/Lymphatic: Denies anemia Allergic/Immunologic Allergic/Immunologic: Denies seasonal rhinorrhea Physical Exam Const alert, oriented x3 and no apparent distress General Appearance: cooperative HEENT hearing grossly normal bilaterally Head and Scalp: atraumatic Eyes EOMs intact bilaterally Neck General: normal visual inspection Chest inspection of chest normal and palpation of chest normal Resp normal respiratory effort Auscultation: clear to auscultation bilaterally and diminished lung sounds Cardio S1 normal heart sound and S2 normal heart sound Cardio Narrative: Irregular rate and rhythm Jugular Venous Distention: JVD Rhythm: abnormal rhythm irregularly irregular GI normal to inspection, nondistended, normoactive bowel sounds Extremity normal capillary refill and no pedal edema Peripheral Pulses: Yes pulses 2+ throughout and femoral pulses present Skin no rashes or lesions noted Neuro oriented x3 and CN's II-XII intact bilaterally Psych Appearance: grossly normal and appropriate Risk Stratification Risk Stratification Applicable: No Objective Data Vital Signs: Vital Signs Temp Pulse Resp BP Pulse Ox O2 Del Method O2 Flow Rate 98.4 F 76 18 124/84 H 97 Room Air 4 03/31/22 15:00 03/31/22 15:00 03/31/22 15:00 03/31/22 15:00 03/31/22 15:00 03/31/22 15:00 03/30/22 08:37 Oxygen Flow Rate (L/min) [ 6 AMBULATING with Oxygen #2] Oxygen Flow Rate (L/min) [ 4 AMBULATING with Oxygen #1] Oxygen Flow Rate (L/min) 3 Oxygen Delivery Method Room Air Weight: 173 lb 15.115 oz Body Mass Index (BMI) 32.0 Intake & Output: Intake and Output for Last 24 Hours 03/29/22 03/30/22 03/31/22 23:59 23:59 23:59 Intake Total 500 / 500 800 / 800 480 / 480 Output Total 1500 / 1500 100 / 100 Balance 500 / 500 -700 / -700 380 / 380 Lab / Micro Data Result Diagrams: 03/31/22 14:20 03/31/22 14:20 Labs: Laboratory Results - last 24 hr 03/30/22 20:59: POC Glucose 140 H 03/31/22 06:44: POC Glucose 139 H 03/31/22 11:04: POC Glucose 259 H 03/31/22 14:20: WBC 5.8, RBC 4.63, Hgb 12.9, Hct 41.4, MCV 89.4, MCH 27.9, MCHC 31.2 L, RDW Std Deviation 52.1 H, RDW Coeff of [place] 16.3 H, Plt Count 340, MPV 9.7, Immature Gran % (Auto) 0.300, Neut % (Auto) 56.3, Lymph % (Auto) 32.5, [place] % (Auto) 8.0, Eos % (Auto) 2.4, Baso % (Auto) 0.5, Absolute Neuts (auto) 3.2, Absolute Lymphs (auto) 1.87, Nucleated RBC % 0 03/31/22 14:20: Sodium 137, Potassium 3.5, Chloride 98, Carbon Dioxide 33.0 H, Anion Gap 6, BUN 25 H, Creatinine 1.19 H, Estim Creat Clear Calc 27.83, Est GFR (MDRD) Af Amer 56 L, Est GFR (MDRD) Non-Af 46 L, BUN/Creatinine Ratio 21.0 H, Glucose 211 H, Calcium 9.0, Total Bilirubin 0.50, AST 15, ALT 22, Alkaline Phosphatase 84, Total Protein 7.4, Albumin 3.8, Globulin 3.6, Albumin/Globulin Ratio 1.1 03/31/22 15:59: POC Glucose 149 H Cardiology Labs/Tests 03/31/22 14:20: WBC 5.8, RBC 4.63, Hgb 12.9, Hct 41.4, MCV 89.4, MCH 27.9, MCHC 31.2 L, Plt Count 340, MPV 9.7, Immature Gran % (Auto) 0.300, Neut % (Auto) 56.3, Lymph % (Auto) 32.5, [place] % (Auto) 8.0, Eos % (Auto) 2.4, Baso % (Auto) 0.5, Absolute Neuts (auto) 3.2, Nucleated RBC % 0 03/31/22 14:20: Sodium 137, Potassium 3.5, Chloride 98, Carbon Dioxide 33.0 H, Anion Gap 6, BUN 25 H, Creatinine 1.19 H, Est GFR (MDRD) Af Amer 56 L, Est GFR (MDRD) Non-Af 46 L, BUN/Creatinine Ratio 21.0 H, Glucose 211 H, Calcium 9.0, Total Bilirubin 0.50 Rhythm: EKG: ECHO: Previous echocardiogram from October 2021 demonstrated an ejection fraction of 70% with no wall motion abnormalities noted. Mitral annular calcification was present. Aortic sclerosis was also present. Stage II diastolic dysfunction was present. Stress Test: Stress test from October 2021 did not demonstrate any evidence of ischemia. Cardiac Cath: PCI: CT Surgery: Holter monitor: EPS: PPM: CXR: Chest CT Scan: Radiography Diagnostic Testing: Radiology Impression Thoracic Spine X-Ray 03/31/22 13:55 IMPRESSION: Dextroscoliosis. Multilevel spondylosis and disc space narrowing with loss of height of a lower dorsal vertebrae. Electronically Signed: Ryan Jeffers MD at 14:53 EST ,
[2022-03-31] MEDS: Amiodarone 200 MG Tablet PO (21:03)
[2022-03-31] MEDS: Allopurinol 100 MG Tablet PO (21:03)
[2022-03-31 23:05] LABS: Bedside Glucose 249 mg/dL (74-106)
[2022-04-01 03:19] VITALS: BP 129/88; PULSE 70; RESP 18; TEMP 36.4; O2SAT 94
[2022-04-01 06:29] VITALS: BP 143/97; PULSE 87; RESP 18; TEMP 36.7; O2SAT 93
[2022-04-01] MEDS: Insulin Lispro 100 UNIT/ML INSULN.PEN SC ×2 (06:35→11:50)
[2022-04-01] MEDS: Amiodarone 200 MG Tablet PO ×2 (06:35→14:00)
[2022-04-01 07:01] LABS: Bedside Glucose 155 mg/dL (74-106)
[2022-04-01] MEDS: Ferrous Gluconate 324 MG Tablet 648 MG PO (09:05)
[2022-04-01] MEDS: DULoxetine Hcl 60 MG Capsule PO (09:06)
[2022-04-01] MEDS: APIXABAN 5 MG TABLET PO (09:06)
[2022-04-01] MEDS: Vitamin E 400 UNITS Capsule PO (09:06)
[2022-04-01] MEDS: Acetaminophen 500 MG Tablet 1000 MG PO (09:07)
[2022-04-01] MEDS: Cyanocobalamin 500 MCG Tablet 1000 MCG PO (09:07)
[2022-04-01] MEDS: Pantoprazole Sodium 20 MG Tablet PO (09:09)
[2022-04-01] MEDS: Cholecalciferol (VIT D3) 25 MCG TABLET (1,000 UNITS) PO (09:09)
[2022-04-01] MEDS: Ascorbic Acid 500 MG Tablet PO (09:09)
[2022-04-01 09:10] VITALS: BP 143/97; PULSE 87
[2022-04-01] MEDS: Magnesium Chloride 64 MG Delay Rel.Tablet 128 MG PO (09:10)
[2022-04-01] MEDS: Metoprolol Tartrate 100 MG Tablet PO (09:10)
[2022-04-01] MEDS: Furosemide 40 MG/4 ML Vial IV ×2 (09:11→09:22)
[2022-04-01] MEDS: 0.9% Saline Lock 10 ML Syringe IV (09:22)
[2022-04-01 10:00] VITALS: O2SAT 92
[2022-04-01 10:30] VITALS: O2SAT 92
--- NOTE | 2022-04-01 11:28 | PN.CARD_ITS ---
Subjective Subjective Patient seen and evaluated. Appears to be breathing much better. Less short of breath. Objective Data Vital Signs: Vital Signs Temp Pulse Resp BP Pulse Ox O2 Del Method O2 Flow Rate 98.1 F 87 18 143/97 H 92 Room Air 4 04/01/22 06:29 04/01/22 09:10 04/01/22 06:29 04/01/22 09:10 04/01/22 10:30 04/01/22 10:00 03/30/22 08:37 Oxygen Flow Rate (L/min) [ 6 AMBULATING with Oxygen #2] Oxygen Flow Rate (L/min) [ 4 AMBULATING with Oxygen #1] Oxygen Flow Rate (L/min) 3 Oxygen Delivery Method Room Air Weight: 172 lb 9.951 oz Body Mass Index (BMI) 32.0 Intake & Output: Intake and Output for Last 24 Hours 03/30/22 03/31/22 04/01/22 23:59 23:59 23:59 Intake Total 800 / 800 840 / 840 Output Total 1500 / 1500 950 / 950 50 / 50 Balance -700 / -700 -110 / -110 -50 / -50 Lab / Micro Data Result Diagrams: 03/31/22 14:20 03/31/22 14:20 Labs: Laboratory Results - last 24 hr 03/31/22 14:20: WBC 5.8, RBC 4.63, Hgb 12.9, Hct 41.4, MCV 89.4, MCH 27.9, MCHC 31.2 L, RDW Std Deviation 52.1 H, RDW Coeff of [place] 16.3 H, Plt Count 340, MPV 9.7, Immature Gran % (Auto) 0.300, Neut % (Auto) 56.3, Lymph % (Auto) 32.5, [place] % (Auto) 8.0, Eos % (Auto) 2.4, Baso % (Auto) 0.5, Absolute Neuts (auto) 3.2, Absolute Lymphs (auto) 1.87, Nucleated RBC % 0 03/31/22 14:20: Sodium 137, Potassium 3.5, Chloride 98, Carbon Dioxide 33.0 H, Anion Gap 6, BUN 25 H, Creatinine 1.19 H, Estim Creat Clear Calc 27.83, Est GFR (MDRD) Af Amer 56 L, Est GFR (MDRD) Non-Af 46 L, BUN/Creatinine Ratio 21.0 H, Glucose 211 H, Calcium 9.0, Total Bilirubin 0.50, AST 15, ALT 22, Alkaline Phosphatase 84, Total Protein 7.4, Albumin 3.8, Globulin 3.6, Albumin/Globulin Ratio 1.1 03/31/22 15:59: POC Glucose 149 H 03/31/22 20:57: POC Glucose 249 H 04/01/22 06:32: POC Glucose 155 H Cardiology Labs/Tests 03/31/22 14:20: WBC 5.8, RBC 4.63, Hgb 12.9, Hct 41.4, MCV 89.4, MCH 27.9, MCHC 31.2 L, Plt Count 340, MPV 9.7, Immature Gran % (Auto) 0.300, Neut % (Auto) 56.3, Lymph % (Auto) 32.5, [place] % (Auto) 8.0, Eos % (Auto) 2.4, Baso % (Auto) 0.5, Absolute Neuts (auto) 3.2, Nucleated RBC % 0 03/31/22 14:20: Sodium 137, Potassium 3.5, Chloride 98, Carbon Dioxide 33.0 H, Anion Gap 6, BUN 25 H, Creatinine 1.19 H, Est GFR (MDRD) Af Amer 56 L, Est GFR (MDRD) Non-Af 46 L, BUN/Creatinine Ratio 21.0 H, Glucose 211 H, Calcium 9.0, Tot al Bilirubin 0.50 Rhythm: EKG: ECHO: Stress Test: Cardiac Cath: PCI: CT Surgery: Holter monitor: EPS: PPM: CXR: Chest CT Scan: Radiography Diagnostic Testing: Radiology Impression Thoracic Spine X-Ray 03/31/22 13:55 IMPRESSION: Dextroscoliosis. Multilevel spondylosis and disc space narrowing with loss of height of a lower dorsal vertebrae. Electronically Signed: Ryan Jeffers MD at 14:53 EST , Physical Exam Const alert, oriented x3 and no apparent distress General Appearance: cooperative HEENT hearing grossly normal bilaterally Head and Scalp: atraumatic Eyes EOMs intact bilaterally Neck General: normal visual inspection Chest inspection of chest normal and palpation of chest normal Resp normal respiratory effort Auscultation: clear to auscultation bilaterally and diminished lung sounds Cardio S1 normal heart sound and S2 normal heart sound Cardio Narrative: Irregular rate and rhythm Jugular Venous Distention: JVD Rhythm: abnormal rhythm irregularly irregular GI normal to inspection, nondistended, normoactive bowel sounds Extremity normal capillary refill and no pedal edema Peripheral Pulses: Yes pulses 2+ throughout and femoral pulses present Skin no rashes or lesions noted Neuro oriented x3 and CN's II-XII intact bilaterally Psych Appearance: grossly normal and appropriate Assessment & Plan Assessment/Plan (1) Atrial fibrillation: PLAN: Patient presents with paroxysmal atrial fibrillation. At this time its not clear whether exact precipitating factor is. She has been on anticoagulation. * I would recommend continuing her beta-kurt * At her age even though her stress test is normal my suspicion is that she does have some underlying coronary disease. I am hesitant to increase her flecainide and we will therefore discontinue this. * I would like to start her on amiodarone 200 mg 3 times a day. If this does not result in conversion to sinus rhythm perhaps we would relegate her to rate control only. * We should continue to monitor her to see how she does. (2) Grade II diastolic dysfunction: PLAN: She does have evidence of diastolic dysfunction. Her last ejection fraction was preserved. We will recommend continuing medical therapy with intermittent dose diuretic. (3) Essential hypertension: PLAN: Her blood pressure is under good control at this time and no major changes will be made. She will remain on the beta-kurt with the metoprolol at 100 mg twice a day. Thank you for allowing me to participate in the care of your patient. Please don't hesitate to call if any issues arise.
--- NOTE | 2022-04-01 11:32 | DCINST_ITS ---
Discharge Instructions Diet Discharge Diet: 1800 Calorie Control Diet, 8 Cup Fluid Restriction and 2000 mg Sodium Diet Activity Discharge Activity: Return to Normal Activity Follow Up Care Test Results: Test results from this visit will be discussed in further detail at your follow- up appointment, if applicable. Discharge Plan Admission Admit Date/Time: 03/29/22 12:00 Primary Reason for Your Visit: Acute CHF exacerbation/A. fib with RVR Attending Provider: Shena Beltran Primary Care Provider: Maria Del Carmen Case NP Consulting Providers: Michael Crespo Instructions Additional Instructions / Restrictions: Take note of changes to your medication Continue to follow a low-salt, low-fat diet Weight yourself every day Follow-up with cardiology within 1-2 Follow-up with your primary care doctor within 1 week Discharge Orders/Prescriptions Prescriptions: New amiodarone 200 mg Tablet 200 mg PO TID 30 Days Qty: 90 0RF furosemide [Lasix] 40 mg tablet 40 mg PO BID 30 Days Qty: 60 0RF lidocaine 5 % Adhesive Patch,Medicated 2 patch topical DAILY 7 Days Qty: 7 0RF Protocol: *Topical Application Instructions APPLICATION INSTRUCTIONS: to the left posterior chest wall Continued omeprazole 20 mg capsule,delayed release(DR/EC) 20 mg PO DAILY acetaminophen [Tylenol Arthritis Pain] 650 mg tablet extended release 1,300 mg PO Q12H duloxetine 60 mg capsule,delayed release(DR/EC) 60 mg PO DAILY Qty: 90 3RF apixaban 5 mg tablet 5 mg PO BID Qty: 180 3RF cyanocobalamin (vitamin B-12) [Vitamin B-12] 1,000 mcg Tablet 1,000 mcg PO DAILY ascorbic acid (vitamin C) 500 mg Tablet 500 mg PO DAILY methotrexate sodium 2.5 mg tablet 20 mg PO SA cholecalciferol (vitamin D3) 25 mcg (1,000 unit) Tablet 25 mcg PO DAILY ferrous gluconate 324 mg (37.5 mg iron) Tablet 648 mg PO DAILY vitamin E mixed 400 unit Tablet 400 unit PO DAILY magnesium oxide 400 mg magnesium Tablet 800 mg PO DAILY metformin 500 mg tablet 500 mg PO BID allopurinol 100 mg tablet 100 mg PO QHS metoprolol tartrate 50 mg tablet 100 mg PO BID folic acid 1 mg tablet 5 mg PO LEWIS Discontinued furosemide 20 mg tablet 20 mg PO BID flecainide 50 mg tablet 50 mg PO BID amoxicillin-pot clavulanate 875-125 mg tablet 1 tab PO BID Referrals / Follow Up: Maria Del Carmen Case NP, [employer] [Primary Care Provider] - In 1 Week Jose Peres MD [Med Staff - Active Staff] - Within 2 Weeks Disposition Disposition (needs filled in before D/C Order can be placed): Home, Self Care
[2022-04-01 12:10] LABS: Bedside Glucose 178 mg/dL (74-106)
--- NOTE | 2022-04-01 12:13 | PCM.DC.SUM ---
Providers Date of Admission: 03/29/22 Date of Discharge: 04/01/22 Primary Care Physician: ROBYN Sanchez Consultations 03/31/22 11:18 Consult: Cardiology Routine Consulting Provider: Michael Crespo Reason for Consult: A. fib with RVR EMERGENT Consult: No MD Notified: Yes Date Notified: 03/31/22 Time Notified: 11:32 Method of Notification: Text Reason For Visit: CHF Diagnosis Discharge Diagnosis (1) Atrial fibrillation: Status: Acute Code(s): I48.91 - Unspecified atrial fibrillation (2) Grade II diastolic dysfunction: Status: Acute Code(s): I51.89 - Other ill-defined heart diseases (3) Essential hypertension: Status: Chronic Code(s): I10 - Essential (primary) hypertension Plan 1. Acute hypoxia secondary to acute exacerbation of heart failure preserved EF, EF 70%, stage II diastolic dysfunction 2. A. fib with RVR, rate controlled 3. Acute exacerbation of heart failure with preserved EF, EF 70%, stage II diastolic dysfunction 4. Type II DM 5. Rheumatoid arthritis Medications at Discharge Home Medications omeprazole 20 mg capsule,delayed release 20 mg PO DAILY acid reflux 08/23/20 duloxetine 60 mg capsule,delayed release 60 mg PO DAILY depression #90 caps 03/30/21 acetaminophen 650 mg tablet,extended release (Tylenol Arthritis Pain) 1,300 mg PO Q12H pain 01/31/22 apixaban 5 mg tablet 5 mg PO BID blood thinner #180 tabs 02/06/22 allopurinol 100 mg tablet 100 mg PO QHS gout 03/29/22 ascorbic acid (vitamin C) 500 mg tablet 500 mg PO DAILY SUPPLEMENT 03/29/22 cholecalciferol (vitamin D3) 25 mcg (1,000 unit) tablet 25 mcg PO DAILY SUPPLEMENT 03/29/22 cyanocobalamin (vitamin B-12) 1,000 mcg tablet (Vitamin B-12) 1,000 mcg PO DAILY SUPPLEMENT 03/29/22 ferrous gluconate 324 mg (37.5 mg iron) tablet 648 mg PO DAILY SUPPLEMENT 03/29/22 folic acid 1 mg tablet 5 mg PO LEWIS 03/29/22 magnesium oxide 800 mg PO DAILY SUPPLEMENT 03/29/22 metformin 500 mg tablet 500 mg PO BID blood sugars 03/29/22 methotrexate sodium 2.5 mg tablet 20 mg PO SA RHEUMATOID ARTHRITIS 03/29/22 metoprolol tartrate 50 mg tablet 100 mg PO BID BLOOD PRESSURE 03/29/22 vitamin E mixed 400 unit tablet 400 unit PO DAILY SUPPLEMENT 03/29/22 amiodarone 200 mg tablet 200 mg PO TID 30 days #90 tabs 04/01/22 furosemide 40 mg tablet (Lasix) 40 mg PO BID 30 days #60 tabs 04/01/22 lidocaine 5 % topical patch 2 patch topical DAILY 7 days #7 ea 04/01/22 Hospital Course Operations None Procedures None Summary of Care Provided Minutes Spent on Discharge: 35 Hospital Course: 82 y/o medical history of paroxysmal atrial fibrillation, chronic diastolic CHF, hypertension, type II DM who comes in with progressive shortness of breath ongoing for 4 days. Patient was last seen at cardiology office on 115 2022.? She had complained of shortness of breath ongoing for a few weeks. She stopped taking her flecainide 4 days.? She was found to be in A. fib with RVR.? She was asked to take her flecainide and increase her metoprolol from 50 mg twice daily to 100 mg twice daily.? Lasix was prescribed for her but she did not pick it up from her pharmacy because it was 4 hours from her home and she did not have anybody to pick it up. She comes to the emergency room today because she is progressively short of breath.? She denied any chest pain.? Her heart rate is slightly elevated.? She denied any dizziness or palpitation but she admits to dyspnea with exertion and short distances. Her vitals in the ED showed blood pressure 130/106, heart rate 93, respiratory rate 20, temperature 97.0 F, oxygen sat 93% on room air.? WBC count is 5.7, hemoglobin is 11.5, plt 222. INR 1.3, BMP is unremarkable. BNpep 344.1. Troponin 9. Patient was admitted to the progressive care unit and managed as acute CHF. She had mild A. fib with RVR and had resumption of her flecainide and metoprolol. She gradually improved back did have episodes of uncontrolled heart rate. Cardiology was consulted. She was switched to amiodarone. Patient was evaluated for home oxygen and did not qualify for oxygen. She will follow-up with cardiology within 2 weeks. She will follow-up also with her primary care doctor within 1 week. Physical Exam Narrative Physical exam: General: Alert, Oriented x3, Cooperative, on room air HEENT: Atraumatic Oral: Moist Mucosa Neck: Supple Lungs:Diminished to auscultation Cardiovascular: HS I+II, regular, no murmurs Abdomen: Bowel Sounds Present, Soft, Non Tender Extremities: Bilateral leg edema, trace Skin: No rashes, No breakdown Neurological: Grossly intact Psych/Mental Status: Appropriate Weight / BMI Weight Weight: 78.3 kg Body Mass Index (BMI) 32.0 ABG / Lab / Microbiology Data Result Diagrams: 03/31/22 14:20 03/31/22 14:20 Laboratory: Laboratory Results - last 24 hr 03/31/22 14:20: WBC 5.8, RBC 4.63, Hgb 12.9, Hct 41.4, MCV 89.4, MCH 27.9, MCHC 31.2 L, RDW Std Deviation 52.1 H, RDW Coeff of [place] 16.3 H, Plt Count 340, MPV 9.7, Immature Gran % (Auto) 0.300, Neut % (Auto) 56.3, Lymph % (Auto) 32.5, Sherman % (Auto) 8.0, Eos % (Auto) 2.4, Baso % (Auto) 0.5, Absolute Neuts (auto) 3.2, Absolute Lymphs (auto) 1.87, Nucleated RBC % 0 03/31/22 14:20: Sodium 137, Potassium 3.5, Chloride 98, Carbon Dioxide 33.0 H, Anion Gap 6, BUN 25 H, Creatinine 1.19 H, Estim Creat Clear Calc 27.83, Est GFR (MDRD) Af Amer 56 L, Est GFR (MDRD) Non-Af 46 L, BUN/Creatinine Ratio 21.0 H, Glucose 211 H, Calcium 9.0, Total Bilirubin 0.50, AST 15, ALT 22, Alkaline Phosphatase 84, Total Protein 7.4, Albumin 3.8, Globulin 3.6, Albumin/Globulin Ratio 1.1 03/31/22 15:59: POC Glucose 149 H 03/31/22 20:57: POC Glucose 249 H 04/01/22 06:32: POC Glucose 155 H 04/01/22 11:48: POC Glucose 178 H Microbiology: Microbiology 03/29/22 08:25 Nasal Secretion SARS-CoV-2 & FLU Antigen (Rapid) - Final Radiography Diagnostic Testing: Radiology Impression Thoracic Spine X-Ray 03/31/22 13:55 IMPRESSION: Dextroscoliosis. Multilevel spondylosis and disc space narrowing with loss of height of a lower dorsal vertebrae. Electronically Signed: Ryan Jeffers MD at 14:53 EST , D/C Instructions Discharge Diet: 1800 Calorie Control Diet, 8 Cup Fluid Restriction and 2000 mg Sodium Diet Meaningful Use Info Meaningful Use Diagnoses (Choose all that apply): None applicable Discharge Plan Admission Admit Date/Time: 03/29/22 12:00 Primary Reason for Your Visit: Acute CHF exacerbation/A. fib with RVR Attending Provider: Shena Beltran Primary Care Provider: Maria Del Carmen Case NP Consulting Providers: Michael Crespo Instructions Additional Instructions / Restrictions: Take note of changes to your medication Continue to follow a low-salt, low-fat diet Weight yourself every day Follow-up with cardiology within 1-2 Follow-up with your primary care doctor within 1 week Discharge Orders/Prescriptions Prescriptions: New amiodarone 200 mg Tablet 200 mg PO TID 30 Days Qty: 90 0RF furosemide [Lasix] 40 mg tablet 40 mg PO BID 30 Days Qty: 60 0RF lidocaine 5 % Adhesive Patch,Medicated 2 patch topical DAILY 7 Days Qty: 7 0RF Protocol: *Topical Application Instructions APPLICATION INSTRUCTIONS: to the left posterior chest wall Continued omeprazole 20 mg capsule,delayed release(DR/EC) 20 mg PO DAILY acetaminophen [Tylenol Arthritis Pain] 650 mg tablet extended release 1,300 mg PO Q12H duloxetine 60 mg capsule,delayed release(DR/EC) 60 mg PO DAILY Qty: 90 3RF apixaban 5 mg tablet 5 mg PO BID Qty: 180 3RF cyanocobalamin (vitamin B-12) [Vitamin B-12] 1,000 mcg Tablet 1,000 mcg PO DAILY ascorbic acid (vitamin C) 500 mg Tablet 500 mg PO DAILY methotrexate sodium 2.5 mg tablet 20 mg PO SA cholecalciferol (vitamin D3) 25 mcg (1,000 unit) Tablet 25 mcg PO DAILY ferrous gluconate 324 mg (37.5 mg iron) Tablet 648 mg PO DAILY vitamin E mixed 400 unit Tablet 400 unit PO DAILY magnesium oxide 400 mg magnesium Tablet 800 mg PO DAILY metformin 500 mg tablet 500 mg PO BID allopurinol 100 mg tablet 100 mg PO QHS metoprolol tartrate 50 mg tablet 100 mg PO BID folic acid 1 mg tablet 5 mg PO LEWIS Discontinued furosemide 20 mg tablet 20 mg PO BID flecainide 50 mg tablet 50 mg PO BID amoxicillin-pot clavulanate 875-125 mg tablet 1 tab PO BID Referrals / Follow Up: Jose Peres MD [Med Staff - Active Staff] - Within 2 Weeks Maria Del Carmen Case NP, [employer] [Primary Care Provider] - In 1 Week Disposition Disposition (needs filled in before D/C Order can be placed): Home, Self Care Charges/Coding Visit Charges Inpatient E&M: 62892 Disch Hosp >30min
[2022-04-01] MEDS: Methotrexate 2.5 MG Tablet 20 MG PO (13:14)
[2022-04-01] MEDS: Lidocaine 5% Patch 2 PATCH TOPICAL (13:15)
[2022-04-01 13:30] VITALS: BP 97/78; PULSE 62; RESP 18; TEMP 36.9; O2SAT 95
== END 2022-04-01 14:23 | disposition home or self-care (01) | DRG 291 ==
LOC: ED 12:11 → PCU 12:36
PROVIDERS: Admitting Provider Internal Medicine; Emergency Provider Emergency Medicine; PCP Nurse Practitioner; Visit Provider Internal Medicine
DX: I11.0 Hypertensive heart disease with heart failure (principal); I50.33 Acute on chronic diastolic (congestive) heart failure; E11.9 Type 2 diabetes mellitus without complications; Z79.01 Long term (current) use of anticoagulants; I48.0 Paroxysmal atrial fibrillation; M06.9 Rheumatoid arthritis, unspecified; E78.00 Pure hypercholesterolemia, unspecified; R09.02 Hypoxemia; Z66 Do not resuscitate; Z79.84 Long term (current) use of oral hypoglycemic drugs; Z79.899 Other long term (current) drug therapy
CPT/HCPCS: 36415; 71046; 71275; 72070; 80048; 80053; 82962; 83880; 84484; 85025; 85027; 85610; 85730; 87428; 93005; 99252; 99285; Q9967; A4216; G0463; J1940; J8610

== ENCOUNTER → 2022-12-29 | Outpatient (CLI) | payer MEDICARE, SELFPAY ==
--- NOTE | 2022-12-29 13:40 | RAD_ITS ---
STUDY: X-RAY - RIGHT KNEE REASON FOR EXAM: Female, 82 years old. Fall with right knee injury. Pain. TECHNIQUE: 3 view(s) of the knee. COMPARISON: January 13, 2019. FINDINGS: Stable osteopenia, tricompartmental arthrosis most marked medially and in the patellofemoral compartment and joint effusion. Small joint effusion. Chondrocalcinosis. No acute osseous abnormality or erosive changes. RAD/Knee 1 or 2 Views IMPRESSION: Osteopenia with tricompartmental arthrosis unchanged from prior comparison study. Small joint effusion and chondrocalcinosis No acute osseous abnormality Electronically Signed: Tayo Duran MD at 14:46 EDT ,
--- NOTE | 2022-12-29 13:40 | RAD_ITS ---
INDICATION: Trauma, fall, left hip injury EXAMINATION/TECHNIQUE: X-RAY - XR Hip Unilateral with Pelvis when performed; 2-3 Views COMPARISON: Prior study dated: 01/13/2019 FINDINGS: PELVIC BONES: No displaced fracture, destructive or sclerotic lesions. Note that overlapping bowel shadows may however obscure fine detail. Sacroiliac joints are unremarkable. No widening of the pubic symphysis. HIPS: Stable appearance bilateral hip prostheses. No acute fracture or pathologic lucency. SOFT TISSUES: Stable coarse pelvic calcifications. RAD/HIP, UNI W/ Pelvis 2-3 Views IMPRESSION: No acute bony abnormality. Electronically Signed: Parvez Perry MD at 21:20 EDT ,
--- NOTE | 2022-12-29 13:40 | RAD_ITS ---
STUDY: X-RAY - CERVICAL SPINE REASON FOR EXAM: Female, 82 years old. Shoulder and upper back tenderness on the left. TECHNIQUE: 3 view(s) of the cervical spine were obtained. COMPARISON: None FINDINGS: Osteopenia. Normal anterior atlantoaxial articulation. Normal odontoid process. Normal cervical lordosis. Diffuse moderate to marked uncovertebral and facet sclerosis. Marked intervertebral disc space narrowing from C3-4 to C6-7 with osteophytes most marked at C5-6. Left carotid calcification. RAD/Cerv Spine 2 or 3 Views IMPRESSION: Osteopenia with moderate to marked lower cervical spondylosis and left carotid calcification. Electronically Signed: Tayo Duran MD at 14:56 EDT ,
--- NOTE | 2022-12-29 13:40 | RAD_ITS ---
INDICATION: point tenderness L ant ribs EXAMINATION/TECHNIQUE: X-RAY - XR Ribs Unilateral W/ PA Chest Min 3 Views COMPARISON: 03/27/2022 FINDINGS: SOFT TISSUES: No soft tissue swelling or gas. BONES: No displaced fracture. No sclerotic or destructive changes observed. VISUALIZED LUNGS: Clear. No pneumothorax. RAD/Ribs Uni Min 3V w/PA Chest IMPRESSION: No evidence of displaced rib fracture. Electronically Signed: Parvez Perry MD at 21:22 EDT ,
--- NOTE | 2022-12-29 13:40 | RAD_ITS ---
STUDY: X-RAY - LEFT SHOULDER REASON FOR EXAM: Female, 82 years old. Posterior shoulder tenderness. TECHNIQUE: 2 view(s) of the shoulder. COMPARISON: None. FINDINGS: Osteopenia. Mild arthrosis of the glenohumeral joint. Normal acromion. Sclerosis and cystic changes of the humeral head. Flocculent calcification projected over the superior glenoid which may represent calcific tendinosis. Normal visualized pulmonary apex. RAD/Shoulder min 2 Views IMPRESSION: Osteopenia, osteoarthritic change and probable calcific tendinosis. No acute abnormality. Electronically Signed: Tayo Duran MD at 14:49 EDT ,
== END | disposition home or self-care (01) ==
LOC: RAD 13:34
PROVIDERS: PCP Nurse Practitioner; Referring Provider Nurse Practitioner; Visit Provider Nurse Practitioner
DX: M25.512 Pain in left shoulder (principal); M54.2 Cervicalgia; R07.81 Pleurodynia; R06.02 Shortness of breath
CPT/HCPCS: 71101; 72040; 73030; 73502; 73560

== ENCOUNTER 2023-02-05 12:33 | Emergency (ER) | payer MEDICARE, SELFPAY ==
[2023-02-05 12:34] VITALS: BP 156/91; PULSE 73; RESP 15; TEMP 36.6; O2SAT 96
--- NOTE | 2023-02-05 12:41 | EKG12_ITS ---
Test Reason : CP Blood Pressure : / mmHG Vent. Rate : 072 BPM Atrial Rate : 072 BPM P-R Int : 180 ms QRS Dur : 074 ms QT Int : 390 ms P-R-T Axes : 059 000 057 degrees QTc Int : 427 ms Normal sinus rhythm Normal ECG Confirmed by LISSETT MOORE, AMADEO ([id number]), publication editor GERRY VILLAREAL ([id number]) on 02/06/2023 10:47:15 AM Referred By: Maria Del Carmen Case Confirmed By:AMADEO GALEANA MD
--- NOTE | 2023-02-05 13:08 | EDS_ITS ---
HPI <ROBYN Manzano - Last Filed: 02/05/23 15:23> History of Present Illness Chief Complaint: General Illness Narrative Narrative: Patient is an 82-year-old female with history of chronic pain, osteoporosis, COPD, type 2 diabetes history of atrial fibrillation on Eliquis who presents to the emergency department with ongoing pain to the left side of her chest, her back. Patient states that this has been ongoing for the last 2 weeks. She states that the pain is getting out of control. She is taking Tylenol however this is not helping. She states that she is feeling more short of breath worse with walking because of the pain. She denies any missed doses of Eliquis. Patient has pain with movement as well as rotation. PFS <ROBYN Manzano - Last Filed: 02/05/23 15:23> [facility] Medical History Anxiety Arthritis Atrial fibrillation Back pain Congestive heart failure Cystitis without hematuria Diabetes type 2, uncontrolled Essential hypertension Fatigue Fibromyalgia Gout Knee pain Paroxysmal atrial fibrillation Pure hypercholesterolemia Rash of face Submental mass Home Medications acetaminophen 650 mg tablet,extended release (Tylenol Arthritis Pain) 1,300 mg PO Q12H pain 01/31/22 [History Last Taken 03/28/22] ascorbic acid (vitamin C) 500 mg tablet 500 mg PO DAILY SUPPLEMENT 03/29/22 [History Last Taken 03/28/22] cholecalciferol (vitamin D3) 25 mcg (1,000 unit) tablet 25 mcg PO DAILY SUPPLEMENT 03/29/22 [History Last Taken 03/28/22] cyanocobalamin (vitamin B-12) 1,000 mcg tablet (Vitamin B-12) 1,000 mcg PO DAILY SUPPLEMENT 03/29/22 [History Last Taken 03/28/22] magnesium oxide 800 mg PO DAILY SUPPLEMENT 03/29/22 [History Last Taken 03/28/22] vitamin E mixed 400 unit tablet 400 unit PO DAILY SUPPLEMENT 03/29/22 [History Last Taken 03/28/22] duloxetine 60 mg capsule,delayed release 60 mg PO DAILY depression #90 caps 04/10/22 [Rx Last Taken Unknown] metformin 500 mg tablet 500 mg PO BID blood sugars #180 tabs 04/10/22 [Rx Last Taken Unknown] metoprolol tartrate 50 mg tablet 50 mg PO BID BLOOD PRESSURE #180 tabs 06/14/22 [Rx Last Taken Unknown] allopurinol 100 mg tablet 100 mg PO QHS gout #90 tabs 09/05/22 [Rx Last Taken Unknown] furosemide 40 mg tablet (Lasix) 40 mg PO BID 90 days #180 tabs 09/05/22 [Rx Last Taken Unknown] apixaban 5 mg tablet 5 mg PO BID blood thinner #180 tabs 12/22/22 [Rx Last Taken Unknown] spironolactone 25 mg tablet 25 mg PO DAILY #30 tabs 12/22/22 [Rx Last Taken Unknown] amiodarone 200 mg tablet 200 mg PO TID 12/26/22 [History Last Taken Unknown] leflunomide 20 mg tablet 20 mg PO DAILY #90 tabs 01/02/23 [Rx Last Taken Unknown] pantoprazole 40 mg tablet,delayed release 40 mg PO DAILY #90 tabs 01/02/23 [Rx Last Taken Unknown] folic acid 1 mg tablet 1 mg PO DAILY 01/10/23 [History Last Taken Unknown] gabapentin 300 mg capsule 300 mg PO QHS #30 caps 02/05/23 [Rx Last Taken Unk nown] Allergy/AdvReac Type Severity Reaction Status Date / Time Sulfa (Sulfonamide Allergy Severe rash Verified 12/26/22 13:08 Antibiotics) contact metal agent Allergy NEEDS Verified 12/26/22 13:08 FOLLOW-UP lisinopril AdvReac Severe cough Verified 12/26/22 13:08 Family History Father Heart disease Mother Heart disease Rheumatoid arthritis Sister No problems noted. Other CHF (congestive heart failure) Surgical History History of ankle surgery History of appendectomy History of bilateral hip replacements History of tonsillectomy Hx of foot surgery Social History Smoking Status: Never smoker alcohol intake: never substance use type: does not use caffeine: Yes Type: coffee Number of servings: 1 ROS <ROBYN Manzano - Last Filed: 02/05/23 15:23> ROS ED ROS Narrative Constitutional: Negative for fever, chills, weight loss, weakness Eyes: Negative for vision loss, vision change, double vision ENT: Negative for any sore throat, ear pain, congestion Cardiovascular: Negative for any chest pain, tightness, palpitations. Positive for chest wall tenderness Respiratory: Negative for any cough, sputum production, hemoptysis, dyspnea, dyspnea on exertion, orthopnea Gastrointestinal: Negative for any abdominal pain, nausea, vomiting, diarrhea, constipation, blood in stool, blood in vomit : Negative for any urinary frequency, dysuria, retention, blood in urine Muscle skeletal: Negative for any myalgias, arthralgias. Positive for left- sided neck, left back pain Neurological: Negative for any headache, syncope, numbness or tingling, dizziness Skin: Negative for any rashes, lumps, itching, abrasions, lacerations Psychiatric: Negative for any depression, anxiety, stress, suicidal ideation, homicidal ideation Hematologic: Negative for any easy bruising, excessive bruising, easy bleeding Allergies: Negative for any eczema, hives, rash EXAM <ROBYN Manzano - Last Filed: 02/05/23 15:23> Physical Exam Narrative Exam Narrative: Vital signs reviewed. HEET: Head normocephalic atraumatic, TMs clear bilaterally. Posterior pharynx is clear, moist mucous membranes. Nares clear bilaterally. Neck: Supple with no lymphadenopathy or tenderness. No signs of meningismus. Full range of motion of the left side of her neck. Cardiac: Regular rate and rhythm no murmurs gallops or rubs, equal peripheral pulses bilaterally. Respiratory: Lungs clear to auscultation bilaterally. Positive for left-sided chest wall tenderness, patient is pain on palpation to the left anterior upper chest as well as under the left breast. This goes around to the left ribs. There is no crepitus, there is no signs of trauma. Equal breath sounds throughout. Abdomen: Soft, nontender, nondistended. No abdominal bruit or pulsatile masses. No hepatosplenomegaly Extremities: No peripheral edema, no signs of gross trauma or deformity. Active full range of motion of all extremities. Neuro: Cranial nerves II through XII intact, no focal neurological deficits. Skin: Clean dry and intact with no rash, purpura, petechiae, vesicles or pustules. Backs/flank: No CVA tenderness, no midline spinal tenderness, no deformity. Tenderness to the left thoracic spine paraspinal, no midline spinal tenderness. Psych: Normal mood and affect. No SI, HI or acute psychosis. Const Vital Signs: 02/05/23 12:34 02/05/23 12:48 02/05/23 14:33 Temperature 98 F Temperature Source Temporal Pulse Rate 73 Respiratory Rate 15 Respiratory Effort Normal Respiratory Pattern Normal Blood Pressure 156/91 H 134/78 H Blood Pressure Mean 112 96 Pulse Ox 96 97 Oxygen Delivery Method Room Air Room Air 02/05/23 15:20 Temperature Temperature Source Pulse Rate 77 Respiratory Rate Respiratory Effort Respiratory Pattern Blood Pressure 132/80 H Blood Pressure Mean 97 Pulse Ox 92 Oxygen Delivery Method Positive well nourished and well developed General Appearance ED: well developed <Dr. Rafa Christianson DO - Last Filed: 02/05/23 22:59> Physical Exam Const Vital Signs: 02/05/23 12:34 02/05/23 12:48 02/05/23 14:33 Temperature 98 F Temperature Source Temporal Pulse Rate 73 Respiratory Rate 15 Respiratory Effort Normal Respiratory Pattern Normal Blood Pressure 156/91 H 134/78 H Blood Pressure Mean 112 96 Pulse Ox 96 97 Oxygen Delivery Method Room Air Room Air 02/05/23 15:20 Temperature Temperature Source Pulse Rate 77 Respiratory Rate Respiratory Effort Respiratory Pattern Blood Pressure 132/80 H Blood Pressure Mean 97 Pulse Ox 92 Oxygen Delivery Method MDM <ROBYN Manzano - Last Filed: 02/05/23 15:23> MDM Lab Data Labs: Laboratory Results - last 24 hr 02/05/23 13:02 WBC 4.8 RBC 4.49 Hgb 13.1 Hct 40.8 MCV 90.9 MCH 29.2 MCHC 32.1 RDW Std Deviation 49.1 H RDW Coeff of [place] 14.7 H Plt Count 200 MPV 9.9 Immature Gran % (Auto) 0.200 Neut % (Auto) 67.6 Lymph % (Auto) 15.7 L [place] % (Auto) 11.3 H Eos % (Auto) 4.6 Baso % (Auto) 0.6 Absolute Neuts (auto) 3.2 Absolute Lymphs (auto) 0.75 L Nucleated RBC % 0 Sodium 138 Potassium 3.9 Chloride 106 Carbon Dioxide 27.0 Anion Gap 5 BUN 21 H Creatinine 1.29 H Est GFR (MDRD) Af Amer 51 L Est GFR (MDRD) Non-Af 42 L BUN/Creatinine Ratio 16.3 Glucose 106 Calcium 8.9 Radiography Diagnostic Testing: Clinical Impression(s) from Imaging Studies Chest X-Ray 02/05/23 13:35 IMPRESSION: Stable chest with no acute or emergent finding. Electronically Signed: Tayo Duran MD at 13:50 EST Reading Location ID and State: [address] [place] [address] , Service support , Treatment and Re-Evaluation :: Patient appears generally well, patient is no obvious distress, vital signs are stable. Presents to the emergency department with ongoing pain to the left side of her chest, left mid back, left neck that has been ongoing for the last 2 weeks. Differential diagnosis includes pneumonia, muscle skeletal pain, pu lmonary embolus. Pulmonary embolus is low suspicion secondary to patient being on Eliquis, and the pain being exacerbated by movement, palpation. Patient received IV fluids, basic laboratory values, IV Zofran and morphine. On reevaluation, patient was feeling much better. Patient's laboratory values were grossly unremarkable. Patient's creatinine is 1.29, this is slightly elevated since the first of the year. Patient's chest x-ray was unremarked for any acute process. On reevaluation, do believe the patient suffering from cervical radiculopathy. She was placed on gabapentin. She will follow-up closely with her PCP. She is happy the plan of care, all questions answered, stable for discharge <Dr. Rafa Christianson, DO - Last Filed: 02/05/23 22:59> [facility] Lab Data Labs: Laboratory Results - last 24 hr 02/05/23 13:02 WBC 4.8 RBC 4.49 Hgb 13.1 Hct 40.8 MCV 90.9 MCH 29.2 MCHC 32.1 RDW Std Deviation 49.1 H RDW Coeff of [place] 14.7 H Plt Count 200 MPV 9.9 Immature Gran % (Auto) 0.200 Neut % (Auto) 67.6 Lymph % (Auto) 15.7 L [place] % (Auto) 11.3 H Eos % (Auto) 4.6 Baso % (Auto) 0.6 Absolute Neuts (auto) 3.2 Absolute Lymphs (auto) 0.75 L Nucleated RBC % 0 Sodium 138 Potassium 3.9 Chloride 106 Carbon Dioxide 27.0 Anion Gap 5 BUN 21 H Creatinine 1.29 H Est GFR (MDRD) Af Amer 51 L Est GFR (MDRD) Non-Af 42 L BUN/Creatinine Ratio 16.3 Glucose 106 Calcium 8.9 Radiography Diagnostic Testing: Clinical Impression(s) from Imaging Studies Chest X-Ray 02/05/23 13:35 IMPRESSION: Stable chest with no acute or emergent finding. Electronically Signed: Tayo Duran MD at 13:50 EST , Treatment and Re-Evaluation :: Patient appears generally well, patient is no obvious distress, vital signs are stable. Presents to the emergency department with ongoing pain to the left side of her chest, left mid back, left neck that has been ongoing for the last 2 weeks. Differential diagnosis includes pneumonia, muscle skeletal pain, pulmonary embolus. Pulmonary embolus is low suspicion secondary to patient being on Eliquis, and the pain being exacerbated by movement, palpation. Patient received IV fluids, basic laboratory values, IV Zofran and morphine. On reevaluation, patient was feeling much better. Patient's laboratory values were grossly unremarkable. Patient's creatinine is 1.29, this is slightly elevated since the first of the year. Patient's chest x-ray was unremarked for any acute process. On reevaluation, do believe the patient suffering from cervical radiculopathy. She was placed on gabapentin. She will follow-up closely with her PCP. She is happy the plan of care, all questions answered, stable for discharge Attending note: Patient seen and evaluated with firefighter type one. I perform my own [id number] evaluation. I agree with the plan of work-up. 2-week history of nontraumatic pain down her back and left arm. No weakness. History of rheumatoid arthritis. Has seen her PCP was told arthritis. On exam patient positive Spurling's test to the left reporting pain down her medial scapula and left and left arm. There is no weakness. Symptoms did improve with flexion sidebending to the right. Discussed cervical radiculopathy. Discussed already on neuropathic medicine of gabapentin. 300 mg taken in the evenings. Outpatient follow-up with her doctor further evaluation and treatment as needed. All questions were answered. Discharge Plan Triage Chief Complaint: General Illness ED Midlevel Provider: Jose Fox ED Provider: Rafa Christianson Dx/Rx/DC Orders Clinical Impression: Cervical radiculopathy, History of rheumatoid arthritis Instructions: ED Radiculopathy, Cervical Prescriptions: New gabapentin 300 mg capsule 300 mg PO QHS Qty: 30 0RF No Action acetaminophen [Tylenol Arthritis Pain] 650 mg tablet extended release 1,300 mg PO Q12H metoprolol tartrate 50 mg tablet 50 mg PO BID Qty: 180 3RF amiodarone 200 mg tablet 200 mg PO TID folic acid 1 mg tablet 1 mg PO DAILY duloxetine 60 mg capsule,delayed release(DR/EC) 60 mg PO DAILY Qty: 90 3RF metformin 500 mg tablet 500 mg PO BID Qty: 180 3RF allopurinol 100 mg tablet 100 mg PO QHS Qty: 90 3RF furosemide [Lasix] 40 mg tablet 40 mg PO BID 90 Days Qty: 180 3RF cyanocobalamin (vitamin B-12) [Vitamin B-12] 1,000 mcg Tablet 1,000 mcg PO DAILY ascorbic acid (vitamin C) 500 mg Tablet 500 mg PO DAILY cholecalciferol (vitamin D3) 25 mcg (1,000 unit) Tablet 25 mcg PO DAILY vitamin E mixed 400 unit Tablet 400 unit PO DAILY magnesium oxide 400 mg magnesium Tablet 800 mg PO DAILY apixaban 5 mg tablet 5 mg PO BID Qty: 180 3RF spironolactone 25 mg tablet 25 mg PO DAILY Qty: 30 11RF leflunomide 20 mg tablet 20 mg PO DAILY Qty: 90 3RF pantoprazole 40 mg tablet,delayed release (DR/EC) 40 mg PO DAILY Qty: 90 3RF Primary Care Provider: Maria Del Carmen Case NP Referrals: Maria Del Carmen Case NP, [employer] [Primary Care Provider] - 3-5 Days if not improving Activity Restrictions/Additional Instructions: Your history symptoms concerning for left-sided cervical radiculopathy down your long thoracic and your cervical nerves down your arm. Take gabapentin at night as prescribed. Follow-up with your doctor for reevaluation. Disposition Disposition: Home, Self Care Discharge Date/Time: 02/05/23 15:29
--- NOTE | 2023-02-05 13:35 | RAD_ITS ---
STUDY: X-RAY CHEST REASON FOR EXAM: Female, 82 years old. Shortness of breath. TECHNIQUE: Frontal and lateral views of the chest. COMPARISON: March 27, 2022 FINDINGS: Stable cardiomegaly, aortic tortuosity with calcification, prominent central pulmonary arteries, eventration of the right hemidiaphragm and hyperinflation with mild diffuse interstitial prominence in both bases, right greater than left. No acute or emergent finding. No abnormality of the visualized soft tissue structures of the upper abdomen. RAD/Chest PA and Lateral IMPRESSION: Stable chest with no acute or emergent finding. Electronically Signed: Tayo Duran MD at 13:50 EST ,
[2023-02-05 13:49] LABS: Absolute Lymphocyte Count 0.75 X10^3/uL (0.83-4.51); Absolute Neutrophil Count 3.2 X10^3/uL (2.0-7.7); Basophil# 0.03 X10^3/uL; Basophil% 0.6 % (0-1); Eosinophil# 0.22 X10^3/uL; Eosinophils% 4.6 % (0-5); Hematocrit 40.8 % (37-47); Hemoglobin 13.1 g/dL (12.0-15.0); Lymphocyte # 0.75 X10^3/ul (0.83-4.51); Lymphocyte % 15.7 % (19-41); Mean Corp Hgb Conc 32.1 g/dL (32-36); Mean Corpuscular Hgb 29.2 pg (27.0-32.0); Mean Corpuscular Volume 90.9 fL (81-99); Mean Platelet Vol. 9.9 fl (6.2-12.0); Monocyte# 0.54 X10^3/uL; Monocyte% 11.3 % (0-10); NRBC Flagged by Analyzer 0 % (0-5); Neutrophil # 3.22 X10^3/uL (2.7-7.7); Neutrophil % 67.6 % (47-70); Platelet Count 200 K/mm3 (150-450); RBC Distribution Width CV 14.7 % (11.6-14.6); RBC Distribution Width SD 49.1 fl (35.1-43.9); Red Blood Count 4.49 M/mm3 (4.2-5.4); White Blood Count 4.8 K/mm3 (4.4-11.0)
[2023-02-05 14:00] LABS: Anion Gap 5 (5-15); BUN 21 mg/dL (7-18); BUN/Creat Ratio 16.3 RATIO (10-20); Calcium,Total 8.9 mg/dL (8.5-10.1); Chloride 106 mmol/L (98-107); Creatinine, Serum 1.29 mg/dL (0.55-1.02); EST Glomerular Filtration Rate 42 mL/min (>60); Est Glom Filt Rate - Afr Amer 51 mL/min (>60); Glucose 106 mg/dL (74-106); Potassium 3.9 mmol/L (3.5-5.1); Sodium Level 138 mmol/L (136-145)
[2023-02-05] MEDS: Morphine 4 MG/ML Syringe IV (14:10)
[2023-02-05] MEDS: Ondansetron 4 MG/2 ML Vial IV (14:10)
[2023-02-05 14:33] VITALS: BP 134/78; O2SAT 97
[2023-02-05 15:20] VITALS: BP 132/80; PULSE 77; O2SAT 92
== END 2023-02-05 15:29 | disposition home or self-care (01) ==
PROVIDERS: Nurse Practitioner; Emergency Provider Emergency Medicine; PCP Nurse Practitioner; Visit Provider Emergency Medicine
DX: M54.12 Radiculopathy, cervical region (principal); J44.9 Chronic obstructive pulmonary disease, unspecified; I50.9 Heart failure, unspecified; I48.91 Unspecified atrial fibrillation; E11.9 Type 2 diabetes mellitus without complications; G89.29 Other chronic pain; Z79.01 Long term (current) use of anticoagulants
CPT/HCPCS: 71046; 80048; 85025; 93005; 96374; 96375; 99283; J2405

== ENCOUNTER → 2023-02-08 | Outpatient (CLI) | payer MEDICARE, SELFPAY ==
--- NOTE | 2023-02-08 12:55 | RAD_ITS ---
STUDY: X-RAY - CERVICAL SPINE REASON FOR EXAM: Female, 82 years old. Radiculopathy. TECHNIQUE: 8 view(s) of the cervical spine, including lateral flexion and extension views, were obtained. COMPARISON: December 29, 2022 FINDINGS: Marked osteopenia. Normal anterior atlantoaxial articulation. Normal odontoid process. Normal cervical lordosis. Moderate to marked diffuse uncovertebral and facet sclerosis. 3 mm of anterolisthesis of C4 on C5, unchanged. Limited flexion and extension with no abnormal motion. Diffuse intervertebral disc space narrowing with osteophyte formation most marked at C5-6. Anterior bony neural foraminal encroachment from C3-4 to C5-6 bilaterally. Left carotid calcification. RAD/Cerv Spine Obl/Flex/Ext Comp IMPRESSION: Osteopenia with diffuse moderate to marked cervical spondylosis most prominent at C5-6. No acute abnormality or erosive changes. Electronically Signed: Tayo Duran MD at 11:14 EST ,
== END | disposition home or self-care (01) ==
LOC: RAD 12:55
PROVIDERS: PCP Nurse Practitioner; Referring Provider Nurse Practitioner; Visit Provider Nurse Practitioner
DX: M54.12 Radiculopathy, cervical region (principal); Z87.39 Personal history of other diseases of the musculoskeletal system and connective tissue
CPT/HCPCS: 72052

== ENCOUNTER 2023-03-20 17:18 | Emergency (ER) | payer MEDICARE, SELFPAY ==
[2023-03-20 17:20] VITALS: BP 145/85; PULSE 85; RESP 20; TEMP 36.6; O2SAT 96; BMI 31.6
[2023-03-20] MEDS: Mixture 30 ML Bottle 10 ML TOPICAL (18:06)
--- NOTE | 2023-03-20 18:14 | EX.ED.DYSGE1 ---
HPI <ELY Amanda - Last Filed: 03/20/23 19:57> History of Present Illness Chief Complaint: Nosebleed Narrative Narrative: Patient presenting today due to a nosebleed that started this evening. She reports that she bent over to grab something and had a sudden gush of blood from her right nostril. She reports that she did try to plug her nose but did start to notice some of it coming out of the left side. She is on Eliquis due to atrial fibrillation. She denies any trauma to her nose. She has had a nosebleed in the past, around a year ago that did resolve spontaneously. PFSH <ELY Amanda - Last Filed: 03/20/23 19:57> [facility] Medical History Anxiety Arthritis Atrial fibrillation Back pain Congestive heart failure Cystitis without hematuria Diabetes type 2, uncontrolled Essential hypertension Fatigue Fibromyalgia Gout Knee pain Paroxysmal atrial fibrillation Pure hypercholesterolemia Rash of face Submental mass Home Medications acetaminophen 650 mg tablet,extended release (Tylenol Arthritis Pain) 1,300 mg PO Q12H pain 01/31/22 [History Last Taken 03/28/22] ascorbic acid (vitamin C) 500 mg tablet 500 mg PO DAILY SUPPLEMENT 03/29/22 [History Last Taken 03/28/22] cholecalciferol (vitamin D3) 25 mcg (1,000 unit) tablet 25 mcg PO DAILY SUPPLEMENT 03/29/22 [History Last Taken 03/28/22] cyanocobalamin (vitamin B-12) 1,000 mcg tablet (Vitamin B-12) 1,000 mcg PO DAILY SUPPLEMENT 03/29/22 [History Last Taken 03/28/22] magnesium oxide 800 mg PO DAILY SUPPLEMENT 03/29/22 [History Last Taken 03/28/22] vitamin E mixed 400 unit tablet 400 unit PO DAILY SUPPLEMENT 03/29/22 [History Last Taken 03/28/22] duloxetine 60 mg capsule,delayed release 60 mg PO DAILY depression #90 caps 04/10/22 [Rx Last Taken Unknown] metformin 500 mg tablet 500 mg PO BID blood sugars #180 tabs 04/10/22 [Rx Last Taken Unknown] allopurinol 100 mg tablet 100 mg PO QHS gout #90 tabs 09/05/22 [Rx Last Taken Unknown] furosemide 40 mg tablet (Lasix) 40 mg PO BID 90 days #180 tabs 09/05/22 [Rx Last Taken Unknown] apixaban 5 mg tablet 5 mg PO BID blood thinner #180 tabs 12/22/22 [Rx Last Taken Unknown] spironolactone 25 mg tablet 25 mg PO DAILY #30 tabs 12/22/22 [Rx Last Taken Unknown] amiodarone 200 mg tablet 200 mg PO TID 12/26/22 [History Last Taken Unknown] leflunomide 20 mg tablet 20 mg PO DAILY #90 tabs 01/02/23 [Rx Last Taken Unknown] pantoprazole 40 mg tablet,delayed release 40 mg PO DAILY #90 tabs 01/02/23 [Rx Last Taken Unknown] folic acid 1 mg tablet 1 mg PO DAILY 01/10/23 [History Last Taken Unknown] gabapentin 300 mg capsule 300 mg PO QHS #30 caps 02/05/23 [Rx Last Taken Unknown] tramadol 50 mg tablet 50 mg PO BID PRN pain 30 days #60 tabs 02/06/23 [Rx Last Taken Unknown] metoprolol tartrate 50 mg tablet 50 mg PO BID BLOOD PRESSURE #180 tabs 03/20/23 [Rx Last Taken Unknown] Allergy/AdvReac Type Severity Reaction Status Date / Time Sulfa (Sulfonamide Allergy Severe rash Verified 03/20/23 17:20 Antibiotics) contact metal agent Allergy NEEDS Verified 03/20/23 17:20 FOLLOW-UP Family History Father Heart disease Mother Heart disease Rheumatoid arthritis Sister No problems noted. Other CHF (congestive heart failure) Surgical History History of ankle surgery History of appendectomy History of bilateral hip replacements History of tonsillectomy Hx of foot surgery Social History Smoking Status: Never smoker alcohol intake: never substance use type: does not use caffeine: Yes Type: coffee Number of servings: 1 ROS <ELY Amanda - Last Filed: 03/20/23 19:57> ROS ED Constitutional Constitutional ED: Denies chills or fever(s) ENT ENT ED: Reports epistaxis Cardiovascular Cardiovascular: Denies chest pain Respiratory/Chest Respiratory/Chest: Denies cough or dyspnea Gastrointestinal Gastrointestinal: Denies abdominal pain, nausea or vomiting Musculoskeletal Musculoskeletal: Denies arthralgias or myalgias Integumentary Denies Abrasions Neurologic Neurologic: Denies weakness EXAM <ELY Amanda - Last Filed: 03/20/23 19:57> Physical Exam Const Vital Signs: 03/20/23 17:20 Temperature 97.9 F Temperature Source Temporal Pulse Rate 85 Respiratory Rate 20 H Blood Pressure 145/85 H Blood Pressure Mean 105 Pulse Ox 96 Oxygen Delivery Method Room Air Positive well nourished, well developed and no apparent distress General Appearance ED: well developed HEENT Reports normocephalic and head/scalp atraumatic HEENT Narrative: Right anterior nosebleed, bleeding vessel within Ernie box plexus visualized, friable mucosa. No bleeding from the left nostril, no septal hematoma, no septal deviation, no blood in the posterior pharynx. Mouth ED: Yes moist mucous membranes normal Eyes PERRL and EOMs intact bilaterally Neck full ROM and supple Chest Wall inspection of chest normal Resp normal respiratory effort and clear to auscultation bilaterally Cardio regular rate and regular rhythm GI soft to palpation, non-tender, non-distended and no masses Back/Spine normal ROM and normal to inspection Extremity normal to inspection and full ROM Neuro oriented x3, CN's II-XII intact bilaterally, moves all extremities, no focal motor deficits and no sensory deficits noted Sensorium / Orientation: awake and alert Psych mental status grossly normal and thought process normal Skin no rashes or lesions noted and no wounds <Dr. Pj Strauss DO - Last Filed: 03/20/23 21:08> Physical Exam Const Vital Signs: 03/20/23 17:20 Temperature 97.9 F Temperature Source Temporal Pulse Rate 85 Respiratory Rate 20 H Blood Pressure 145/85 H Blood Pressure Mean 105 Pulse Ox 96 Oxygen Delivery Method Room Air MDM <ELY Amanda - Last Filed: 03/20/23 19:57> [facility] Narrative Medical decision making narrative: Patient presents today due to a nosebleed. She is on Eliquis. She applied pressure to her nose with clamps for several minutes, I then had to remove the clamps and blow her nose, several small blood clots came out. Very slight active bleeding. I do see a slight amount of bleeding from an anterior vessel on the right side. Jair mix was applied to cottonball and this was placed in the nose for several more minutes. On reexamination, I am not appreciating any bleeding. She was observed for several minutes and the bleeding did not recur. I have encouraged her to keep her nostrils moisturized over the next few days. I have given her an ENT referral to use as needed. She will be discharged in stable condition and is comfortable with plan. <Dr. Pj Strauss, DO - Last Filed: 03/20/23 21:08> [facility] Narrative Medical decision making narrative: Patient presents today due to a nosebleed. She is on Eliquis. She applied pressure to her nose with clamps for several minutes, I then had to remove the clamps and blow her nose, several small blood clots came out. Very slight active bleeding. I do see a slight amount of bleeding from an anterior vessel on the right side. Jair mix was applied to cottonball and this was placed in the nose for several more minutes. On reexamination, I am not appreciating any bleeding. She was observed for several minutes and the bleeding did not recur. I have encouraged her to keep her nostrils moisturized over the next few days. I have given her an ENT referral to use as needed. She will be discharged in stable condition and is comfortable with plan. I have personally performed a face to face assessment of the patient and have reviewed the [facility]A Note. I performed a substantive portion of the visit including all aspects of the following. My diaz findings include: History is patient presenting with epistaxis. Patient has had this problem in the past was not required ENT referral or packing. Patient appears to have bleeding controlled on my initial examination. Exam is no active bleeding. No clots in the nares. No posterior oropharyngeal blood. Medical Decison Making patient had Jair mix applied. She has been stable here in the department. I gave her nasal pincers should she rebleed. We talked about moisturizing the air and her new ears. She understands that if she bleeds and is not able to stop she would require possibly packing. Discharge Plan Triage Chief Complaint: Nosebleed ED Midlevel Provider: Brenda Lee ED Provider: Pj Strauss Dx/Rx/DC Orders Clinical Impression: Anterior epistaxis Instructions: ED Epistaxis (Adult) Prescriptions: No Action acetaminophen [Tylenol Arthritis Pain] 650 mg tablet extended release 1,300 mg PO Q12H amiodarone 200 mg tablet 200 mg PO TID folic acid 1 mg tablet 1 mg PO DAILY duloxetine 60 mg capsule,delayed release(DR/EC) 60 mg PO DAILY Qty: 90 3RF metformin 500 mg tablet 500 mg PO BID Qty: 180 3RF allopurinol 100 mg tablet 100 mg PO QHS Qty: 90 3RF furosemide [Lasix] 40 mg tablet 40 mg PO BID 90 Days Qty: 180 3RF cyanocobalamin (vitamin B-12) [Vitamin B-12] 1,000 mcg Tablet 1,000 mcg PO DAILY ascorbic acid (vitamin C) 500 mg Tablet 500 mg PO DAILY cholecalciferol (vitamin D3) 25 mcg (1,000 unit) Tablet 25 mcg PO DAILY vitamin E mixed 400 unit Tablet 400 unit PO DAILY magnesium oxide 400 mg magnesium Tablet 800 mg PO DAILY gabapentin 300 mg capsule 300 mg PO QHS Qty: 30 0RF apixaban 5 mg tablet 5 mg PO BID Qty: 180 3RF spironolactone 25 mg tablet 25 mg PO DAILY Qty: 30 11RF leflunomide 20 mg tablet 20 mg PO DAILY Qty: 90 3RF pantoprazole 40 mg tablet,delayed release (DR/EC) 40 mg PO DAILY Qty: 90 3RF tramadol 50 mg tablet 50 mg PO BID PRN (Reason: pain) 30 Days Qty: 60 5RF metoprolol tartrate 50 mg tablet 50 mg PO BID Qty: 180 1RF Primary Care Provider: Maria Del Carmen Case NP Referrals: Kevin Floyd MD [Med Staff - Active Staff] - As Needed Maria Del Carmen Case NP, ASE CERTIFIED TECHNICIAN-C [Primary Care Provider] - 5-7 Days Activity Restrictions/Additional Instructions: Return for any worsening of your symptoms. You can begin moisturizing the insides of your nostrils with a small amount of Vaseline. Disposition Disposition: Home, Self Care Discharge Date/Time: 03/20/23 19:57
--- OUTSIDE RECORDS SUMMARY | 2023-03-20 19:06 | XMS RPT_ITS | CCD ---
Author Name Unknown Address [address] [place] [address] Organization [facility] Care Team Providers Care Credit Specialist Name Role Phone Moris, Beatriz Unavailable Unavailable Moris, Beatriz Unavailable Unavailable Moris, Beatriz Unavailable Unavailable Moris, Beatriz Unavailable Unavailable Moris, Beatriz Unavailable Unavailable Moris, Beatriz Unavailable Unavailable Moris, Beatriz Unavailable Unavailable Moris, Beatriz Unavailable Unavailable Sifuentes, Glenn Unavailable Unavailable Moris, Beatriz Unavailable Unavailable Moris, Beatriz Unavailable Unavailable Moris, Beatriz Unavailable Unavailable Problems Active Problems Problem Classification Problem Date Documented Da te Episodic/Chronic Cardiac dysrhythmias (2 sources) Paroxysmal atrial fibrillation; Translations: [Paroxysmal atrial fibrillation] Onset: 05-10-2017 Chronic Diabetes mellitus without complication (2 sources) Type 2 diabetes mellitus without complications; Translations: [Type 2 diabetes mellitus without complications] Onset: 05-10-2017 Chronic Disorders of lipid metabolism (2 sources) Hyperlipidemia, unspecified; Translations: [Hyperlipidemia, unspecified] Onset: 05-10-2017 Chronic Essential hypertension (2 sources) Essential (primary) hypertension; Translations: [Essential (primary) hypertension] Onset: 05-10-2017 Chronic Gout and other crystal arthropathies (6 sources) Other chondrocalcinosis, right knee; Translations: [Other chondrocalcinosis, left knee] Onset: 11-09-2016 Chronic Osteoarthritis (6 sources) Primary osteoarthritis, right hand; Translations: [Unspecified osteoarthritis, unspecified site] Onset: 11-09-2016 Chronic Other connective tissue disease (2 sources) Presence of right artificial hip joint; Translations: [Presence of right artificial hip joint] Onset: 04-26-2017 Chronic Other connective tissue disease (4 sources) Pain in right hand; Translations: [Fibromyalgia] Onset: 05-10-2017 Episodic Other nervous system disorders (2 sources) Other chronic pain; Translations: [Other chronic pain] Onset: 05-10-2017 Chronic Past or Other Problems Problem Classification Problem Date Documented Da te Episodic/Chronic Allergic reactions (6 sources) Allergy status to other antibiotic agents status; Translations: [Other allergy status, other than to drugs and biological substances] Onset: 05-10-2017 Episodic Coronary atherosclerosis and other heart disease (2 sources) Coronary angioplasty status; Translations: [Coronary angioplasty status] Onset: 05-10-2017 Episodic Joint disorders and dislocations; trauma-related (4 sources) Unspecified subluxation of right knee, initial encounter; Translations: [Unspecified subluxation of left knee, initial encounter] Onset: 11-09-2016 Episodic Nonspecific chest pain (2 sources) Chest pain, unspecified; Translations: [Chest pain, unspecified] Onset: 05-10-2017 Episodic Other aftercare (4 sources) 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; Translations: [nursing home (current) use of aspirin] Onset: 05-10-2017 Episodic Other bone disease and musculoskeletal deformities (2 sources) Other specified disorders of bone density and structure, unspecified site; Translations: [Oth disrd of bone density and structure, unspecified site] Onset: 05-10-2017 Episodic Other lower respiratory disease (2 sources) Shortness of breath; Translations: [Shortness of breath] Onset: 05-10-2017 Episodic Other non-traumatic joint disorders (2 sources) Pain in right hip; Translations: [Pain in right hip] Onset: 04-26-2017 Episodic Other upper respiratory infections (2 sources) Acute upper respiratory infection, unspecified; Translations: [Acute upper respiratory infection, unspecified] Onset: 05-10-2017 Episodic Phlebitis; thrombophlebitis and thromboembolism (2 sources) Personal history of other venous thrombosis and embolism; Translations: [Personal history of other venous thrombosis and embolism] Onset: 05-10-2017 Episodic Pulmonary heart disease (2 sources) Personal history of pulmonary embolism; Translations: [Personal history of pulmonary embolism] Onset: 05-10-2017 Episodic Unclassified (2 sources) Acquired absence of other organs; Translations: [Acquired absence of other organs] Onset: 05-10-2017 Episodic Results Test Name Value Interpretation Reference Range Facil ity Encounters Encounter Date Encounter Type Care Provider Facility Start: 09-19-2017 Patient encounter Beatriz Subramanian [facility] Start: 05-10-2017 Patient encounter Beatriz [facility] Start: 04-26-2017 Patient encounter Beatriz [facility] Start: 11-09-2016 Patient encounter Beatriz [facility] Payers Date Payer Category Payer Policy ID Medicare Summary Purpose Family History No Family History Records FoundNo Family History Records Found Advance Directives No Advanced Directives Records FoundNo Advanced Directives Records Found Hospital Course Note HNO ID: [id number] Author: Nayla nassar ([facility]) [place] Service: Hospital Medicine Author Type: Nurse Practitioner Type: Discharge Summary Filed: 04/20/2019 8:08 AM Note Text: Attestation signed by Nicholas Montemayor at 04/20/2019 2:33 PM Discussed with provider below and I agree with her discharge documentation. Nicholas Montemayor MD DISCHARGE SUMMARY PATIENT NAME: Sydni Orellana Code Status: Not on file Highest Readmission Risk Score: 14 The 30 day readmissions risk score is derived from an internally validated risk model which evaluates patient level characteristics, utilization history, medication orders and lab results up until the day of discharge. Patients with a score of 40 or above are considered highest risk for readmission. Specific patient level drivers will be listed at the bottom of the summary. Admission Informati (more content not included)... Additional Source Comments INFORMATION SOURCE (unrecogn ized section and content) DATE CREATED AUTHOR AUTHOR'S DINH ATION 05/06/2019 [facility] FOR RECORDS PERTAINING TO PATIENTS WHO ARE OR HAVE BEEN ENROLLED IN A CHEMICAL DEPENDENCY/SUBSTANCEABUSE PROGRAM, SOME INFORMATION MAY BE OMITTED. This clinical summary was aggregated from multiple sources. Caution should be exercised in using it in the provision of clinical care. This summary normalizes information from multiple sources, and as a consequence, information in this document may materially change the coding, format and clinical context of patient data. In addition, data may be omitted in some cases. CLINICAL DECISIONS SHOULD BE BASED ON THE PRIMARY CLINICAL RECORDS. [facility] [employer] [facility]. provides no warranty or guarantee of the accuracy or completeness of information in this document.
== END 2023-03-20 19:57 | disposition home or self-care (01) ==
PROVIDERS: Emergency Provider Emergency Medicine; PCP Nurse Practitioner; Visit Provider Emergency Medicine
DX: R04.0 Epistaxis (principal); I48.0 Paroxysmal atrial fibrillation; Z79.01 Long term (current) use of anticoagulants
CPT/HCPCS: 30901; 99282

== ENCOUNTER → 2023-04-19 | Outpatient (CLI) | payer MEDICARE, SELFPAY ==
--- OUTSIDE RECORDS SUMMARY | 2023-04-19 20:09 | XMS RPT_ITS | CCD ---
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; Translations: [[facility] (current) use of aspirin] Onset: 05-10-2017 Episodic [...] Facility Start: 09-19-2017 Patient encounter Beatriz Subramanian [facility] Start: 05-10-2017 Patient encounter Beatriz [facility] Start: 04-26-2017 Patient encounter Beatriz [facility] Start: 11-09-2016 Patient encounter Beatriz Keith [facility] Payers Date Payer Category Payer Policy ID Medicare Summary Purpose Family History No Family History Records FoundNo Family History Records Found Advance Directives No Advanced Directives Records FoundNo Advanced Directives Records Found Hospital Course Note HNO ID: [id number] Author: Nayla nassar ([facility]) [place] Service: Hospital Medicine Author Type: Nurse Practitioner [...] DATE CREATED AUTHOR AUTHOR'S DINH ATION 05/06/2019 [facility] FOR RECORDS PERTAINING TO PATIENTS WHO ARE [...] BE BASED ON THE PRIMARY CLINICAL RECORDS. [facility]. provides no warranty or guarantee of the accuracy or completeness of information in this document.
[2023-04-19 20:16] LABS: Absolute Lymphocyte Count 1.61 X10^3/uL (0.83-4.51); Absolute Neutrophil Count 2.9 X10^3/uL (2.0-7.7); Basophil# 0.03 X10^3/uL; Basophil% 0.6 % (0-1); Eosinophil# 0.08 X10^3/uL; Eosinophils% 1.6 % (0-5); Hematocrit 37.1 % (37-47); Hemoglobin 11.5 g/dL (12.0-15.0); Lymphocyte # 1.61 X10^3/ul (0.83-4.51); Lymphocyte % 31.7 % (19-41); Mean Corpuscular Hgb 29.5 pg (27.0-32.0); Mean Corpuscular Volume 95.1 fL (81-99); Mean Platelet Vol. 10.1 fl (6.2-12.0); Monocyte# 0.45 X10^3/uL; Monocyte% 8.9 % (0-10); NRBC Flagged by Analyzer 0 % (0-5); Platelet Count 212 K/mm3 (150-450); RBC Distribution Width CV 14.8 % (11.6-14.6); RBC Distribution Width SD 51.1 fl (35.1-43.9); White Blood Count 5.1 K/mm3 (4.4-11.0)
[2023-04-19 20:38] LABS: ALB/GLOB Ratio 0.9 RATIO (0.9-2.4); AST(SGOT) 24 U/L (15-37); Alanine Aminotransfer ALT/SGPT 21 U/L (13-56); Albumin, Serum 3.5 g/dL (3.2-5.0); Alkaline Phosphatase 85 U/L (45-117); Anion Gap 6 (5-15); BUN 23 mg/dL (7-18); BUN/Creat Ratio 13.3 RATIO (10-20); Chloride 105 mmol/L (98-107); Cholesterol 192 mg/dL (200); Creatinine, Serum 1.73 mg/dL (0.55-1.02); EST Glomerular Filtration Rate 30 mL/min (>60); Est Glom Filt Rate - Afr Amer 36 mL/min (>60); Globulin 3.8 g/dL (2.2-4.2); Glucose 133 mg/dL (74-106); High Density Lipoprotein 51 mg/dL; Protein, Total 7.3 g/dL (6.4-8.2); Sodium Level 139 mmol/L (136-145); Thyroid Stim Hormone (TSH) 1.14 uIU/mL (0.358-3.74); Triglycerides 314 mg/dL; Uric Acid 4.4 mg/dL (2.6-6.0); Very Low Density Lipoprotein 63 mg/dL (5-40)
[2023-04-20 10:07] LABS: Hemoglobin A1c 5.9 % (3.8-5.6)
== END | disposition home or self-care (01) ==
PROVIDERS: PCP Nurse Practitioner; Referring Provider Nurse Practitioner; Visit Provider Nurse Practitioner
DX: I10 Essential (primary) hypertension (principal); M06.9 Rheumatoid arthritis, unspecified; E11.65 Type 2 diabetes mellitus with hyperglycemia; I48.91 Unspecified atrial fibrillation; E78.00 Pure hypercholesterolemia, unspecified; R55 Syncope and collapse
CPT/HCPCS: 80053; 80061; 83036; 84443; 84550; 85025

== ENCOUNTER 2023-04-28 14:12 | Emergency (ER) | payer MEDICARE, SELFPAY ==
[2023-04-28 14:15] VITALS: BP 156/134; PULSE 66; RESP 18; TEMP 36.5; O2SAT 98
--- NOTE | 2023-04-28 14:31 | EDS_ITS ---
HPI History of Present Illness Chief Complaint: Upper Extremity Injury Detail of Chief Complaint: Severe pain with crack left shoulder and now unable to use Informant: patient and family Occured/Mechanism Comment: Left shoulder pain trauma 2 weeks ago Onset/Context/Timing Onset: Today (Sudden onset of pain followed by a cracking popping sensation left shoulder) Context: Sudden Onset Timing: Continuous Quality of Pain: Sharp, Dull and Aching Location: Left shoulder Current Severity: Mild Maximum Severity: Severe Worsened by: Movement at the shoulder joint. Relieved by: Markedly better with left upper extremity internally rotated and abducted Associated Symptoms Associated Symptoms: Positive for Loss of Funtion; Negative for Parasthesia or Weakness Narrative Narrative: Patient is an 83-year-old [id number] woman who fell 2 weeks ago. She was seen in outside facility and had x-rays at that time was told they were negative. Yesterday she was able to use that arm but was unable to raise the arm above 60 to 90 degrees. She denies history of rotator cuff injury. Daughter gave her a tramadol tablet at 12 noon. Pain is significantly better. Patient denies paresthesia, anesthesia motors. Patient denies trauma since fall. Patient states she has chronic shoulder pain but the left shoulder is significantly worse since the pop earlier today. Prior similar symptoms: Yes Recent Illness/Hospitalization: Yes [facility], [facility] Medical History Anemia Anxiety Arthritis Atrial fibrillation Back pain Congestive heart failure Cystitis without hematuria Diabetes type 2, uncontrolled Essential hypertension Fatigue Fibromyalgia Gout Knee pain Paroxysmal atrial fibrillation Pure hypercholesterolemia Rash of face Submental mass Home Medications acetaminophen 650 mg tablet,extended release (Tylenol Arthritis Pain) 1,300 mg PO Q12H pain 01/31/22 [History Last Taken 03/28/22] ascorbic acid (vitamin C) 500 mg tablet 500 mg PO DAILY SUPPLEMENT 03/29/22 [History Last Taken 03/28/22] cholecalciferol (vitamin D3) 25 mcg (1,000 unit) tablet 25 mcg PO DAILY SUPPLEMENT 03/29/22 [History Last Taken 03/28/22] cyanocobalamin (vitamin B-12) 1,000 mcg tablet (Vitamin B-12) 1,000 mcg PO DAILY SUPPLEMENT 03/29/22 [History Last Taken 03/28/22] duloxetine 60 mg capsule,delayed release 60 mg PO DAILY depression #90 caps 04/10/22 [Rx Last Taken Unknown] metformin 500 mg tablet 500 mg PO BID blood sugars #180 tabs 04/10/22 [Rx Last Taken Unknown] allopurinol 100 mg tablet 100 mg PO QHS gout #90 tabs 09/05/22 [Rx Last Taken Unknown] spironolactone 25 mg tablet 25 mg PO DAILY #30 tabs 12/22/22 [Rx Last Taken Unknown] amiodarone 200 mg tablet 200 mg PO TID 12/26/22 [History Last Taken Unknown] leflunomide 20 mg tablet 20 mg PO DAILY #90 tabs 01/02/23 [Rx Last Taken Unknown] pantoprazole 40 mg tablet,delayed release 40 mg PO DAILY #90 tabs 01/02/23 [Rx Last Taken Unknown] tramadol 50 mg tablet 50 mg PO BID PRN pain 30 days #60 tabs 02/06/23 [Rx Last Taken Unknown] metoprolol tartrate 50 mg tablet 50 mg PO BID BLOOD PRESSURE #180 tabs 03/20/23 [Rx Last Taken Unknown] apixaban 5 mg tablet (Eliquis) 5 mg PO BID 04/28/23 [History Last Taken Unknown] prednisone 10 mg tablet 20 mg PO BID 04/28/23 [History Last Taken Unknown] Allergy/AdvReac Type Severity Reaction Status Date / Time Sulfa (Sulfonamide Allergy Severe rash Verified 04/28/23 14:14 Antibiotics) contact metal agent Allergy NEEDS Verified 04/28/23 14:14 FOLLOW-UP Family History Father Heart disease Mother Heart disease Rheumatoid arthritis Sister No problems noted. Other CHF (congestive heart failure) Surgical History History of ankle surgery History of appendectomy History of bilateral hip replacements History of tonsillectomy Hx of foot surgery Social History Smoking Status: Never smoker alcohol intake: never substance use type: does not use caffeine: Yes Type: coffee Number of servings: 1 ROS ROS ED Constitutional Constitutional ED: Denies chills, fever(s), sweats or weight loss Musculoskeletal Musculoskeletal: Reports other Details: Per HPI narrative ; Denies back pain, myalgias or neck pain Integumentary Denies Abrasions or rash Neurologic Neurologic: Denies paresthesias or weakness Psychiatric Psychiatric: Denies anxiety or depression Hematologic/Lymphatic Hematologic/Lymphatic: Denies easy bleeding or easy bruising EXAM Physical Exam Const Vital Signs: 04/28/23 14:15 Temperature 97.7 F L Temperature Source Temporal Pulse Rate 66 Respiratory Rate 18 Blood Pressure 156/134 H Blood Pressure Mean 141 Pulse Ox 98 Oxygen Delivery Method Room Air Positive well nourished, well developed and obese General Appearance ED: well developed and NAD Nutritional Appearance: obese HEENT Reports moist mucous membranes normocephalic and atraumatic Eyes PERRL and EOMs intact bilaterally Neck full ROM and supple Chest Wall inspection of chest normal and palpation of chest normal Resp normal respiratory effort and clear to auscultation bilaterally Cardio regular rate, regular rhythm, S1 normal heart sound, S2 normal heart sound and no murmurs Extremity normal to inspection; Negative for full ROM Extremity Narrative: There is pain outpatient over the supraspinatus region and proximal left humerus. Axillary, medial, radial and ulnar function intact. There is no pain ovation over the lateral medial epicondyle, lateral process or radial head. Is no pain the patient with distal radius or ulna. There is no pain the patient of the carpal bones, metacarpal bones or phalanges. Radial pulses palpable. Neuro oriented x3, CN's II-XII intact bilaterally, moves all extremities, no focal motor deficits and no sensory deficits noted Sensorium / Orientation: alert Psych mental status grossly normal Skin General Skin Exam: Negative for petechiae Lesions: no lesions Rashes: no rashes MDM MDM MDM Narrative Medical decision making narrative: Differential diagnosis is muscle strain, rotator cuff tear delayed fracture. Will obtain x-ray of the shoulder. Patient was offered pain medicine. I was informed by daughter that she gave her a tramadol tablet at noon. There is no record of imaging in the last 2 to 3 weeks at [facility]. Her last note at [facility] was January 2023. Of note there is no history of gout or pseudogout. She is not on a thiazide diuretic. Radiography Chest X-Ray - ED: Read by ED Physician (4 views of the left shoulder were independent reviewed interpreted by me at 1502. There is degenerative changes noted. There is no evidence of subluxation, dislocation or fracture.) Diagnostic Testing: The radiologist noted there is some changes which may be due to trauma. There is no acute findings. Discharge Plan Triage Chief Complaint: Upper Extremity Injury ED Provider: Blake Agustin Dx/Rx/DC Orders Clinical Impression: Acute pain of left shoulder due to trauma, Essential hypertension, Paroxysmal atrial fibrillation, Diabetes type 2, uncontrolled, Limited range of motion (ROM) of shoulder Instructions: ED Shoulder Pain, Uncertain Cause Prescriptions: No Action acetaminophen [Tylenol Arthritis Pain] 650 mg tablet extended release 1,300 mg PO Q12H amiodarone 200 mg tablet 200 mg PO TID duloxetine 60 mg capsule,delayed release(DR/EC) 60 mg PO DAILY Qty: 90 3RF metformin 500 mg tablet 500 mg PO BID Qty: 180 3RF allopurinol 100 mg tablet 100 mg PO QHS Qty: 90 3RF cyanocobalamin (vitamin B-12) [Vitamin B-12] 1,000 mcg Tablet 1,000 mcg PO DAILY ascorbic acid (vitamin C) 500 mg Tablet 500 mg PO DAILY cholecalciferol (vitamin D3) 25 mcg (1,000 unit) Tablet 25 mcg PO DAILY Eliquis 5 mg tablet 5 mg PO BID prednisone 10 mg tablet 20 mg PO BID Patient Comments: TAKE 2 TABLETS BY MOUTH TWICE DAILY FOR 4 DAYS THEN TAKE 1 TABLETS TWICE DAILY FOR 4 DAYS THEN TAKE 1 TABLET DAILY FOR 4 DAYS THEN TAKE 1/2 (ONE-HALF) TABLET DAILY FOR 2 DAYS spironolactone 25 mg tablet 25 mg PO DAILY Qty: 30 11RF leflunomide 20 mg tablet 20 mg PO DAILY Qty: 90 3RF pantoprazole 40 mg tablet,delayed release (DR/EC) 40 mg PO DAILY Qty: 90 3RF tramadol 50 mg tablet 50 mg PO BID PRN (Reason: pain) 30 Days Qty: 60 5RF metoprolol tartrate 50 mg tablet 50 mg PO BID Qty: 180 1RF Primary Care Provider: Maria Del Carmen Case NP Referrals: Benjamin Lindo DO [Med Staff - Active Staff] - 5-7 Days Maria Del Carmen Case NP, [employer]HAUL DRIVER-C [Primary Care Provider] - Disposition Disposition: Home, Self Care
--- OUTSIDE RECORDS SUMMARY | 2023-04-28 14:40 | XMS RPT_ITS | CCD ---
Author Name Unknown Address [address] [place] [address] Organization [facility] Care Team Providers Care Parking Ramp Attendant Name Role Phone Moris, Beatriz Unavailable Unavailable Moris, Beatriz Unavailable Unavailable Moris, Beatriz Unavailable Unavailable Moris, Beatriz Unavailable Unavailable Moirs, Beatriz Unavailable Unavailable Moris, Beatriz Unavailable Unavailable [...] Onset: 05-10-2017 Episodic Other aftercare (4 sources) jail (current) use of anticoagulants; Translations: [jail (current) use of aspirin] Onset: 05-10-2017 Episodic [...] Facility Start: 09-19-2017 Patient encounter Beatriz Subramanian [facility] Start: 05-10-2017 Patient encounter Beatriz [facility] Start: 04-26-2017 Patient encounter Beatriz Keith [facility] Start: 11-09-2016 Patient encounter Beatriz Keith [facility] Payers Date Payer Category Payer Policy ID Medicare Summary Purpose Family History No Family History Records FoundNo Family History Records Found Advance Directives No Advanced Directives Records FoundNo Advanced Directives Records Found Hospital Course Note HNO ID: [id number] Author: Nayla nassar ([facility]) [place] Service: Hospital Medicine Author Type: Nurse Practitioner [...] DATE CREATED AUTHOR AUTHOR'S DINH ATION 05/06/[address] [facility] FOR RECORDS PERTAINING TO PATIENTS WHO [...] BE BASED ON THE PRIMARY CLINICAL RECORDS. [facility] [employer] [facility]. provides no warranty or guarantee of the accuracy or completeness of information in this document.
[2023-04-28 14:41] VITALS: BMI 30.4
--- NOTE | 2023-04-28 14:54 | RAD_ITS ---
STUDY: X-RAY - LEFT SHOULDER REASON FOR EXAM: Female, 83 years old. Pain after a fall TECHNIQUE: 4 view(s) of the shoulder. COMPARISON: 12/29/2022 FINDINGS: There is been some change in the medial aspect of the humeral head since the previous study suggesting either postsurgical change or resorption in the interval between the previous study and this one. No demonstrated acute humeral fracture, stable acromioclavicular joint arthrosis, no upper rib fracture or pneumothorax. RAD/Shoulder min 2 Views IMPRESSION: Preservation of the glenohumeral joint since the previous study but there is a change in appearance of the medial aspect of the humeral head since the previous study suggesting posttraumatic or postsurgical changes since the previous study Stable acromioclavicular joint arthrosis No upper rib fracture or pneumothorax Electronically Signed: Eulalio Pringle MD at 15:10 EST ,
[2023-04-28 15:43] VITALS: BP 155/75; PULSE 65; RESP 16; TEMP 36.8; O2SAT 95
== END 2023-04-28 15:45 | disposition home or self-care (01) ==
PROVIDERS: Emergency Provider Emergency Medicine; PCP Nurse Practitioner; Visit Provider Emergency Medicine
DX: S49.92XA Unspecified injury of left shoulder and upper arm, initial encounter (principal); I11.0 Hypertensive heart disease with heart failure; I50.9 Heart failure, unspecified; I48.0 Paroxysmal atrial fibrillation; E11.9 Type 2 diabetes mellitus without complications; M25.512 Pain in left shoulder; E66.9 Obesity, unspecified; Z79.899 Other long term (current) drug therapy; W19.XXXA Unspecified fall, initial encounter
CPT/HCPCS: 73030; 99282

== ENCOUNTER → 2023-05-15 | Outpatient (CLI) | payer MEDICARE, SELFPAY ==
[2023-05-15 15:42] LABS: Absolute Lymphocyte Count 1.28 X10^3/uL (0.83-4.51); Absolute Neutrophil Count 5.7 X10^3/uL (2.0-7.7); Basophil# 0.04 X10^3/uL; Basophil% 0.5 % (0-1); Eosinophil# 0.07 X10^3/uL; Eosinophils% 0.9 % (0-5); Hematocrit 36.4 % (37-47); Hemoglobin 11.5 g/dL (12.0-15.0); Lymphocyte # 1.28 X10^3/ul (0.83-4.51); Lymphocyte % 16.6 % (19-41); Mean Corp Hgb Conc 31.6 g/dL (32-36); Mean Corpuscular Hgb 30.3 pg (27.0-32.0); Mean Corpuscular Volume 95.8 fL (81-99); Mean Platelet Vol. 9.4 fl (6.2-12.0); Monocyte# 0.57 X10^3/uL; Monocyte% 7.4 % (0-10); NRBC Flagged by Analyzer 0 % (0-5); Neutrophil # 5.71 X10^3/uL (2.7-7.7); Neutrophil % 74.2 % (47-70); Platelet Count 217 K/mm3 (150-450); RBC Distribution Width CV 14.6 % (11.6-14.6); White Blood Count 7.7 K/mm3 (4.4-11.0)
[2023-05-15 15:45] LABS: Color, Urine Yellow (Yellow); Glucose, Dipstick Normal (Normal); Ketone-Dipstick 5 mg/dl (Negative); Leukocyte Esterase-Dipstick 500 /ul (Negative); Nitrite-Dipstick Negative (Negative); Occult Blood-Urine 250 /ul (Negative); Protein-Dipstick 30 mg/dl (Negative); Specific Gravity, Urine 1.025 (1.002-1.030); Urine Clarity Sl. Cloudy (Clear); Urine Urobilinogen 1 mg/dl (Normal)
[2023-05-15 15:47] LABS: Urine Bilirubin Dipstick 1 mg/dL (Negative)
[2023-05-15 16:33] LABS: Anion Gap 7 (5-15); BNP,B-Type NATRIURETIC PEPTIDE 260.2 pg/mL (0-100); BUN 27 mg/dL (7-18); BUN/Creat Ratio 18.4 RATIO (10-20); Calcium,Total 8.7 mg/dL (8.5-10.1); Chloride 108 mmol/L (98-107); Creatinine, Serum 1.47 mg/dL (0.55-1.02); EST Glomerular Filtration Rate 36 mL/min (>60); Est Glom Filt Rate - Afr Amer 43 mL/min (>60); Glucose 103 mg/dL (74-106); Potassium 4.8 mmol/L (3.5-5.1); Sodium Level 141 mmol/L (136-145)
--- OUTSIDE RECORDS SUMMARY | 2023-05-15 19:39 | XMS RPT_ITS | CCD ---
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; Translations: [[facility] (current) use of aspirin] Onset: 05-10-2017 Episodic [...] Facility Start: 09-19-2017 Patient encounter Beatriz Subramanian [facility] Start: 05-10-2017 Patient encounter Beatriz Keith [facility] Start: 04-26-2017 Patient encounter Beatriz Keith [facility] Start: 11-09-2016 Patient encounter Beatriz Keith [facility] Payers Date Payer Category Payer Policy ID Medicare Summary Purpose Family History No Family History Records FoundNo Family History Records Found Advance Directives No Advanced Directives Records FoundNo Advanced Directives Records Found Hospital Course Note HNO ID: [id number] Author: Nayla nassar ([facility]) [place] Service: Hospital Medicine Author Type: Nurse Practitioner [...] DATE CREATED AUTHOR AUTHOR'S DINH ATION 05/06/2019 [facility] FOR RECORDS PERTAINING TO PATIENTS WHO [...] BE BASED ON THE PRIMARY CLINICAL RECORDS. [facility] [employer] [facility]. provides no warranty or guarantee of the accuracy or completeness of information in this document.
== END | disposition home or self-care (01) ==
LOC: LAB 14:40
PROVIDERS: PCP Nurse Practitioner; Referring Provider Nurse Practitioner Gerontology; Visit Provider Nurse Practitioner Gerontology
DX: R30.0 Dysuria (principal); R06.09 Other forms of dyspnea
CPT/HCPCS: 36415; 80048; 81002; 83880; 85025; 87086; 87088

== ENCOUNTER → 2023-05-22 | Outpatient (CLI) | payer MEDICARE, SELFPAY ==
--- OUTSIDE RECORDS SUMMARY | 2023-05-22 23:57 | XMS RPT_ITS | CCD ---
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] Onset: 05-10-2017 Episodic [...] Facility Start: 09-19-2017 Patient encounter Beatriz Subramanian [facility] Start: 05-10-2017 Patient encounter Beatriz Keith [facility] Start: 04-26-2017 Patient encounter Beatriz Keith [facility] Start: 11-09-2016 Patient encounter Beatriz Keith [facility] Payers Date Payer Category Payer Policy ID Medicare Summary Purpose Family History No Family History Records FoundNo Family History Records Found Advance Directives No Advanced Directives Records FoundNo Advanced Directives Records Found Hospital Course Note HNO ID: [id number] Author: Nayla nassar ([facility]) [place] Service: Hospital Medicine Author Type: Nurse Practitioner [...] DATE CREATED AUTHOR AUTHOR'S DINH ATION 05/06/2019 [facility] FOR RECORDS PERTAINING TO PATIENTS WHO [...] BE BASED ON THE PRIMARY CLINICAL RECORDS. [facility]. provides no warranty or guarantee of the accuracy or completeness of information in this document.
== END | disposition home or self-care (01) ==
LOC: PSN 10:37
PROVIDERS: PCP Nurse Practitioner; Referring Provider Nurse Practitioner Gerontology; Visit Provider Nurse Practitioner Gerontology
DX: R06.09 Other forms of dyspnea (principal); Z79.899 Other long term (current) drug therapy
CPT/HCPCS: 94060; 94726; 94729

== ENCOUNTER 2023-08-08 21:54 | Outpatient (CLI) | payer MEDICARE, SELFPAY ==
[2023-08-08 22:14] LABS: Absolute Lymphocyte Count 1.58 X10^3/uL (0.83-4.51); Absolute Neutrophil Count 3.3 X10^3/uL (2.0-7.7); Basophil# 0.03 X10^3/uL; Basophil% 0.5 % (0-1); Eosinophil# 0.09 X10^3/uL; Eosinophils% 1.6 % (0-5); Hematocrit 36.2 % (37-47); Hemoglobin 11.3 g/dL (12.0-15.0); Lymphocyte # 1.58 X10^3/ul (0.83-4.51); Lymphocyte % 28.3 % (19-41); Mean Corp Hgb Conc 31.2 g/dL (32-36); Mean Corpuscular Hgb 28.3 pg (27.0-32.0); Mean Corpuscular Volume 90.5 fL (81-99); Mean Platelet Vol. 10.3 fl (6.2-12.0); Monocyte# 0.59 X10^3/uL; Monocyte% 10.6 % (0-10); NRBC Flagged by Analyzer 0 % (0-5); Neutrophil # 3.28 X10^3/uL (2.7-7.7); Neutrophil % 58.6 % (47-70); Platelet Count 257 K/mm3 (150-450); RBC Distribution Width CV 13.8 % (11.6-14.6); RBC Distribution Width SD 45.2 fl (35.1-43.9); White Blood Count 5.6 K/mm3 (4.4-11.0)
[2023-08-08 22:48] LABS: AST(SGOT) 16 U/L (15-37); Alanine Aminotransfer ALT/SGPT 18 U/L (13-56); Albumin, Serum 3.6 g/dL (3.2-5.0); Alkaline Phosphatase 72 U/L (45-117); Anion Gap 9 (5-15); BUN 22 mg/dL (7-18); BUN/Creat Ratio 15.3 RATIO (10-20); Calcium,Total 8.7 mg/dL (8.5-10.1); Chloride 107 mmol/L (98-107); Creatinine, Serum 1.44 mg/dL (0.55-1.02); EST Glomerular Filtration Rate 37 mL/min (>60); Est Glom Filt Rate - Afr Amer 45 mL/min (>60); Ferritin 79 ng/mL (8-252); Globulin 3.5 g/dL (2.2-4.2); Glucose 105 mg/dL (74-106); Iron 62 ug/dL (50-170); Iron Binding Capacity,Total 363 ug/dL (250-450); Magnesium 1.8 mg/dL (1.6-2.6); PERCENT IRON SATURATION 17.1 % (15.0-55.0); Potassium 3.7 mmol/L (3.5-5.1); Protein, Total 7.1 g/dL (6.4-8.2); Sodium Level 140 mmol/L (136-145); Thyroid Stim Hormone (TSH) 1.52 uIU/mL (0.358-3.74)
[2023-08-08 22:50] LABS: Hemoglobin A1c 5.7 % (3.8-5.6)
== END 2023-08-08 23:59 | disposition home or self-care (01) ==
PROVIDERS: PCP Nurse Practitioner; Visit Provider Nurse Practitioner
DX: I12.9 Hypertensive chronic kidney disease with stage 1 through stage 4 chronic kidney disease, or unspecified chronic kidney disease (principal); I48.91 Unspecified atrial fibrillation; E11.22 Type 2 diabetes mellitus with diabetic chronic kidney disease; E11.65 Type 2 diabetes mellitus with hyperglycemia; N18.32 Chronic kidney disease, stage 3b; D63.1 Anemia in chronic kidney disease; E03.9 Hypothyroidism, unspecified
CPT/HCPCS: 80053; 82728; 83036; 83540; 83550; 83735; 84443; 85025

== ENCOUNTER → 2023-08-21 | Outpatient (CLI) | payer MEDICARE, SELFPAY ==
[2023-08-21 16:09] LABS: BNP,B-Type NATRIURETIC PEPTIDE 191.6 pg/mL (0-100)
[2023-08-21 16:33] LABS: Anion Gap 8 (5-15); BUN 28 mg/dL (7-18); BUN/Creat Ratio 18.3 RATIO (10-20); Chloride 104 mmol/L (98-107); Creatinine, Serum 1.53 mg/dL (0.55-1.02); EST Glomerular Filtration Rate 34 mL/min (>60); Est Glom Filt Rate - Afr Amer 41 mL/min (>60); Glucose 157 mg/dL (74-106); Potassium 3.1 mmol/L (3.5-5.1); Sodium Level 138 mmol/L (136-145)
== END | disposition home or self-care (01) ==
LOC: LAB 13:40
PROVIDERS: PCP Nurse Practitioner; Referring Provider Nurse Practitioner Gerontology; Visit Provider Nurse Practitioner Gerontology
DX: I50.9 Heart failure, unspecified (principal); R06.09 Other forms of dyspnea
CPT/HCPCS: 36415; 80048; 83880

== ENCOUNTER → 2023-08-29 | Outpatient (CLI) | payer MEDICARE, SELFPAY ==
[2023-08-29 14:50] LABS: Anion Gap 10 (5-15); BUN 28 mg/dL (7-18); BUN/Creat Ratio 17.9 RATIO (10-20); Calcium,Total 9.1 mg/dL (8.5-10.1); Chloride 105 mmol/L (98-107); Creatinine, Serum 1.56 mg/dL (0.55-1.02); EST Glomerular Filtration Rate 34 mL/min (>60); Est Glom Filt Rate - Afr Amer 41 mL/min (>60); Glucose 113 mg/dL (74-106); Potassium 3.8 mmol/L (3.5-5.1); Sodium Level 141 mmol/L (136-145)
== END | disposition home or self-care (01) ==
LOC: LAB 12:43
PROVIDERS: PCP Nurse Practitioner; Referring Provider Nurse Practitioner Gerontology; Visit Provider Nurse Practitioner Gerontology
DX: E87.6 Hypokalemia (principal)
CPT/HCPCS: 36415; 80048

== ENCOUNTER → 2024-04-02 | Outpatient (CLI) | payer MEDICARE, SELFPAY ==
[2024-04-02 22:33] LABS: Absolute Lymphocyte Count 1.17 X10^3/uL (0.83-4.51); Absolute Neutrophil Count 2.8 X10^3/uL (2.0-7.7); Basophil# 0.06 X10^3/uL; Basophil% 1.3 % (0-1); Eosinophil# 0.14 X10^3/uL; Eosinophils% 3.1 % (0-5); Hematocrit 35.2 % (37-47); Hemoglobin 11.1 g/dL (12.0-15.0); Lymphocyte # 1.17 X10^3/ul (0.83-4.51); Lymphocyte % 25.9 % (19-41); Mean Corp Hgb Conc 31.5 g/dL (32-36); Mean Corpuscular Hgb 28.5 pg (27.0-32.0); Mean Corpuscular Volume 90.3 fL (81-99); Mean Platelet Vol. 10.4 fl (6.2-12.0); Monocyte# 0.34 X10^3/uL; Monocyte% 7.5 % (0-10); NRBC Flagged by Analyzer 0 % (0-5); Neutrophil # 2.79 X10^3/uL (2.7-7.7); Platelet Count 200 K/mm3 (150-450); RBC Distribution Width CV 14.6 % (11.6-14.6); RBC Distribution Width SD 48.2 fl (35.1-43.9); White Blood Count 4.5 K/mm3 (4.4-11.0)
[2024-04-02 22:56] LABS: ALB/GLOB Ratio 0.9 RATIO (0.9-2.4); AST(SGOT) 12 U/L (15-37); Alanine Aminotransfer ALT/SGPT 14 U/L (13-56); Albumin, Serum 3.4 g/dL (3.2-5.0); Alkaline Phosphatase 79 U/L (45-117); Anion Gap 9 (5-15); BUN 19 mg/dL (7-18); BUN/Creat Ratio 13.3 RATIO (10-20); Calcium,Total 8.9 mg/dL (8.5-10.1); Chloride 107 mmol/L (98-107); Cholesterol 152 mg/dL (200); Creatinine, Serum 1.43 mg/dL (0.55-1.02); EST Glomerular Filtration Rate 37 mL/min (>60); Est Glom Filt Rate - Afr Amer 45 mL/min (>60); Globulin 3.6 g/dL (2.2-4.2); Glucose 106 mg/dL (74-106); High Density Lipoprotein 53 mg/dL; Potassium 3.8 mmol/L (3.5-5.1); Sodium Level 141 mmol/L (136-145); Triglycerides 184 mg/dL; Very Low Density Lipoprotein 37 mg/dL (5-40)
[2024-04-02 23:03] LABS: Hemoglobin A1c 5.6 % (3.8-5.6)
== END | disposition home or self-care (01) ==
PROVIDERS: PCP Nurse Practitioner; Referring Provider Nurse Practitioner; Visit Provider Nurse Practitioner
DX: I12.9 Hypertensive chronic kidney disease with stage 1 through stage 4 chronic kidney disease, or unspecified chronic kidney disease (principal); M06.09 Rheumatoid arthritis without rheumatoid factor, multiple sites; I48.0 Paroxysmal atrial fibrillation; E11.22 Type 2 diabetes mellitus with diabetic chronic kidney disease; E11.65 Type 2 diabetes mellitus with hyperglycemia; N18.32 Chronic kidney disease, stage 3b; D63.1 Anemia in chronic kidney disease
CPT/HCPCS: 80053; 80061; 83036; 85025

== ENCOUNTER → 2024-05-28 | Outpatient (CLI) | payer MEDICARE, SELFPAY ==
[2024-05-28 21:38] LABS: Absolute Lymphocyte Count 1.53 X10^3/uL (0.83-4.51); Absolute Neutrophil Count 2.9 X10^3/uL (2.0-7.7); Basophil# 0.04 X10^3/uL; Basophil% 0.8 % (0-1); Eosinophil# 0.14 X10^3/uL; Eosinophils% 2.7 % (0-5); Hematocrit 35.6 % (37-47); Hemoglobin 11.2 g/dL (12.0-15.0); Lymphocyte # 1.53 X10^3/ul (0.83-4.51); Lymphocyte % 29.7 % (19-41); Mean Corp Hgb Conc 31.5 g/dL (32-36); Mean Corpuscular Hgb 28.3 pg (27.0-32.0); Mean Corpuscular Volume 89.9 fL (81-99); Mean Platelet Vol. 10.6 fl (6.2-12.0); Monocyte# 0.51 X10^3/uL; Monocyte% 9.9 % (0-10); NRBC Flagged by Analyzer 0 % (0-5); Neutrophil # 2.92 X10^3/uL (2.7-7.7); Neutrophil % 56.7 % (47-70); Platelet Count 227 K/mm3 (150-450); RBC Distribution Width CV 15.1 % (11.6-14.6); RBC Distribution Width SD 49.6 fl (35.1-43.9); Red Blood Count 3.96 M/mm3 (4.2-5.4); White Blood Count 5.2 K/mm3 (4.4-11.0)
[2024-05-28 23:46] LABS: ALB/GLOB Ratio 1.3 RATIO (0.9-2.4); AST(SGOT) 18 U/L (<=31); Alanine Aminotransfer ALT/SGPT 10 U/L (<=34); Albumin, Serum 4.2 g/dL (3.4-4.8); Alkaline Phosphatase 89 U/L (35-104); Anion Gap 13 (5-15); BUN 28 mg/dL (4-19); BUN/Creat Ratio 15.6 RATIO (10-20); Calcium,Total 9.4 mg/dL (7.6-11.0); Carbon Dioxide 27.5 mmol/L (21.0-32.0); Chloride 100 mmol/L (98-108); Creatinine, Serum 1.78 mg/dL (0.70-1.20); EST Glomerular Filtration Rate 27 (>60); Globulin 3.1 g/dL (2.2-4.2); Glucose 112 mg/dL (70-99); Potassium 4.8 mmol/L (3.3-5.1); Protein, Total 7.3 g/dL (5.9-8.4); Sodium Level 140 mmol/L (133-145)
[2024-05-28 23:58] LABS: Pro- Brain NATRIURETIC PEPTIDE 2294 pg/mL (<=1800)
== END | disposition home or self-care (01) ==
PROVIDERS: PCP Nurse Practitioner; Referring Provider Nurse Practitioner; Visit Provider Nurse Practitioner
DX: G57.93 Unspecified mononeuropathy of bilateral lower limbs (principal); I50.9 Heart failure, unspecified; E11.22 Type 2 diabetes mellitus with diabetic chronic kidney disease; N18.32 Chronic kidney disease, stage 3b; D63.1 Anemia in chronic kidney disease
CPT/HCPCS: 80053; 83036; 83880; 85025

== ENCOUNTER → 2024-05-30 | Outpatient (CLI) | payer MEDICARE, SELFPAY ==
--- NOTE | 2024-05-30 11:22 | ECHOD_ITS ---
Reason For Study : CHF Procedure This was a 2D Doppler, Color Flow transthoracic echocardiogram. Exam performed in department. Left Ventricle Normal LV size. Left ventricular systolic function is normal. The left ventricular ejection fraction is 70 %. No regional wall motion abnormalities noted. Right Ventricle Normal RV size. Normal systolic function. Atria The left and right atria are normal. 1 cm x 1.4 cm calcified mass attached in the left atrium. Normal right atrium. Mitral Valve There is moderate mitral annular calcification. Tricuspid Valve Normal tricuspid valve. Mild (1+) tricuspid valve insufficiency. Pulmonary artery systolic pressure is 52 mmHg. Aortic Valve Trisinus/trileaflet aortic valve. Moderate focal aortic valve calcification. Mild (1+) aortic valve insufficiency. Pulmonic Valve Normal pulmonic valve. Great Vessels Normal aortic root. The pulmonary artery is normal size. Normal inferior vena cava. Pericardium/Pleural No pericardial effusion. MMode/2D Measurements & Calculations LVIDd: 4.1 cm IVSd: 1.2 cm LVOT diam: 2.0 cm LVIDs: 2.6 cm LVPWd: 1.5 cm LVOT area: 3.1 cm2 RVDd: 3.3 cm FS: 37.8 % Ao root diam: 3.4 cm LAV(MOD-bp): 79.4 ml LVAd ap4: 20.2 cm2 LAV(MOD-bp) Indexed: 48.8 ml/m2 LVLd ap4: 6.7 cm LAV(MOD-sp2): 86.3 ml EDV(MOD-sp4): 50.2 ml LAV(MOD-sp4): 65.3 ml EDV(sp4-el): 51.3 ml LVAs ap4: 10.0 cm2 LVLs ap4: 5.6 cm ESV(MOD-sp4): 16.8 ml ESV(sp4-el): 15.1 ml EF(MOD-sp4): 66.5 % EF(sp4-el): 70.5 % SV(MOD-sp4): 33.4 ml SV(sp4-el): 36.2 ml LA A4 area: 20.7 cm2 SI(MOD-sp4): 20.5 ml/m2 LA dimension(2D): 4.4 cm RA A4 area: 12.9 cm2 Time Measurements MV dec time: 0.21 sec Doppler Measurements & Calculations MV E max bridger: 141.4 cm/sec Lat Peak E' Bridger: 8.5 cm/sec Med Peak E' Bridger: 5.2 cm/sec MV A max bridger: 59.1 cm/sec E/E' lat: 16.6 E/E' med: 27.4 MV E/A: 2.4 MV V2 max: 154.0 cm/sec Ao V2 max: 157.1 cm/sec MV max P.5 mmHg MV dec slope: 664.6 cm/sec2 Ao max P.9 mmHg MV V2 mean: 82.6 cm/sec Ao V2 mean: 106.3 cm/sec MV mean P.3 mmHg Ao mean P.3 mmHg MV V2 VTI: 36.6 cm Ao V2 VTI: 32.9 cm AV (velocity ratio): 0.84 MVA(VTI): 2.3 cm2 SUSAN(I,D): 2.6 cm2 SUSAN(V,D): 2.5 cm2 AI max bridger: 420.3 cm/sec LV V1 max: 129.0 cm/sec SV(LVOT): 85.1 ml AI max P.7 mmHg LV V1 max P.7 mmHg LV V1 mean P.2 mmHg AI dec slope: 222.7 cm/sec2 LV V1 mean: 81.4 cm/sec AI P1/2t: 552.8 msec LV V1 VTI: 27.7 cm PA V2 max: 64.2 cm/sec TR max bridger: 342.8 cm/sec PA V2 mean: 42.5 cm/sec TR max P.0 mmHg ECHO/Echo Complete Interpretation Summary Normal LV size. Left ventricular systolic function is normal. The left ventricular ejection fraction is 70 %. 1 cm x 1.4 cm calcified mass attached in the left atrium.(This was present in 2 022 but not reported on.) Pulmonary artery systolic pressure is 52 mmHg. Ordering Physician: Joselyn Wilcox Referring Physician: Joselyn Wilcox Performed By: Tatianna Salcedo RCS
== END | disposition home or self-care (01) ==
LOC: CVS 11:12
PROVIDERS: PCP Nurse Practitioner; Referring Provider Physician Assistant Medical; Visit Provider Physician Assistant Medical
DX: I50.31 Acute diastolic (congestive) heart failure (principal); N28.9 Disorder of kidney and ureter, unspecified; R60.0 Localized edema; R06.09 Other forms of dyspnea
CPT/HCPCS: 93306

== ENCOUNTER → 2024-06-04 | Outpatient (CLI) | payer MEDICARE, SELFPAY ==
[2024-06-04 14:40] LABS: Anion Gap 12 (5-15); BUN 27 mg/dL (4-19); BUN/Creat Ratio 16.7 RATIO (10-20); Carbon Dioxide 28.2 mmol/L (21.0-32.0); Chloride 100 mmol/L (98-108); Creatinine, Serum 1.63 mg/dL (0.70-1.20); EST Glomerular Filtration Rate 31 (>60); Glucose 96 mg/dL (70-99); Sodium Level 141 mmol/L (133-145)
== END | disposition home or self-care (01) ==
LOC: LAB 12:12
PROVIDERS: PCP Nurse Practitioner; Referring Provider Physician Assistant Medical; Visit Provider Physician Assistant Medical
DX: I48.19 Other persistent atrial fibrillation (principal)
CPT/HCPCS: 36415; 80048

== ENCOUNTER → 2024-07-01 | Outpatient (CLI) | payer MEDICARE, SELFPAY | END | disposition home or self-care (01) | LOC: PSN 13:18 | PROVIDERS: PCP Nurse Practitioner; Referring Provider Physician Assistant Medical; Visit Provider Physician Assistant Medical | DX: I48.19 Other persistent atrial fibrillation (principal) | CPT/HCPCS: 93225; 93226 ==

== ENCOUNTER → 2024-10-14 | Outpatient (CLI) | payer MEDICARE, SELFPAY | END | disposition home or self-care (01) | LOC: PSN 08:30 | PROVIDERS: PCP Nurse Practitioner; Referring Provider Internal Medicine Critical Care Medicine; Visit Provider Internal Medicine Critical Care Medicine | DX: R06.09 Other forms of dyspnea (principal) | CPT/HCPCS: 94060; 94726; 94729 ==

== ENCOUNTER → 2024-10-16 | Outpatient (CLI) | payer MEDICARE, SELFPAY ==
[2024-10-16 11:04] VITALS: PULSE 75; PULSE 77; PULSE 79; PULSE 81; PULSE 82; PULSE 83; PULSE 84; PULSE 87; O2SAT 95; O2SAT 96; O2SAT 97; O2SAT 98
--- NOTE | 2024-10-17 10:56 | PCM.PSN.6M ---
PSN 6 Minute Walk Test 6 Minute Walk Test 6 Minute Walk Test: 6 Minute Walk Test PSN:6-Minute Walk Test Start: 10/16/24 11:04 Freq: Status: Active Protocol: RESP.6MINW Document 10/16/24 11:04 SHARONWESLEY (Rec: 10/16/24 11:06 CLAREDARLENEON [id number]) 6 Minute Walk Test Date Performed 10/16/24 Time Performed 10:45 Height 5 ft 2 in Weight: 139 lb Weight in Pounds 139.[address]: Nav Gonzalez Assistive device Cane used: Pre-test Oxygen Delivery Room Air Method Pulse Ox (%) 96 Pulse Rate (60-100 79 beats/min) Dyspnea Ashtyn Scale ( 0 0-10) Exertion Ashtyn Scale 6 (6-20) 1st minute Oxygen Delivery Room Air Method Pulse Ox (%) 98 Pulse Rate (60-100 87 beats/min) 2nd minute Oxygen Delivery Room Air Method Pulse Ox (%) 98 Pulse Rate (60-100 82 beats/min) Number of Rests 1 Taken 3rd minute Oxygen Delivery Room Air Method Pulse Ox (%) 98 Pulse Rate (60-100 81 beats/min) 4th minute Oxygen Delivery Room Air Method Pulse Ox (%) 95 Pulse Rate (60-100 84 beats/min) Number of Rests 1 Taken 5th minute Oxygen Delivery Room Air Method Pulse Ox (%) 97 Pulse Rate (60-100 83 beats/min) Number of Rests 1 Taken 6th minute Oxygen Delivery Room Air Method Pulse Ox (%) 96 Pulse Rate (60-100 77 beats/min) Dyspnea Ashtyn Scale ( 4 0-10) Exertion Ashtyn Scale 14 (6-20) Post-test Oxygen Delivery Room Air Method Pulse Ox (%) 98 Pulse Rate (60-100 75 beats/min) Full Laps Walked 6 Partial Lap, Number 0 of Tiles Walked Total Distance 354 Walked (ft) Interpretation Interpretation: The patient ambulated 354 feet over the course of 6 minutes beginning on room air with use of a cane. Pretesting oxygen saturation was noted to be 96% on room air. With ambulation, the sterling oxygen saturation was 95%. Although there was evidence of impaired walk distance, there was no significant exertional oxygen desaturation. Recommendations Recommendations: There is no indication for the use of supplemental oxygen at this time.
== END | disposition home or self-care (01) ==
LOC: PSN 10:35
PROVIDERS: PCP Nurse Practitioner; Referring Provider Internal Medicine Critical Care Medicine; Visit Provider Internal Medicine Critical Care Medicine
DX: R06.09 Other forms of dyspnea (principal)
CPT/HCPCS: 94618

== ENCOUNTER → 2024-11-07 | Outpatient (CLI) | payer MEDICARE, SELFPAY ==
[2024-11-07 12:48] LABS: Hematocrit 34.8 % (37-47); Hemoglobin 11.1 g/dL (12.0-15.0); Immature Granulocytes Count 0.010 X10^3/uL (0.0-0.0); Mean Corp Hgb Conc 31.9 g/dL (32-36); Mean Corpuscular Volume 89.2 fL (81-99); Mean Platelet Vol. 9.8 fl (6.2-12.0); NRBC Flagged by Analyzer 0 % (0-5); Platelet Count 185 K/mm3 (150-450); RBC Distribution Width CV 14.6 % (11.6-14.6); RBC Distribution Width SD 47.9 fl (35.1-43.9); Red Blood Count 3.90 M/mm3 (4.2-5.4); White Blood Count 4.9 K/mm3 (4.4-11.0)
== END | disposition home or self-care (01) ==
LOC: LAB 11:57
PROVIDERS: PCP Nurse Practitioner; Referring Provider Nurse Practitioner Family; Visit Provider Nurse Practitioner Family
DX: R06.02 Shortness of breath (principal)
CPT/HCPCS: 36415; 85025